=== PATIENT | male | born 1965 | race African-American/Black ===

== ENCOUNTER 2017-01-25 13:13 | Inpatient (IN) | payer OTHER ==
[2017-01-25] VITALS (7 sets, daily range): BP systolic 145–180; BP diastolic 98–114; PULSE 87–115; RESP 16–32; TEMP 97.5–98.2; O2SAT 94–98
[~2017-01-25] VITALS: Ht 165.1 cm; Wt 152.4 kg
[~2017-01-25 13:13] MED LIST: CORE25TA PO; FURO20 PO; LISI-587 PO; SPIR25 PO
[2017-01-25] MEDS ORDERED: potassium (13:57)
[2017-01-25] MEDS ORDERED: FURO40TA PO (13:57)
[2017-01-25] MEDS ORDERED: ASPI81CH37 CHEW (13:57)
[2017-01-25] MEDS ORDERED: LISI20TA3 PO (13:57)
[2017-01-25] MEDS ORDERED: CARV25TA PO (13:57)
[2017-01-25] MEDS ORDERED: FUROSEMIDE 40 MG/4 ML VIAL IV PUSH ONE (14:00)
[2017-01-25] MEDS ORDERED: K-TA10TA PO (14:17)
--- NOTE | 2017-01-25 14:17 | PD ---
HPI Chief Complaint: Respiratory Symptoms Time Seen by Provider: 14:15 Travel History International Travel<30 days: No Contact w/Intl Traveler<30days: No Traveled to known affect area: No History of Present Illness HPI 51-year-old male that presents to the ED for evaluation of shortness of breath with exertion as well as swelling. Patient has a history of CHF. Questionable compliance. Per patient his been on disability but apparently he is Dr. do not believe that he was in disability anymore so he's had insurance issues as well as money issues keeping his prescriptions under control. Per patient his been taking some of his Lasix but occasionally in all the time. He denies any chest pain. Per patient he feels swollen. His legs are swollen. He states that he feels short of breath with exertion but for the past couple of weeks his been getting worse to the point where he is short of breath even with just sitting or lying. He states that he feels more swelling on his abdomen as well. He has not eaten today. He has not seen anybody for this. Denies any recent travel or injury. No history of smoking. History of high blood pressure but no diabetes. History of high cholesterol. States that his pain is 2 out of 10 mainly on the lower legs. He does have some chronic changes in his legs from the swelling. PFSH Past Medical History Hx Anticoagulant Therapy: No Cardiovascular Problems: Yes (CHF, HTN ) High Cholesterol: Yes Congestive Heart Failure: Yes Hypertension: Yes Integumentary: Yes (chronic ulcers to bilateral lower extremities) Influenza Vaccination: No Past Surgical History Abdominal Surgery: Yes (hernia repair) Social History Alcohol Use: No Tobacco Use: No Substance Use: No Allergies-Medications (Allergen,Severity, Reaction): Coded Allergies: Dairy (Verified Allergy, Severe, 01/25/17) Reported Meds & Prescriptions Reported Meds & Active Scripts Active Reported K-Tab (Potassium Chloride) 10 Meq Tab 10 Meq PO DAILY Aspirin Low Dose (Aspirin) 81 Mg Chew 81 Mg CHEW DAILY Lisinopril-Hctz 20-25 Mg Tab 1 Tab PO DAILY Furosemide 40 Mg Tab 40 Mg PO BID Carvedilol 25 Mg Tab 25 Mg PO BID Review of Systems Except as stated in HPI: all other systems reviewed are Neg Physical Exam Narrative GENERAL: SKIN: Warm and dry. HEAD: Atraumatic. Normocephalic. EYES: Pupils equal and round. No scleral icterus. No injection or drainage. ENT: No nasal bleeding or discharge. Mucous membranes pink and moist. Tongue is midline. No uvula deviation. NECK: Trachea midline. No JVD. CARDIOVASCULAR: Tachycardic rate and rhythm. No murmurs, S3, S4. RESPIRATORY: No accessory muscle use. Clear to auscultation. Breath sounds equal bilaterally. GASTROINTESTINAL: Abdomen soft, non-tender, nondistended. Hepatic and splenic margins not palpable. MUSCULOSKELETAL: Extremities without clubbing, cyanosis, or edema. No obvious deformities. Full range of motion of the upper and lower extremities bilaterally. 2+ pulses bilaterally. 2+ pitting edema in the lower extremities with venous changes noted. NEUROLOGICAL: Awake and alert. No obvious cranial nerve deficits. Motor grossly within normal limits. Five out of 5 muscle strength in the arms and legs. Normal speech. PSYCHIATRIC: Appropriate mood and affect; insight and judgment normal. Data Data Last Documented VS Vital Signs Date Time Temp Pulse Resp B/P Pulse Ox O2 Delivery O2 Flow Rate FiO2 01/25/17 14:30 113 32 180/114 94 Nasal Cannula 2 01/25/17 13:15 98.2 Orders Electrocardiogram (01/25/17 13:56) Complete Blood Count With Diff (01/25/17 13:56) Comprehensive Metabolic Panel (01/25/17 13:56) Ckmb (Isoenzyme) Profile (01/25/17 13:56) Troponin I (01/25/17 13:56) B-Type Natriuretic Peptide (01/25/17 13:56) Prothrombin Time / Inr (Pt) (01/25/17 13:56) Act Partial Throm Time (Ptt) (01/25/17 13:56) Urinalysis - C+S If Indicated (01/25/17 13:56) Chest, Single Ap (01/25/17 13:56) Iv Access Insert/Monitor (01/25/17 13:56) Ecg Monitoring (01/25/17 13:56) Oximetry (01/25/17 13:56) Furosemide Inj (Lasix Inj) (01/25/17 14:00) Us Leg Venous Doppler Bilat (01/25/17 ) CKMB (01/25/17 14:00) CKMB% (01/25/17 14:00) Potassium Chloride (Kcl) (01/25/17 15:00) Aspirin (Aspirin) (01/25/17 15:00) Labs Laboratory Tests Test 01/25/17 01/25/17 14:00 14:43 White Blood Count 5.8 TH/MM3 Red Blood Count 5.52 MIL/MM3 Hemoglobin 13.2 GM/DL Hematocrit 41.9 % Mean Corpuscular Volume 76.0 FL Mean Corpuscular Hemoglobin 24.0 PG Mean Corpuscular Hemoglobin 31.5 % Concent Red Cell Distribution Width 19.3 % Platelet Count 277 TH/MM3 Mean Platelet Volume 9.0 FL Neutrophils (%) (Auto) 64.6 % Lymphocytes (%) (Auto) 23.6 % Monocytes (%) (Auto) 9.8 % Eosinophils (%) (Auto) 0.8 % Basophils (%) (Auto) 1.2 % Neutrophils # (Auto) 3.8 TH/MM3 Lymphocytes # (Auto) 1.4 TH/MM3 Monocytes # (Auto) 0.6 TH/MM3 Eosinophils # (Auto) 0.0 TH/MM3 Basophils # (Auto) 0.1 TH/MM3 CBC Comment AUTO DIFF Prothrombin Time 13.8 SEC Prothromb Time International 1.2 RATIO Ratio Activated Partial 27.8 SEC Thromboplast Time Sodium Level 145 MEQ/L Potassium Level 2.9 MEQ/L Chloride Level 105 MEQ/L Carbon Dioxide Level 29.9 MEQ/L Anion Gap 10 MEQ/L Blood Urea Nitrogen 13 MG/DL Creatinine 1.15 MG/DL Estimat Glomerular Filtration 81 ML/MIN Rate Random Glucose 114 MG/DL Calcium Level 9.0 MG/DL Total Bilirubin 1.4 MG/DL Aspartate Amino Transf 31 U/L (AST/SGOT) Alanine Aminotransferase 22 U/L (ALT/SGPT) Alkaline Phosphatase 112 U/L Total Creatine Kinase 251 U/L Creatine Kinase MB 3.6 NG/ML Troponin I 0.06 NG/ML B-Type Natriuretic Peptide 579 PG/ML Total Protein 7.2 GM/DL Albumin 3.0 GM/DL Urine Color YELLOW Urine Turbidity CLEAR Urine pH 7.0 Urine Specific [place] 1.010 Urine Protein 30 mg/dL Urine Glucose (UA) NEG mg/dL Urine Ketones NEG mg/dL Urine Occult Blood NEG Urine Nitrite NEG Urine Bilirubin NEG Urine Urobilinogen 2.0 MG/DL Urine Leukocyte Esterase NEG Urine WBC LESS THAN 1 /hpf Urine Hyaline Casts 5 /lpf Urine Mucus FEW /lpf Microscopic Urinalysis Comment CULT NOT INDICATED MDM Medical Decision Making Medical Screen Exam Complete: Yes Emergency Medical Condition: Yes Medical Record Reviewed: Yes Interpretation(s) CBC & BMP Diagram 01/25/17 14:00 LFTS WNL BNP in the 500s Troponin of 0.06 EKG shows sinus tachycardia but no sign of acute ischemia or arrhythmia but by me and attending. Last Impressions Chest X-Ray 01/25/17 1356 Signed Impressions: Service Date/Time: Wednesday, January 25, 2017 14:05 - CONCLUSION: Enlargement of the cardiac silhouette. No acute pulmonary abnormality is identified. Mane Ramirez MD Differential Diagnosis CHF exacerbation versus CHF versus fluid overload versus chest pain versus a typical chest pain versus pleural effusion Narrative Course 51-year-old male that presents to the ED for evaluation of what appears to be CHF exacerbation. Patient was properly examined and was found to have signs and symptoms consistent with fluid overload secondary to noncompliance with CHF treatment. At this time I recommend labs and imaging. Patient is agreement with this plan. Patient was given IV Lasix here in the ED. Labs and imaging showed elevated troponin as well as BNP. Patient has signs and symptoms very consistent with CHF exacerbation. Patient is noncompliant. Because of this I do recommend admission for CHF exacerbation and workup of the positive troponin. This was discussed with the patient is in agreement with plan. Discussed this with my attending Dr. Looney who agrees to admission. Case discussed with Dr. Tran who agrees to admission. Procedures EKG Prior to Arrival: No Diagnosis Primary Impression: Acute exacerbation of CHF (congestive heart failure) Qualified Code: I50.23 - Acute on chronic systolic congestive heart failure Additional Impression: Elevated troponin Admitting Information Admitting Physician Requests: Observation Piyush Brewer January 25, 2017 14:17
[2017-01-25 14:25] LABS: AUTOMATED NEUTROPHIL # 3.8 TH/MM3 (1.8-7.7); BASOPHIL # 0.1 TH/MM3 (0-0.2); BASOPHIL % 1.2 % (0.0-2.0); EOSINOPHIL % 0.8 % (0.0-4.0); HEMATOCRIT 41.9 % (39.0-51.0); HEMO FLAGS AUTO DIFF; LYMPH % 23.6 % (9.0-44.0); LYMPHOCYTE # 1.4 TH/MM3 (1.0-4.8); MEAN CORPUSCULAR HGB CONC 31.5 % (32.0-36.0); MONO % 9.8 % (0.0-8.0); NEUT % 64.6 % (16.0-70.0); PLATELET COUNT 277 TH/MM3 (150-450); RED BLOOD COUNT 5.52 MIL/MM3 (4.50-5.90); RED CELL DISTRIBUTION WIDTH 19.3 % (11.6-17.2); WHITE BLOOD COUNT 5.8 TH/MM3 (4.0-11.0)
[2017-01-25 14:32] LABS: APTT (PATIENT) 27.8 SEC (24.3-30.1); INTERNATIONAL NORMALIZED RATIO 1.2 RATIO; PROTHROMBIN TIME - PATIENT 13.8 SEC (9.8-11.6)
--- NOTE | 2017-01-25 14:36 | RADRPT ---
EXAM DATE/TIME: 01/25/2017 14:05 [facility] COMPARISON: No previous studies available for comparison. INDICATIONS : Short of breath and abdomen distention. MEDICAL HISTORY : None. SURGICAL HISTORY : None. ENCOUNTER: Initial ACUITY: 4 - 6 days PAIN SCORE: 0/10 LOCATION: Bilateral chest FINDINGS: Portable AP view of the chest demonstrates enlargement of the cardiac silhouette. No pleural effusion , airspace consolidation, or pneumothorax is identified. The bones and soft tissues demonstrate no ac malissa finding. CONCLUSION: Enlargement of the cardiac silhouette. No acute pulmonary abnormality is identified. Mane Ramirez MD on January 25, 2017 at 14:33 Board Certified Radiologist. This report was verified electronically.
[2017-01-25 14:50] LABS: ALKALINE PHOSPHATASE 112 U/L (45-117); ALT (GPT) 22 U/L (12-78); ANION GAP 10 MEQ/L (5-15); AST (GOT) 31 U/L (15-37); BICARBONATE 29.9 MEQ/L (21.0-32.0); BLOOD UREA NITROGEN 13 MG/DL (7-18); CHLORIDE 105 MEQ/L (98-107); CREATINE KINASE 251 U/L (39-308); GLOMERULAR FILTRATION RATE 81 ML/MIN (>89); SODIUM (NA) 145 MEQ/L (136-145); TOTAL BILIRUBIN ADULT 1.4 MG/DL (0.2-1.0)
[2017-01-25 14:53] LABS: POTASSIUM 2.9 MEQ/L (3.5-5.1)
[2017-01-25] MEDS ORDERED: POTASSIUM CHLORIDE 10 MEQ CONTROLLED RELEASE TAB PO ONE ×2 (15:00→19:00)
[2017-01-25] MEDS ORDERED: ASPIRIN 325 MG TAB PO ONE (15:00)
[2017-01-25 15:05] LABS: BLOOD, URINE NEG (NEG); COMMENT (UR) CULT NOT INDICATED; CULTURE IF INDICATED CULT NOT INDICATED; GLUCOSE,URINE NEG (NEG); HYALINE CAST, URINE 5 /lpf (RARE); KETONE, URINE NEG (NEG); MUCUS URINE FEW /lpf (OCC); NITRITE,URINE NEG (NEG); URINE COLOR YELLOW (YELLW/STRAW)
[2017-01-25 15:14] LABS: CKMB 3.6 NG/ML (0.5-3.6)
[2017-01-25] MEDS ORDERED: ENALAPRILAT 1.25 MG/ML VIAL IV PUSH PRN (15:30)
--- NOTE | 2017-01-25 15:51 | HHI.HP ---
[facility] [place] [facility] Primary Care Physician No Primary Care Physician Admission Diagnosis CHF exacerbation, positive troponin Diagnoses: (1) Acute exacerbation of CHF (congestive heart failure) Diagnosis: Principal Chief Complaint: shortness of breath Travel History International Travel<30 Days: No Contact w/Intl Traveler <30 Da: No Traveled to Known Affected Are: No History of Present Illness patient is a 51 y/o male with history of CHF, noncompliant with medical treatment, presented to ER with sob. he says that he was diagnosed with heart failure back in 2008. he says that after he lost his disability he couldn't have a follow-up with his doctor and couldn't get his medications. he says that he's had sob for a while and noticed that his feet legs are swollen and getting worse. he reports orthopnea. he's not sure if he's gained any weights . he denies any chest pain. Review of Systems Respiratory: COMPLAINS OF: Shortness of breath Cardiovascular: COMPLAINS OF: Dyspnea on Exertion, Lower Extremity Edema, Orthopnea Past Family Social History Past Medical History CHF hypertension Past Surgical History none Reported Medications K-Tab (Potassium Chloride) 10 Meq Tab 10 Meq PO DAILY Aspirin Low Dose (Aspirin) 81 Mg Chew 81 Mg CHEW DAILY Lisinopril-Hctz 20-25 Mg Tab 1 Tab PO DAILY Furosemide 40 Mg Tab 40 Mg PO BID Carvedilol 25 Mg Tab 25 Mg PO BID Allergies: Coded Allergies: Dairy (Verified Allergy, Severe, 01/25/17) Active Ordered Medications Current Medications Furosemide (Lasix Inj) 40 mg ONCE ONCE IV PUSH Last administered on 01/25/17 14:06; Start 01/25/17 at 14:00; Stop 01/25/17 at 14:01; Status DC Potassium Chloride (KCl) 30 meq ONCE ONCE PO Last administered on 01/25/17 15: 12; Start 01/25/17 at 15:00; Stop 01/25/17 at 15:01; Status DC Aspirin (Aspirin) 325 mg ONCE ONCE PO Last administered on 01/25/17 15:12; Start 01/25/17 at 15:00; Stop 01/25/17 at 15:01; Status DC Furosemide (Lasix Inj) 40 mg DAILY IV PUSH ; Start 01/26/17 at 09:00 Potassium Chloride (KCl) 40 meq ONCE ONCE PO ; Start 01/25/17 at 19:00; Stop 01/25/17 at 19:01 Potassium Chloride (KCl) 20 meq DAILY PO ; Start 01/26/17 at 09:00 Lisinopril (Prinivil) 20 mg DAILY PO ; Start 01/26/17 at 09:00 Enalaprilat (Vasotec Inj) 1.25 mg Q8H PRN IV PUSH SBP> OR = 180, DBP> OR = 100 ; Start 01/25/17 at 15:30 Aspirin (Aspirin Chew) 81 mg DAILY CHEW ; Start 01/26/17 at 09:00 Carvedilol (Coreg) 25 mg BID PO ; Start 01/25/17 at 21:00 Family History heart disease in mother. Social History no smoking or drinking. Physical Exam Vital Signs Vital Signs Date Time Temp Pulse Resp B/P Pulse Ox O2 Delivery O2 Flow Rate FiO2 01/25/17 14:30 113 32 180/114 94 Nasal Cannula 2 01/25/17 13:58 115 95 Nasal Cannula 2 01/25/17 13:15 98.2 87 16 178/100 95 Physical Exam GENERAL; obese male with some sob but with no acute distress. SKIN: No rashes, ecchymoses or lesions. Cool and dry. HEAD: Atraumatic. Normocephalic. No temporal or scalp tenderness. EYES: Pupils equal round and reactive. Extraocular motions intact. No scleral icterus. No injection or drainage. ENT: Nose without bleeding, purulent drainage or septal hematoma. Throat without erythema, tonsillar hypertrophy or exudate. Uvula midline. Airway patent. NECK: Trachea midline. No JVD or lymphadenopathy. Supple, nontender, no meningeal signs. CARDIOVASCULAR: Regular rate and rhythm without murmurs, gallops, or rubs. RESPIRATORY: Clear to auscultation. Breath sounds equal bilaterally. No wheezes , rales, or rhonchi. GASTROINTESTINAL: Abdomen soft, non-tender, nondistended. No hepato-splenomegaly , or palpable masses. No guarding. MUSCULOSKELETAL: Extremities with bilateral pedal edema. NEUROLOGICAL: Awake and alert. Cranial nerves II through XII intact. Motor and sensory grossly within normal limits. Five out of 5 muscle strength in all muscle groups. Normal speech. Laboratory Laboratory Tests Test 01/25/17 01/25/17 14:00 14:43 White Blood Count 5.8 Red Blood Count 5.52 Hemoglobin 13.2 Hematocrit 41.9 Mean Corpuscular Volume 76.0 Mean Corpuscular Hemoglobin 24.0 Mean Corpuscular Hemoglobin 31.5 Concent Red Cell Distribution Width 19.3 Platelet Count 277 Mean Platelet Volume 9.0 Neutrophils (%) (Auto) 64.6 Lymphocytes (%) (Auto) 23.6 Monocytes (%) (Auto) 9.8 Eosinophils (%) (Auto) 0.8 Basophils (%) (Auto) 1.2 Neutrophils # (Auto) 3.8 Lymphocytes # (Auto) 1.4 Monocytes # (Auto) 0.6 Eosinophils # (Auto) 0.0 Basophils # (Auto) 0.1 CBC Comment AUTO DIFF Prothrombin Time 13.8 Prothromb Time International 1.2 Ratio Activated Partial 27.8 Thromboplast Time Sodium Level 145 Potassium Level 2.9 Chloride Level 105 Carbon Dioxide Level 29.9 Anion Gap 10 Blood Urea Nitrogen 13 Creatinine 1.15 Estimat Glomerular Filtration 81 Rate Random Glucose 114 Calcium Level 9.0 Total Bilirubin 1.4 Aspartate Amino Transf 31 (AST/SGOT) Alanine Aminotransferase 22 (ALT/SGPT) Alkaline Phosphatase 112 Total Creatine Kinase 251 Creatine Kinase MB 3.6 Troponin I 0.06 B-Type Natriuretic Peptide 579 Total Protein 7.2 Albumin 3.0 Urine Color YELLOW Urine Turbidity CLEAR Urine pH 7.0 Urine Specific [place] 1.010 Urine Protein 30 Urine Glucose (UA) NEG Urine Ketones NEG Urine Occult Blood NEG Urine Nitrite NEG Urine Bilirubin NEG Urine Urobilinogen 2.0 Urine Leukocyte Esterase NEG Urine WBC LESS THAN 1 Urine Hyaline Casts 5 Urine Mucus FEW Microscopic Urinalysis Comment CULT NOT INDICATED Result Diagram: 01/25/17 1400 01/25/17 1400 Imaging Last Impressions Chest X-Ray 01/25/17 1356 Signed Impressions: Service Date/Time: Wednesday, January 25, 2017 14:05 - CONCLUSION: Enlargement of the cardiac silhouette. No acute pulmonary abnormality is identified. Mane Ramirez MD EKG; sinus tachycardia Assessment and Plan Assessment and Plan A/P - acute on chronic CHF- type unknown at this time continue with IV lasix- will resume lisinopril and coreg- will monitor the urine output and clinical response will check echo/ venous doppler of both legs pending. -minimal elevation of troponin- likely due to CHF- denies chest pain and no acute EKG changes received aspirin in ER- will monitor the trend -hypertension; resume lisinopril and coreg-vasotec as needed- will monitor and adjust the regimen as needed. -hypokalemia; will replace and monitor -DVT prophylaxis with lovenox Discussed Condition With ER and the patient. Problem Qualifiers (1) Acute exacerbation of CHF (congestive heart failure): Qualified Code: I50.23 - Acute on chronic systolic congestive heart failure Luis Miguel Solorzano MD January 25, 2017 15:51
[2017-01-25 16:17] LABS: PLATELET ESTIMATE SMEAR NORMAL (NORMAL); PLATELET MORPHOLOGY ENLARGED (NORMAL); SCAN/DIFF AUTO DIFF CONFIRMED
[2017-01-25 16:18] LABS: OVALOCYTES 1+ (NORMAL); TARGET CELLS 1+ (NORMAL); TEARDROP RBCS 1+ (NORMAL)
[2017-01-25] MEDS: ENOXAPARIN SODIUM 40 MG/0.4 ML SYRINGE SQ SCH (16:28)
--- NOTE | 2017-01-25 17:27 | RADRPT ---
EXAM DATE/TIME: 01/25/2017 16:17 [facility] COMPARISON: No previous studies available for comparison. INDICATIONS : Bilateral leg swelling. MEDICAL HISTORY : Congestive heart failure. Hypercholesterolemia. Hypertension. Bilateral leg ulcers. SURGICAL HISTORY : Umbilical hernia repair. ENCOUNTER: Initial ACUITY: 1 day PAIN SCORE: 9/10 LOCATION: Bilateral legs. TECHNIQUE: Venous ultrasound of the left and right leg was performed from the inguinal ligament to the proximal calf. Real-time, color Doppler and spectral tracing, compression and augmentation techniques were us ed. FINDINGS: RIGHT LEG: There is normal compressibility of the deep venous system from the inguinal region to the proximal ca lf. No echogenic clot is seen in the lumen of the common femoral, femoral, popliteal, and posterior tibial veins. There is a normal response of the venous system to proximal and distal augmentation an d respiration. There is sporadic thrombus present within the superficial greater saphenous vein. LEFT LEG: There is normal compressibility of the deep venous system from the inguinal region to the proximal ca lf. No echogenic clot is seen in the lumen of the common femoral, femoral, popliteal, and posterior tibial veins. There is a normal response of the venous system to proximal and distal augmentation an d respiration. CONCLUSION: Greater saphenous vein thrombus in the right leg. No evidence of DVT in either leg. Mane Christianson MD on January 25, 2017 at 17:23 Board Certified Radiologist. This report was verified electronically.
[2017-01-25] MEDS: CARVEDILOL 12.5 MG TAB PO SCH (20:49)
[2017-01-26] VITALS (9 sets, daily range): BP systolic 128–149; BP diastolic 73–99; PULSE 87–97; RESP 18–20; TEMP 97.6–98.6; O2SAT 94–97
[2017-01-26 04:01] LABS: BICARBONATE 30.6 MEQ/L (21.0-32.0); POTASSIUM 3.3 MEQ/L (3.5-5.1)
[2017-01-26] MEDS ORDERED: POTASSIUM CHLORIDE 8 MEQ CONTROLLED RELEASE TAB PO ONE (05:15)
[2017-01-26] MEDS: ASPIRIN EC 81 MG TABEC PO SCH (08:12)
[2017-01-26] MEDS: LISINOPRIL 20 MG TAB PO SCH (08:13)
[2017-01-26] MEDS: POTASSIUM CHLORIDE 20 MEQ CONTROLLED RELEASE TAB PO SCH (08:13)
[2017-01-26] MEDS: CARVEDILOL 12.5 MG TAB PO SCH ×2 (08:14→22:50)
[2017-01-26] MEDS: FUROSEMIDE 40 MG/4 ML VIAL IV PUSH SCH (08:15)
[2017-01-26] MEDS ORDERED: ASPIRIN 81 MG CHEW TAB CHEW SCH (09:00)
--- NOTE | 2017-01-26 10:25 | EKG ---
Date Performed: 01/25/2017 Time Performed: 14:04:34 PTAGE: 51 years EKG: SINUS TACHYCARDIA POSSIBLE LEFT ATRIAL ENLARGEMENT MODERATE INTRAVENTRICULAR CONDUCTION DEL AY ST DEVIATION AND MODERATE T-WAVE ABNORMALITY, CONSIDER LATERAL ISCHEMIA ABNORMAL ECG NO PREVIOUS TRACING DOCTOR: Eric Bradley Interpretating Date/Time 01/26/2017 10:24:26
--- NOTE | 2017-01-26 11:53 | HHI.PR ---
Subjective Remarks in no acute distress. no chest pain. says that overall fells fine. Objective Vitals Vital Signs Date Time Temp Pulse Resp B/P Pulse Ox O2 Delivery O2 Flow Rate FiO2 01/26/17 09:00 Nasal Cannula 2.00 01/26/17 08:50 96 Nasal Cannula 2.00 01/26/17 04:38 98.5 97 20 149/99 94 01/26/17 04:00 Nasal Cannula 2.00 01/26/17 00:00 97.6 96 20 129/86 97 01/26/17 00:00 Nasal Cannula 2.00 01/25/17 21:16 113 01/25/17 20:00 97.5 108 20 155/99 98 01/25/17 20:00 Nasal Cannula 2.00 01/25/17 17:30 96 Nasal Cannula 2.00 01/25/17 16:30 102 22 145/98 95 Nasal Cannula 2 01/25/17 14:30 113 32 180/114 94 Nasal Cannula 2 01/25/17 13:58 115 95 Nasal Cannula 2 01/25/17 13:15 98.2 87 16 178/100 95 I/O 01/25/17 01/25/17 01/25/17 01/26/17 01/26/17 01/26/17 07:00 15:00 23:00 07:00 15:00 23:00 Intake Total 480 ml 240 ml Output Total 200 ml 400 ml Balance -200 ml 80 ml 240 ml Intake Oral 480 ml 240 ml Output Urine Total 200 ml 400 ml # Voids 1 3 Result Diagram: 01/25/17 1400 01/26/17 0327 Imaging Last Impressions Chest X-Ray 01/25/17 1356 Signed Impressions: Service Date/Time: Wednesday, January 25, 2017 14:05 - CONCLUSION: Enlargement of the cardiac silhouette. No acute pulmonary abnormality is identified. Mane Ramirez MD Lower Extremity Ultrasound 01/25/17 0000 Signed Impressions: Service Date/Time: Wednesday, January 25, 2017 16:17 - CONCLUSION: Greater saphenous vein thrombus in the right leg. No evidence of DVT in either leg. Mane Christianson MD Objective Remarks GENERAL: This is a well-nourished, well-developed patient, in no apparent distress. CARDIOVASCULAR: Regular rate and regular rhythm without murmurs, gallops, or rubs. RESPIRATORY: Clear to auscultation. Breath sounds equal bilaterally. No wheezes , rales, or rhonchi. GASTROINTESTINAL: Abdomen soft, non-tender, nondistended. Normal, active bowel sounds MUSCULOSKELETAL: Extremities with bilateral pedal edema NEURO: Alert & Oriented x4 to person, place, time, situation. Moves all ext x4 Procedures none Medications and IVs Current Medications Furosemide (Lasix Inj) 40 mg ONCE ONCE IV PUSH Last administered on 01/25/17 14:06; Start 01/25/17 at 14:00; Stop 01/25/17 at 14:01; Status DC Potassium Chloride (KCl) 30 meq ONCE ONCE PO Last administered on 01/25/17 15: 12; Start 01/25/17 at 15:00; Stop 01/25/17 at 15:01; Status DC Aspirin (Aspirin) 325 mg ONCE ONCE PO Last administered on 01/25/17 15:12; Start 01/25/17 at 15:00; Stop 01/25/17 at 15:01; Status DC Furosemide (Lasix Inj) 40 mg DAILY IV PUSH Last administered on 01/26/17 08:15 ; Start 01/26/17 at 09:00 Potassium Chloride (KCl) 40 meq ONCE ONCE PO Last administered on 01/25/17 20: 50; Start 01/25/17 at 19:00; Stop 01/25/17 at 19:01; Status DC Potassium Chloride (KCl) 20 meq DAILY PO Last administered on 01/26/17 08:13; Start 01/26/17 at 09:00 Lisinopril (Prinivil) 20 mg DAILY PO Last administered on 01/26/17 08:13; Start 01/26/17 at 09:00 Enalaprilat (Vasotec Inj) 1.25 mg Q8H PRN IV PUSH SBP> OR = 180, DBP> OR = 100 ; Start 01/25/17 at 15:30 Aspirin (Aspirin Chew) 81 mg DAILY CHEW ; Start 01/26/17 at 09:00; Stop 01/26/17 at 09:00; Status DC Carvedilol (Coreg) 25 mg BID PO Last administered on 01/26/17 08:14; Start 01/25 at 21:00 Aspirin (Ecotrin Ec) 81 mg DAILY PO Last administered on 01/26/17 08:12; Start 01/26/17 at 09:00 Enoxaparin Sodium (Lovenox Inj) 40 mg Q24H SQ Last administered on 01/25/17 16: 28; Start 01/25/17 at 16:00 Potassium Chloride (KCl) 40 meq ONCE ONCE PO Last administered on 01/26/17 06: 39; Start 01/26/17 at 05:15; Stop 01/26/17 at 05:16; Status DC A/P Assessment and Plan A/P - acute on chronic CHF- type unknown at this time continue with IV lasix- continue lisinopril and coreg- will monitor the urine output and clinical response echo pending. venous doppler of the lower extremities negative for DVT. -minimal elevation of troponin- likely due to CHF- denies chest pain and no acute EKG changes received aspirin in ER- -hypertension; resumed lisinopril and coreg-vasotec as needed- will monitor and adjust the regimen as needed. -hypokalemia; will replace and monitor -DVT prophylaxis with lovenox Luis Miguel Solorzano MD January 26, 2017 11:53
[2017-01-26] MEDS ORDERED: POTASSIUM CHLORIDE 10 MEQ CONTROLLED RELEASE TAB PO ONE (12:00)
[2017-01-26] MEDS ORDERED: FUROSEMIDE 20 MG/2 ML VIAL IV PUSH ONE (14:00)
[2017-01-26] MEDS: ENOXAPARIN SODIUM 40 MG/0.4 ML SYRINGE SQ SCH (16:08)
[2017-01-27] VITALS (9 sets, daily range): BP systolic 113–134; BP diastolic 62–88; PULSE 84–94; RESP 20; TEMP 97.2–98.1; O2SAT 93–99
[2017-01-27 08:08] LABS: BICARBONATE 31.1 MEQ/L (21.0-32.0); POTASSIUM 3.5 MEQ/L (3.5-5.1)
[2017-01-27] MEDS: ASPIRIN EC 81 MG TABEC PO SCH (08:57)
[2017-01-27] MEDS: LISINOPRIL 20 MG TAB PO SCH (08:57)
[2017-01-27] MEDS: CARVEDILOL 12.5 MG TAB PO SCH ×2 (08:57→22:20)
[2017-01-27] MEDS: POTASSIUM CHLORIDE 20 MEQ CONTROLLED RELEASE TAB PO SCH (08:57)
[2017-01-27] MEDS: FUROSEMIDE 40 MG/4 ML VIAL IV PUSH SCH (08:58)
--- NOTE | 2017-01-27 09:10 | HHI.PR ---
Subjective Remarks in no acute distress. no sob or chest pain. d/w the RN and no acute issues over night. Objective Vitals Vital Signs Date Time Temp Pulse Resp B/P Pulse Ox O2 Delivery O2 Flow Rate FiO2 01/27/17 04:00 98.0 93 20 113/70 97 01/27/17 00:00 98.1 93 20 126/85 97 01/27/17 00:00 Nasal Cannula 2.00 01/26/17 23:20 Nasal Cannula 2.00 01/26/17 20:06 97 01/26/17 20:00 Nasal Cannula 2.00 01/26/17 20:00 98.4 95 20 128/73 97 01/26/17 16:00 98.6 90 18 135/90 94 01/26/17 12:00 97.9 87 18 141/90 97 I/O 01/26/17 01/26/17 01/26/17 01/27/17 01/27/17 01/27/17 07:00 15:00 23:00 07:00 15:00 23:00 Intake Total 240 ml 480 ml 320 ml 480 ml Balance 240 ml 480 ml 320 ml 480 ml Intake Oral 240 ml 480 ml 320 ml 480 ml # Voids 2 2 2 # Bowel Movements 1 Result Diagram: 01/25/17 1400 01/27/17 0633 Imaging Last Impressions Chest X-Ray 01/25/17 1356 Signed Impressions: Service Date/Time: Wednesday, January 25, 2017 14:05 - CONCLUSION: Enlargement of the cardiac silhouette. No acute pulmonary abnormality is identified. Mane Ramirez MD Lower Extremity Ultrasound 01/25/17 0000 Signed Impressions: Service Date/Time: Wednesday, January 25, 2017 16:17 - CONCLUSION: Greater saphenous vein thrombus in the right leg. No evidence of DVT in either leg. Mane Christianson MD Objective Remarks GENERAL: This is a well-nourished, well-developed patient, in no apparent distress. CARDIOVASCULAR: Regular rate and regular rhythm without murmurs, gallops, or rubs. RESPIRATORY: Clear to auscultation. Breath sounds equal bilaterally. No wheezes , rales, or rhonchi. GASTROINTESTINAL: Abdomen soft, non-tender, nondistended. Normal, active bowel sounds MUSCULOSKELETAL: Extremities with bilateral pedal edema NEURO: Alert & Oriented x4 to person, place, time, situation. Moves all ext x4 Procedures none Medications and IVs Current Medications Furosemide (Lasix Inj) 40 mg ONCE ONCE IV PUSH Last administered on 01/25/17 14:06; Start 01/25/17 at 14:00; Stop 01/25/17 at 14:01; Status DC Potassium Chloride (KCl) 30 meq ONCE ONCE PO Last administered on 01/25/17 15: 12; Start 01/25/17 at 15:00; Stop 01/25/17 at 15:01; Status DC Aspirin (Aspirin) 325 mg ONCE ONCE PO Last administered on 01/25/17 15:12; Start 01/25/17 at 15:00; Stop 01/25/17 at 15:01; Status DC Furosemide (Lasix Inj) 40 mg DAILY IV PUSH Last administered on 01/26/17 08:15 ; Start 01/26/17 at 09:00 Potassium Chloride (KCl) 40 meq ONCE ONCE PO Last administered on 01/25/17 20: 50; Start 01/25/17 at 19:00; Stop 01/25/17 at 19:01; Status DC Potassium Chloride (KCl) 20 meq DAILY PO Last administered on 01/26/17 08:13; Start 01/26/17 at 09:00 Lisinopril (Prinivil) 20 mg DAILY PO Last administered on 01/26/17 08:13; Start 01/26/17 at 09:00 Enalaprilat (Vasotec Inj) 1.25 mg Q8H PRN IV PUSH SBP> OR = 180, DBP> OR = 100 ; Start 01/25/17 at 15:30 Aspirin (Aspirin Chew) 81 mg DAILY CHEW ; Start 01/26/17 at 09:00; Stop 01/26/17 at 09:00; Status DC Carvedilol (Coreg) 25 mg BID PO Last administered on 01/26/17 22:50; Start 01/25 at 21:00 Aspirin (Ecotrin Ec) 81 mg DAILY PO Last administered on 01/26/17 08:12; Start 01/26/17 at 09:00 Enoxaparin Sodium (Lovenox Inj) 40 mg Q24H SQ Last administered on 01/26/17 16: 08; Start 01/25/17 at 16:00 Potassium Chloride (KCl) 40 meq ONCE ONCE PO Last administered on 01/26/17 06: 39; Start 01/26/17 at 05:15; Stop 01/26/17 at 05:16; Status DC Furosemide (Lasix Inj) 20 mg ONCE ONCE IV PUSH Last administered on 01/26/17 13:20; Start 01/26/17 at 14:00; Stop 01/26/17 at 14:01; Status DC Potassium Chloride (KCl) 30 meq ONCE ONCE PO Last administered on 01/26/17 12: 03; Start 01/26/17 at 12:00; Stop 01/26/17 at 12:01; Status DC A/P Assessment and Plan A/P - acute on chronic CHF- type unknown at this time; echo pending. continue with IV lasix- continue lisinopril and coreg- will monitor the urine output and clinical response venous doppler of the lower extremities negative for DVT. -minimal elevation of troponin- likely due to CHF- denies chest pain and no acute EKG changes continue aspirin. -hypertension; resumed lisinopril and coreg-vasotec as needed- will monitor and adjust the regimen as needed. -hypokalemia; replaced. -DVT prophylaxis with lovenox Discharge Planning dc planning within the next one-two days - pending the clinical response and echo. Luis Miguel Solorzano MD January 27, 2017 09:10
[2017-01-27] MEDS ORDERED: POTASSIUM CHLORIDE 10 MEQ CONTROLLED RELEASE TAB PO ONE (10:00)
[2017-01-27] MEDS ORDERED: FUROSEMIDE 20 MG/2 ML VIAL IV PUSH ONE (14:00)
[2017-01-27] MEDS: ENOXAPARIN SODIUM 40 MG/0.4 ML SYRINGE SQ SCH (16:10)
[2017-01-28] VITALS (9 sets, daily range): BP systolic 113–142; BP diastolic 75–82; PULSE 79–89; RESP 18–20; TEMP 97.6–98.1; O2SAT 93–99
[2017-01-28] MEDS: FUROSEMIDE 40 MG/4 ML VIAL IV PUSH SCH (08:50)
[2017-01-28] MEDS: ASPIRIN EC 81 MG TABEC PO SCH (08:51)
[2017-01-28] MEDS: CARVEDILOL 12.5 MG TAB PO SCH ×2 (08:51→22:07)
[2017-01-28] MEDS: POTASSIUM CHLORIDE 20 MEQ CONTROLLED RELEASE TAB PO SCH (08:51)
[2017-01-28] MEDS: LISINOPRIL 20 MG TAB PO SCH (08:51)
--- NOTE | 2017-01-28 11:11 | HHI.PR ---
Subjective Remarks overall doing fine. no chest pain. says that his sob over improved. no new complaints. Objective Vitals Vital Signs Date Time Temp Pulse Resp B/P Pulse Ox O2 Delivery O2 Flow Rate FiO2 01/28/17 10:55 99 Nasal Cannula 2.00 01/28/17 08:30 97.8 83 18 116/75 98 01/28/17 04:00 Nasal Cannula 2.00 01/28/17 04:00 97.9 84 20 113/79 99 01/28/17 00:00 97.6 80 18 113/75 97 01/28/17 00:00 Nasal Cannula 2.00 01/27/17 21:22 98 Nasal Cannula 2.00 01/27/17 20:00 87 01/27/17 20:00 97.9 94 20 134/62 93 01/27/17 20:00 Nasal Cannula 2.00 01/27/17 14:00 98.0 92 20 132/63 95 01/27/17 12:01 98 Nasal Cannula 2.00 01/27/17 12:00 97.8 84 20 127/88 98 I/O 01/27/17 01/27/17 01/27/17 01/28/17 01/28/17 01/28/17 06:59 14:59 22:59 06:59 14:59 22:59 Intake Total 480 ml 840 ml 240 ml Balance 480 ml 840 ml 240 ml Intake Oral 480 ml 840 ml 240 ml # Voids 2 3 2 # Bowel Movements 0 1 Result Diagram: 01/25/17 1400 01/27/17 0633 Imaging Last Impressions Chest X-Ray 01/25/17 1356 Signed Impressions: Service Date/Time: Wednesday, January 25, 2017 14:05 - CONCLUSION: Enlargement of the cardiac silhouette. No acute pulmonary abnormality is identified. Mane Ramirez MD Lower Extremity Ultrasound 01/25/17 0000 Signed Impressions: Service Date/Time: Wednesday, January 25, 2017 16:17 - CONCLUSION: Greater saphenous vein thrombus in the right leg. No evidence of DVT in either leg. Mane Christianson MD Objective Remarks GENERAL: This is a well-nourished, well-developed patient, in no apparent distress. CARDIOVASCULAR: Regular rate and regular rhythm without murmurs, gallops, or rubs. RESPIRATORY: Clear to auscultation. Breath sounds equal bilaterally. No wheezes , rales, or rhonchi. GASTROINTESTINAL: Abdomen soft, non-tender, nondistended. Normal, active bowel sounds MUSCULOSKELETAL: Extremities with bilateral pedal edema NEURO: Alert & Oriented x4 to person, place, time, situation. Moves all ext x4 Procedures none Medications and IVs Current Medications Furosemide (Lasix Inj) 40 mg ONCE ONCE IV PUSH Last administered on 01/25/17 14:06; Start 01/25/17 at 14:00; Stop 01/25/17 at 14:01; Status DC Potassium Chloride (KCl) 30 meq ONCE ONCE PO Last administered on 01/25/17 15: 12; Start 01/25/17 at 15:00; Stop 01/25/17 at 15:01; Status DC Aspirin (Aspirin) 325 mg ONCE ONCE PO Last administered on 01/25/17 15:12; Start 01/25/17 at 15:00; Stop 01/25/17 at 15:01; Status DC Furosemide (Lasix Inj) 40 mg DAILY IV PUSH Last administered on 01/28/17 08:50 ; Start 01/26/17 at 09:00 Potassium Chloride (KCl) 40 meq ONCE ONCE PO Last administered on 01/25/17 20: 50; Start 01/25/17 at 19:00; Stop 01/25/17 at 19:01; Status DC Potassium Chloride (KCl) 20 meq DAILY PO Last administered on 01/28/17 08:51; Start 01/26/17 at 09:00 Lisinopril (Prinivil) 20 mg DAILY PO Last administered on 01/28/17 08:51; Start 01/26/17 at 09:00 Enalaprilat (Vasotec Inj) 1.25 mg Q8H PRN IV PUSH SBP> OR = 180, DBP> OR = 100 ; Start 01/25/17 at 15:30 Aspirin (Aspirin Chew) 81 mg DAILY CHEW ; Start 01/26/17 at 09:00; Stop 01/26/17 at 09:00; Status DC Carvedilol (Coreg) 25 mg BID PO Last administered on 01/28/17 08:51; Start 01/25 at 21:00 Aspirin (Ecotrin Ec) 81 mg DAILY PO Last administered on 01/28/17 08:51; Start 01/26/17 at 09:00 Enoxaparin Sodium (Lovenox Inj) 40 mg Q24H SQ Last administered on 01/27/17 16: 10; Start 01/25/17 at 16:00 Potassium Chloride (KCl) 40 meq ONCE ONCE PO Last administered on 01/26/17 06: 39; Start 01/26/17 at 05:15; Stop 01/26/17 at 05:16; Status DC Furosemide (Lasix Inj) 20 mg ONCE ONCE IV PUSH Last administered on 01/26/17 13:20; Start 01/26/17 at 14:00; Stop 01/26/17 at 14:01; Status DC Potassium Chloride (KCl) 30 meq ONCE ONCE PO Last administered on 01/26/17 12: 03; Start 01/26/17 at 12:00; Stop 01/26/17 at 12:01; Status DC Furosemide (Lasix Inj) 20 mg ONCE ONCE IV PUSH Last administered on 01/27/17 14:52; Start 01/27/17 at 14:00; Stop 01/27/17 at 14:01; Status DC Potassium Chloride (KCl) 30 meq ONCE ONCE PO Last administered on 01/27/17 11: 33; Start 01/27/17 at 10:00; Stop 01/27/17 at 10:01; Status DC A/P Assessment and Plan A/P - acute on chronic CHF- type unknown at this time; echo pending. continue with IV lasix- continue lisinopril and coreg- will monitor the urine output and clinical response venous doppler of the lower extremities negative for DVT. -minimal elevation of troponin- likely due to CHF- denies chest pain and no acute EKG changes continue aspirin. -hypertension; resumed lisinopril and coreg-vasotec as needed- will monitor and adjust the regimen as needed. -hypokalemia; replaced. -DVT prophylaxis with lovenox Discharge Planning dc home soon- pending the result of echo. Luis Miguel Solorzano MD January 28, 2017 11:11
[2017-01-28] MEDS ORDERED: FURO40TA PO (11:12)
[2017-01-28] MEDS ORDERED: K-TA10TA PO (11:12)
[2017-01-28] MEDS ORDERED: CARV25TA PO (11:12)
[2017-01-28] MEDS ORDERED: ASPI81CH37 CHEW (11:12)
[2017-01-28] MEDS ORDERED: LISI20TA3 PO (11:12)
[2017-01-28] MEDS: ENOXAPARIN SODIUM 40 MG/0.4 ML SYRINGE SQ SCH (16:00)
[2017-01-29] VITALS (8 sets, daily range): BP systolic 115–130; BP diastolic 57–92; PULSE 83–90; RESP 18–21; TEMP 97.4–98.4; O2SAT 98–100
[2017-01-29] MEDS: ASPIRIN EC 81 MG TABEC PO SCH (09:42)
[2017-01-29] MEDS: CARVEDILOL 12.5 MG TAB PO SCH ×2 (09:42→20:28)
[2017-01-29] MEDS: LISINOPRIL 20 MG TAB PO SCH (09:42)
[2017-01-29] MEDS: POTASSIUM CHLORIDE 20 MEQ CONTROLLED RELEASE TAB PO SCH (09:43)
[2017-01-29] MEDS: FUROSEMIDE 40 MG/4 ML VIAL IV PUSH SCH (09:43)
--- NOTE | 2017-01-29 11:58 | HHI.PR ---
Subjective Remarks in no acute distress. no chest pain. still with some leg swelling. Objective Vitals Vital Signs Date Time Temp Pulse Resp B/P Pulse Ox O2 Delivery O2 Flow Rate FiO2 01/29/17 08:32 97.4 87 18 122/57 98 01/29/17 04:00 97.9 84 20 115/65 98 01/29/17 00:45 97.5 89 20 125/73 100 01/28/17 20:02 89 01/28/17 20:00 Room Air 01/28/17 20:00 98.1 79 18 142/80 96 01/28/17 16:04 97.7 84 18 134/82 99 01/28/17 12:10 97.8 85 20 128/78 93 I/O 01/28/17 01/28/17 01/28/17 01/29/17 01/29/17 01/29/17 07:00 15:00 23:00 07:00 15:00 23:00 Intake Total 240 ml 600 ml Balance 240 ml 600 ml Intake Oral 240 ml 600 ml # Voids 2 3 2 2 # Bowel Movements 1 0 1 Result Diagram: 01/25/17 1400 01/27/17 0633 Imaging Last Impressions Chest X-Ray 01/25/17 1356 Signed Impressions: Service Date/Time: Wednesday, January 25, 2017 14:05 - CONCLUSION: Enlargement of the cardiac silhouette. No acute pulmonary abnormality is identified. Mane Ramirez MD Lower Extremity Ultrasound 01/25/17 0000 Signed Impressions: Service Date/Time: Wednesday, January 25, 2017 16:17 - CONCLUSION: Greater saphenous vein thrombus in the right leg. No evidence of DVT in either leg. Mane Christianson MD Objective Remarks GENERAL: This is a well-nourished, well-developed patient, in no apparent distress. CARDIOVASCULAR: Regular rate and regular rhythm without murmurs, gallops, or rubs. RESPIRATORY: Clear to auscultation. Breath sounds equal bilaterally. No wheezes , rales, or rhonchi. GASTROINTESTINAL: Abdomen soft, non-tender, nondistended. Normal, active bowel sounds MUSCULOSKELETAL: Extremities with bilateral pedal edema NEURO: Alert & Oriented x4 to person, place, time, situation. Moves all ext x4 Procedures none Medications and IVs Current Medications Furosemide (Lasix Inj) 40 mg ONCE ONCE IV PUSH Last administered on 01/25/17 14:06; Start 01/25/17 at 14:00; Stop 01/25/17 at 14:01; Status DC Potassium Chloride (KCl) 30 meq ONCE ONCE PO Last administered on 01/25/17 15: 12; Start 01/25/17 at 15:00; Stop 01/25/17 at 15:01; Status DC Aspirin (Aspirin) 325 mg ONCE ONCE PO Last administered on 01/25/17 15:12; Start 01/25/17 at 15:00; Stop 01/25/17 at 15:01; Status DC Furosemide (Lasix Inj) 40 mg DAILY IV PUSH Last administered on 01/29/17 09:43 ; Start 01/26/17 at 09:00 Potassium Chloride (KCl) 40 meq ONCE ONCE PO Last administered on 01/25/17 20: 50; Start 01/25/17 at 19:00; Stop 01/25/17 at 19:01; Status DC Potassium Chloride (KCl) 20 meq DAILY PO Last administered on 01/29/17 09:43; Start 01/26/17 at 09:00 Lisinopril (Prinivil) 20 mg DAILY PO Last administered on 01/29/17 09:42; Start 01/26/17 at 09:00 Enalaprilat (Vasotec Inj) 1.25 mg Q8H PRN IV PUSH SBP> OR = 180, DBP> OR = 100 ; Start 01/25/17 at 15:30 Aspirin (Aspirin Chew) 81 mg DAILY CHEW ; Start 01/26/17 at 09:00; Stop 01/26/17 at 09:00; Status DC Carvedilol (Coreg) 25 mg BID PO Last administered on 01/29/17 09:42; Start 01/25 at 21:00 Aspirin (Ecotrin Ec) 81 mg DAILY PO Last administered on 01/29/17 09:42; Start 01/26/17 at 09:00 Enoxaparin Sodium (Lovenox Inj) 40 mg Q24H SQ Last administered on 01/28/17 16: 00; Start 01/25/17 at 16:00 Potassium Chloride (KCl) 40 meq ONCE ONCE PO Last administered on 01/26/17 06: 39; Start 01/26/17 at 05:15; Stop 01/26/17 at 05:16; Status DC Furosemide (Lasix Inj) 20 mg ONCE ONCE IV PUSH Last administered on 01/26/17 13:20; Start 01/26/17 at 14:00; Stop 01/26/17 at 14:01; Status DC Potassium Chloride (KCl) 30 meq ONCE ONCE PO Last administered on 01/26/17 12: 03; Start 01/26/17 at 12:00; Stop 01/26/17 at 12:01; Status DC Furosemide (Lasix Inj) 20 mg ONCE ONCE IV PUSH Last administered on 01/27/17 14:52; Start 01/27/17 at 14:00; Stop 01/27/17 at 14:01; Status DC Potassium Chloride (KCl) 30 meq ONCE ONCE PO Last administered on 01/27/17 11: 33; Start 01/27/17 at 10:00; Stop 01/27/17 at 10:01; Status DC A/P Assessment and Plan A/P - acute on chronic systolic CHF- echo with EF 25%- continue with IV lasix- continue lisinopril and coreg- will monitor the urine output and clinical response consult cardiology. venous doppler of the lower extremities negative for DVT. -minimal elevation of troponin- likely due to CHF- denies chest pain and no acute EKG changes continue aspirin. -hypertension; resumed lisinopril and coreg-vasotec as needed- will monitor and adjust the regimen as needed. -hypokalemia; replaced. -DVT prophylaxis with lovenox Discharge Planning echo with severely reduced systolic function- cardiology consulted. Luis Miguel Solorzano MD January 29, 2017 11:58
--- NOTE | 2017-01-29 14:47 | EC ---
Study Study Date:01/25/2017 STUDY CONCLUSIONS SUMMARY - Left ventricle: The cavity size was moderately dilated. Wall thickness was increased in a pattern of moderate LVH. There was concentric hypertrophy. Systolic function was severely reduced. The estimated ejection fraction was in the range of 25% to 30%. Diffuse hypokinesis. - Right ventricle: The cavity size was mildly dilated. - Pulmonary arteries: PA peak pressure: 63mm Hg (S). If LV function is below 40, please consider prescribing an ACEI or ARB or document rationale for non-use. PROCEDURE DATA STUDY STATUS: Elective. Procedure: Transthoracic echocardiography. Image quality was good. Scanning was performed from the parasternal, apical, and subcostal acoustic windows. Study completion: The patient tolerated the procedure well. Transthoracic echocardiography. M-mode, complete 2D, complete spectral Doppler, and color Doppler. Height: Height: 65in. Weight: Weight: 329.3lb. Body mass index: BMI: 54.9kg/m^2. Body surface area: BSA: 2.45m^2. Patient status: Inpatient. CARDIAC ANATOMY LEFT VENTRICLE: The cavity size was moderately dilated. Wall thickness was increased in a pattern of moderate LVH. There was concentric hypertrophy. Systolic function was severely reduced. The estimated ejection fraction was in the range of 25% to 30%. Diffuse hypokinesis. AORTIC VALVE: The valve appears to be grossly normal. Doppler: There was no stenosis. No significant regurgitation. Valve area: 2.09cm^2 (Vmax). Indexed valve area: 0.85cm^2/m^2 (Vmax). MITRAL VALVE: The valve appears to be grossly normal. Doppler: There was no evidence for stenosis. Trace regurgitation. LEFT ATRIUM: The atrium was mildly dilated. RIGHT VENTRICLE: The cavity size was mildly dilated. PULMONIC VALVE: Not visualized. Doppler: There was no evidence for stenosis. Trace regurgitation. TRICUSPID VALVE: The valve appears to be grossly normal. Doppler: There was no evidence for stenosis. Trace to mild regurgitation. PERICARDIUM: There was no pericardial effusion. Patient weight: 329.3lb _Ejection fraction:_ 65-75% _Fractional shortening:_ 32% up to 5Kg 5-11.5Kg 11.6-22.9Kg 23-45Kg 45-57Kg Aortic Root 7-13 <17 13-22 17-27 17-27 LA diam 6-13 <23 24-38 33-47 37-40 RVID 10-17 7-15 7-15 7-18 8-17 LVIDd 12-22 <32 24-38 33-47 37-40 LVPW 2-4 3-6 5-7 6-8 7-8 IVS 2-4 3-6 5-7 6-8 7-8 BASIC MEASUREMENTS ADULT NORMAL Left ventricle LV internal dimension, ED, chordal *70.6 mm 43-52 level, PLAX LV internal dimension, ES, chordal *62.6 mm 23-38 level, PLAX Fractional shortening, chordal level, *11 % >29 PLAX LV posterior wall thickness, ED 13.1 mm IVS/LVPW ratio, ED 1.02 <1.3 Ventricular septum Septal thickness, ED 13.3 mm Aortic valve Leaflet separation 20 mm 15-26 Right ventricle RV internal dimension, ED, PLAX 32.5 mm 19-38 BASIC MEASUREMENTS ADULT NORMAL Aortic valve Leaflet separation 20 mm 15-26 Aorta Root diameter, ED 30 mm 20-37 Left atrium Anterior-posterior dimension, ES *50 mm 19-40 Anterior-posterior dimension index, ES 2.04 cm/m^2 <2.2 LA/aortic root ratio 1.67 DOPPLER MEASUREMENTS ADULT NORMAL Main pulmonary artery Pressure, S *63 mm Hg =30 Pressure, ED 33 mm Hg Aortic valve Peak velocity, S 98.9 cm/s Valve area, Vmax 2.09 cm^2 Valve area index, Vmax 0.85 cm^2/m^2 Mitral valve Maximal regurgitant velocity 409 cm/s Tricuspid valve Regurgitant peak velocity 377 cm/s Peak RV-RA gradient, S 57 mm Hg Maximal regurgitant velocity 377 cm/s Systemic veins Estimated CVP 10 mm Hg Right ventricle RV pressure, S *67 mm Hg <30 Pulmonic valve Peak velocity, S 97.7 cm/s Regurgitant velocity, ED 238 cm/s LEGEND: Mean values are shown as u=mean value. Asterisk (*) de oliveira values outside specified normal range. Prepared and signed by Beau Medel [id number]
[2017-01-29] MEDS: ENOXAPARIN SODIUM 40 MG/0.4 ML SYRINGE SQ SCH (17:54)
[2017-01-30] VITALS (10 sets, daily range): BP systolic 107–140; BP diastolic 65–88; PULSE 77–96; RESP 16–18; TEMP 97.2–98.9; O2SAT 91–100
--- NOTE | 2017-01-30 07:29 | PD.CARD.PN ---
Subjective Subjective Remarks Pt without complaints. He reports he is not drinking, but is eating ice Objective Medications Current Medications Medications (Trade) Dose Ordered Sig/Michel Route Start Time Stop Time Status Last Admin (Lasix Inj) 40 mg DAILY IV PUSH 01/26/17 09:00 01/29/17 09:43 (KCl) 20 meq DAILY PO 01/26/17 09:00 01/29/17 09:43 (Prinivil) 20 mg DAILY PO 01/26/17 09:00 01/29/17 09:42 (Vasotec Inj) 1.25 mg Q8H PRN IV PUSH 01/25/17 15:30 (Coreg) 25 mg BID PO 01/25/17 21:00 01/29/17 20:28 (Ecotrin Ec) 81 mg DAILY PO 01/26/17 09:00 01/29/17 09:42 (Lovenox Inj) 40 mg Q24H SQ 01/25/17 16:00 01/29/17 17:54 Vital Signs / I&O Vital Signs Date Time Temp Pulse Resp B/P Pulse Ox O2 Delivery O2 Flow Rate FiO2 01/30/17 04:00 98.4 88 18 125/80 95 01/30/17 00:00 98.9 80 18 121/65 94 01/29/17 20:58 Nasal Cannula 2.00 01/29/17 20:00 98.4 90 18 130/92 100 01/29/17 19:35 88 01/29/17 16:02 97.6 83 21 120/76 98 01/29/17 12:09 98.0 85 21 120/76 98 01/29/17 08:32 97.4 87 18 122/57 98 01/29/17 08:00 85 01/29/17 08:00 96 Room Air I/O 01/29/17 01/29/17 01/29/17 01/30/17 01/30/17 01/30/17 07:00 15:00 23:00 07:00 15:00 23:00 Intake Total 720 ml 480 ml 480 ml Output Total 1200 ml 200 ml Balance -480 ml 280 ml 480 ml Intake Oral 720 ml 480 ml 480 ml Output Urine Total 1200 ml 200 ml # Voids 2 2 # Bowel Movements 0 0 1 Physical Exam GENERAL: Well developed, well nourished. No acute distress. HEENT: Jugular venous pressure is normal. CHEST: Lungs clear to auscultation bilaterally. Unlabored respiratory effort. CARDIAC: Regular rate and rhythm without S3, S4, or murmur. ABDOMEN: Soft, nontender, no hepatosplenomegaly. Bowel sounds present. EXTREMITIES: No clubbing, cyanosis, 1-2+ edema. Assessment and Plan Assessment and Plan Systolic CHF- EF 25%; pt not compliant and gaining weight - fluid and sodium cap - increase lasix -add aldactone HTN- controlled Estefania Castaneda MD January 30, 2017 07:29
--- NOTE | 2017-01-30 07:56 | MB ---
cc: TAHIR CASILLAS MD DATE OF CONSULTATION 01/29/2017 REASON FOR CONSULTATION CHF. HISTORY OF PRESENT ILLNESS Mr. Mchugh is a 51-year-old man who does have a longstanding history of a nonischemic cardiomyopathy dating back to 2008. He reports he had an ischemia workup at that time. He has since followed with several different cardiologists. After losing his disability insurance he was not able to follow up and has not been on medications. The patient does report progressive shortness of breath and edema. PAST MEDICAL HISTORY Significant for - Hypertension. CHF. OUTPATIENT MEDICATIONS 1. Aspirin. 2. Lisinopril. 3. Hydrochlorothiazide. 4. Lasix. 5. Carvedilol. ALLERGIES No known drug allergies. REVIEW OF SYSTEMS The patient does complain of leg wounds. Other than this and what is some mentioned in the HPI, all 12 systems are negative. FAMILY HISTORY Noncontributory. PHYSICAL EXAMINATION Vital Signs: 97.6, 83, 21, 120/76. IN GENERAL: He is a morbidly obese man who is in no apparent distress. NECK: Free from JVD. LUNGS: Decreased at the bases. CARDIOVASCULAR EXAMINATION: He has a normal S1 and S2. I do not appreciate any murmurs, rubs or gallops. ABDOMEN: Soft. EXTREMITIES: Mild edema. ECHOCARDIOGRAM EF of 25-30%. There is concentric LVH and moderate LV dilation. LAB VALUES Significant for initial potassium of 2.9. He has serial troponins of 0.06, plus 0.09, plus 0.07 with a BNP of 579. IMPRESSIONS Acute on chronic systolic failure - the patient does have a history of noncompliance and has not been able to get medication. I do agree with starting him back on Lasix, beta sara and CLOVIS inhibitor. Fluid and sodium restrictions were discussed. HTN- Noncompliance Tahir Casillas M.D. LEYLA/ALIA /7:27 AM /7:39 AM MAURISIO
[2017-01-30] MEDS: ASPIRIN EC 81 MG TABEC PO SCH (09:00)
[2017-01-30] MEDS: POTASSIUM CHLORIDE 20 MEQ CONTROLLED RELEASE TAB PO SCH ×2 (09:00→21:00)
[2017-01-30] MEDS ORDERED: SPIRONOLACTONE 25 MG TAB PO SCH (09:00)
[2017-01-30] MEDS: LISINOPRIL 20 MG TAB PO SCH (09:00)
[2017-01-30] MEDS: CARVEDILOL 12.5 MG TAB PO SCH ×2 (09:00→21:18)
[2017-01-30] MEDS: FUROSEMIDE 40 MG/4 ML VIAL IV PUSH SCH ×2 (09:00→21:16)
--- NOTE | 2017-01-30 10:24 | HHI.PR ---
Subjective Remarks in no acute distress. leg edema improved lightly. no sob. no new complaints. Objective Vitals Vital Signs Date Time Temp Pulse Resp B/P Pulse Ox O2 Delivery O2 Flow Rate FiO2 01/30/17 08:00 97.2 91 16 140/88 100 01/30/17 04:00 98.4 88 18 125/80 95 01/30/17 00:00 98.9 80 18 121/65 94 01/29/17 20:58 Nasal Cannula 2.00 01/29/17 20:00 98.4 90 18 130/92 100 01/29/17 19:35 88 01/29/17 16:02 97.6 83 21 120/76 98 01/29/17 12:09 98.0 85 21 120/76 98 I/O 01/29/17 01/29/17 01/29/17 01/30/17 01/30/17 01/30/17 07:00 15:00 23:00 07:00 15:00 23:00 Intake Total 720 ml 480 ml 480 ml Output Total 1200 ml 200 ml Balance -480 ml 280 ml 480 ml Intake Oral 720 ml 480 ml 480 ml Output Urine Total 1200 ml 200 ml # Voids 2 2 # Bowel Movements 0 0 1 Result Diagram: 01/27/17 0633 Imaging Last Impressions Chest X-Ray 01/25/17 1356 Signed Impressions: Service Date/Time: Wednesday, January 25, 2017 14:05 - CONCLUSION: Enlargement of the cardiac silhouette. No acute pulmonary abnormality is identified. Mane Ramirez MD Lower Extremity Ultrasound 01/25/17 0000 Signed Impressions: Service Date/Time: Wednesday, January 25, 2017 16:17 - CONCLUSION: Greater saphenous vein thrombus in the right leg. No evidence of DVT in either leg. Mane Christianson MD Objective Remarks GENERAL: This is a well-nourished, well-developed patient, in no apparent distress. CARDIOVASCULAR: Regular rate and regular rhythm without murmurs, gallops, or rubs. RESPIRATORY: Clear to auscultation. Breath sounds equal bilaterally. No wheezes , rales, or rhonchi. GASTROINTESTINAL: Abdomen soft, non-tender, nondistended. Normal, active bowel sounds MUSCULOSKELETAL: Extremities with bilateral pedal edema NEURO: Alert & Oriented x4 to person, place, time, situation. Moves all ext x4 Procedures none Medications and IVs Current Medications Furosemide (Lasix Inj) 40 mg ONCE ONCE IV PUSH Last administered on 01/25/17 14:06; Start 01/25/17 at 14:00; Stop 01/25/17 at 14:01; Status DC Potassium Chloride (KCl) 30 meq ONCE ONCE PO Last administered on 01/25/17 15: 12; Start 01/25/17 at 15:00; Stop 01/25/17 at 15:01; Status DC Aspirin (Aspirin) 325 mg ONCE ONCE PO Last administered on 01/25/17 15:12; Start 01/25/17 at 15:00; Stop 01/25/17 at 15:01; Status DC Furosemide (Lasix Inj) 40 mg DAILY IV PUSH Last administered on 01/29/17 09:43 ; Start 01/26/17 at 09:00; Stop 01/30/17 at 07:32; Status DC Potassium Chloride (KCl) 40 meq ONCE ONCE PO Last administered on 01/25/17 20: 50; Start 01/25/17 at 19:00; Stop 01/25/17 at 19:01; Status DC Potassium Chloride (KCl) 20 meq DAILY PO Last administered on 01/29/17 09:43; Start 01/26/17 at 09:00; Stop 01/30/17 at 07:32; Status DC Lisinopril (Prinivil) 20 mg DAILY PO Last administered on 01/30/17 09:00; Start 01/26/17 at 09:00 Enalaprilat (Vasotec Inj) 1.25 mg Q8H PRN IV PUSH SBP> OR = 180, DBP> OR = 100 ; Start 01/25/17 at 15:30 Aspirin (Aspirin Chew) 81 mg DAILY CHEW ; Start 01/26/17 at 09:00; Stop 01/26/17 at 09:00; Status DC Carvedilol (Coreg) 25 mg BID PO Last administered on 01/30/17 09:00; Start 01/25/17 at 21:00 Aspirin (Ecotrin Ec) 81 mg DAILY PO Last administered on 01/30/17 09:00; Start 01/26/17 at 09:00 Enoxaparin Sodium (Lovenox Inj) 40 mg Q24H SQ Last administered on 01/29/17 17: 54; Start 01/25/17 at 16:00 Potassium Chloride (KCl) 40 meq ONCE ONCE PO Last administered on 01/26/17 06: 39; Start 01/26/17 at 05:15; Stop 01/26/17 at 05:16; Status DC Furosemide (Lasix Inj) 20 mg ONCE ONCE IV PUSH Last administered on 01/26/17 13:20; Start 01/26/17 at 14:00; Stop 01/26/17 at 14:01; Status DC Potassium Chloride (KCl) 30 meq ONCE ONCE PO Last administered on 01/26/17 12: 03; Start 01/26/17 at 12:00; Stop 01/26/17 at 12:01; Status DC Furosemide (Lasix Inj) 20 mg ONCE ONCE IV PUSH Last administered on 01/27/17 14:52; Start 01/27/17 at 14:00; Stop 01/27/17 at 14:01; Status DC Potassium Chloride (KCl) 30 meq ONCE ONCE PO Last administered on 01/27/17 11: 33; Start 01/27/17 at 10:00; Stop 01/27/17 at 10:01; Status DC Furosemide (Lasix Inj) 40 mg BID IV PUSH Last administered on 01/30/17 09:00; Start 01/30/17 at 09:00 Potassium Chloride (KCl) 20 meq BID PO Last administered on 01/30/17 09:00; Start 01/30/17 at 09:00 Spironolactone (Aldactone) 25 mg DAILY PO Last administered on 01/30/17 09:00 ; Start 01/30/17 at 09:00 A/P Assessment and Plan A/P - acute on chronic systolic CHF- echo with EF 25%- continue with IV lasix- aldactone was added- continue lisinopril and coreg- will monitor the urine output and clinical response cardiology evaluation appreciated. venous doppler of the lower extremities negative for DVT. -minimal elevation of troponin- likely due to CHF- denies chest pain and no acute EKG changes continue aspirin. -hypertension; resumed lisinopril and coreg-vasotec as needed- will monitor and adjust the regimen as needed. -hypokalemia; replaced. -DVT prophylaxis with loveLuis Miguel Warner MD January 30, 2017 10:24
[2017-01-30 15:09] LABS: POTASSIUM 5.6 MEQ/L (3.5-5.1)
[2017-01-30] MEDS: ENOXAPARIN SODIUM 40 MG/0.4 ML SYRINGE SQ SCH (17:06)
[2017-01-31] VITALS (9 sets, daily range): BP systolic 114–137; BP diastolic 69–88; PULSE 80–90; RESP 17–24; TEMP 97.4–98.9; O2SAT 93–100
--- NOTE | 2017-01-31 07:27 | PD.CARD.PN ---
Subjective Subjective Remarks Pt reports breathing a little better Objective Medications Current Medications Medications (Trade) Dose Ordered Sig/Michel Route Start Time Stop Time Status Last Admin (Prinivil) 20 mg DAILY PO 01/26/17 09:00 01/30/17 09:00 (Vasotec Inj) 1.25 mg Q8H PRN IV PUSH 01/25/17 15:30 (Coreg) 25 mg BID PO 01/25/17 21:00 01/30/17 21:18 (Ecotrin Ec) 81 mg DAILY PO 01/26/17 09:00 01/30/17 09:00 (Lovenox Inj) 40 mg Q24H SQ 01/25/17 16:00 01/30/17 17:06 (Lasix Inj) 40 mg BID IV PUSH 01/30/17 09:00 01/30/17 21:16 (KCl) 20 meq BID PO 01/30/17 09:00 01/30/17 09:00 (Aldactone) 25 mg DAILY PO 01/30/17 09:00 01/30/17 09:00 Vital Signs / I&O Vital Signs Date Time Temp Pulse Resp B/P Pulse Ox O2 Delivery O2 Flow Rate FiO2 01/31/17 04:47 97.4 83 24 137/88 93 01/31/17 04:00 Nasal Cannula 2.00 01/31/17 00:00 Nasal Cannula 2.00 01/30/17 23:30 97.4 88 18 124/81 91 01/30/17 21:08 97.8 82 18 107/68 98 01/30/17 20:00 Room Air 01/30/17 20:00 96 01/30/17 17:21 100 Nasal Cannula 2.00 01/30/17 16:00 97.5 86 17 118/78 100 01/30/17 12:00 98.4 77 16 108/75 97 01/30/17 11:33 98 Nasal Cannula 2.00 01/30/17 08:00 90 01/30/17 08:00 97.2 91 16 140/88 100 01/30/17 08:00 96 Nasal Cannula 2.00 I/O 01/30/17 01/30/17 01/30/17 01/31/17 01/31/17 01/31/17 07:00 15:00 23:00 07:00 15:00 23:00 Intake Total 480 ml 240 ml 440 ml 200 ml Output Total 1300 ml 250 ml 1000 ml Balance 480 ml -1060 ml 190 ml -800 ml Intake Oral 480 ml 240 ml 440 ml 200 ml Output Urine Total 1300 ml 250 ml 1000 ml # Voids 2 # Bowel Movements 1 1 1 0 Physical Exam GENERAL: Well developed, well nourished. No acute distress. HEENT: Jugular venous pressure is normal. CHEST: Lungs clear to auscultation bilaterally. Unlabored respiratory effort. CARDIAC: Regular rate and rhythm without S3, S4, or murmur. ABDOMEN: Soft, nontender, no hepatosplenomegaly. Bowel sounds present. EXTREMITIES: No clubbing, cyanosis, 1-2+ edema. Laboratory Laboratory Tests Test 01/30/17 13:59 Sodium Level 139 MEQ/L Potassium Level 5.6 MEQ/L Chloride Level 101 MEQ/L Carbon Dioxide Level 31.0 MEQ/L Anion Gap 7 MEQ/L Blood Urea Nitrogen 18 MG/DL Creatinine 1.04 MG/DL Estimat Glomerular Filtration 91 ML/MIN Rate Random Glucose 110 MG/DL Calcium Level 9.1 MG/DL Assessment and Plan Assessment and Plan Systolic CHF- EF 25%; pt not compliant and gaining weight - continue fluid and sodium cap, I/O now favorable yesterday - change lasix to PO after am dose, add metolazone (for a few days) -stop aldactone (hold potassium)-secondary to hyperkalemia Hyperkalemia- recheck today HTN- controlled Estefania Castaneda MD January 31, 2017 07:27
[2017-01-31] MEDS: LISINOPRIL 20 MG TAB PO SCH (08:33)
[2017-01-31] MEDS: ASPIRIN EC 81 MG TABEC PO SCH (08:33)
[2017-01-31] MEDS: CARVEDILOL 12.5 MG TAB PO SCH ×2 (08:33→21:36)
[2017-01-31] MEDS: FUROSEMIDE 40 MG/4 ML VIAL IV PUSH SCH (08:33)
[2017-01-31] MEDS: METOLAZONE 5 MG TAB PO SCH (08:33)
--- NOTE | 2017-01-31 09:10 | HHI.PR ---
Subjective Remarks resting comfortably with no distress. no sob or chest pain. no new complaints. Objective Vitals Vital Signs Date Time Temp Pulse Resp B/P Pulse Ox O2 Delivery O2 Flow Rate FiO2 01/31/17 04:47 97.4 83 24 137/88 93 01/31/17 04:00 Nasal Cannula 2.00 01/31/17 00:00 Nasal Cannula 2.00 01/30/17 23:30 97.4 88 18 124/81 91 01/30/17 21:08 97.8 82 18 107/68 98 01/30/17 20:00 Room Air 01/30/17 20:00 96 01/30/17 17:21 100 Nasal Cannula 2.00 01/30/17 16:00 97.5 86 17 118/78 100 01/30/17 12:00 98.4 77 16 108/75 97 01/30/17 11:33 98 Nasal Cannula 2.00 I/O 01/30/17 01/30/17 01/30/17 01/31/17 01/31/17 01/31/17 07:00 15:00 23:00 07:00 15:00 23:00 Intake Total 480 ml 240 ml 440 ml 200 ml Output Total 1300 ml 250 ml 1000 ml Balance 480 ml -1060 ml 190 ml -800 ml Intake Oral 480 ml 240 ml 440 ml 200 ml Output Urine Total 1300 ml 250 ml 1000 ml # Voids 2 # Bowel Movements 1 1 1 0 Result Diagram: 01/30/17 1359 Imaging Last Impressions Chest X-Ray 01/25/17 1356 Signed Impressions: Service Date/Time: Wednesday, January 25, 2017 14:05 - CONCLUSION: Enlargement of the cardiac silhouette. No acute pulmonary abnormality is identified. Mane Ramirez MD Lower Extremity Ultrasound 01/25/17 0000 Signed Impressions: Service Date/Time: Wednesday, January 25, 2017 16:17 - CONCLUSION: Greater saphenous vein thrombus in the right leg. No evidence of DVT in either leg. Mane Christianson MD Objective Remarks GENERAL: This is a well-nourished, well-developed patient, in no apparent distress. CARDIOVASCULAR: Regular rate and regular rhythm without murmurs, gallops, or rubs. RESPIRATORY: Clear to auscultation. Breath sounds equal bilaterally. No wheezes , rales, or rhonchi. GASTROINTESTINAL: Abdomen soft, non-tender, nondistended. Normal, active bowel sounds MUSCULOSKELETAL: Extremities with bilateral pedal edema NEURO: Alert & Oriented x4 to person, place, time, situation. Moves all ext x4 Procedures none Medications and IVs Current Medications Furosemide (Lasix Inj) 40 mg ONCE ONCE IV PUSH Last administered on 01/25/17 14:06; Start 01/25/17 at 14:00; Stop 01/25/17 at 14:01; Status DC Potassium Chloride (KCl) 30 meq ONCE ONCE PO Last administered on 01/25/17 15: 12; Start 01/25/17 at 15:00; Stop 01/25/17 at 15:01; Status DC Aspirin (Aspirin) 325 mg ONCE ONCE PO Last administered on 01/25/17 15:12; Start 01/25/17 at 15:00; Stop 01/25/17 at 15:01; Status DC Furosemide (Lasix Inj) 40 mg DAILY IV PUSH Last administered on 01/29/17 09:43 ; Start 01/26/17 at 09:00; Stop 01/30/17 at 07:32; Status DC Potassium Chloride (KCl) 40 meq ONCE ONCE PO Last administered on 01/25/17 20: 50; Start 01/25/17 at 19:00; Stop 01/25/17 at 19:01; Status DC Potassium Chloride (KCl) 20 meq DAILY PO Last administered on 01/29/17 09:43; Start 01/26/17 at 09:00; Stop 01/30/17 at 07:32; Status DC Lisinopril (Prinivil) 20 mg DAILY PO Last administered on 01/31/17 08:33; Start 01/26/17 at 09:00 Enalaprilat (Vasotec Inj) 1.25 mg Q8H PRN IV PUSH SBP> OR = 180, DBP> OR = 100 ; Start 01/25/17 at 15:30 Aspirin (Aspirin Chew) 81 mg DAILY CHEW ; Start 01/26/17 at 09:00; Stop 01/26/17 at 09:00; Status DC Carvedilol (Coreg) 25 mg BID PO Last administered on 01/31/17 08:33; Start 01/25/17 at 21:00 Aspirin (Ecotrin Ec) 81 mg DAILY PO Last administered on 01/31/17 08:33; Start 01/26/17 at 09:00 Enoxaparin Sodium (Lovenox Inj) 40 mg Q24H SQ Last administered on 01/30/17 17 :06; Start 01/25/17 at 16:00 Potassium Chloride (KCl) 40 meq ONCE ONCE PO Last administered on 01/26/17 06: 39; Start 01/26/17 at 05:15; Stop 01/26/17 at 05:16; Status DC Furosemide (Lasix Inj) 20 mg ONCE ONCE IV PUSH Last administered on 01/26/17 13:20; Start 01/26/17 at 14:00; Stop 01/26/17 at 14:01; Status DC Potassium Chloride (KCl) 30 meq ONCE ONCE PO Last administered on 01/26/17 12: 03; Start 01/26/17 at 12:00; Stop 01/26/17 at 12:01; Status DC Furosemide (Lasix Inj) 20 mg ONCE ONCE IV PUSH Last administered on 01/27/17 14:52; Start 01/27/17 at 14:00; Stop 01/27/17 at 14:01; Status DC Potassium Chloride (KCl) 30 meq ONCE ONCE PO Last administered on 01/27/17 11: 33; Start 01/27/17 at 10:00; Stop 01/27/17 at 10:01; Status DC Furosemide (Lasix Inj) 40 mg BID IV PUSH Last administered on 01/31/17 08:33; Start 01/30/17 at 09:00; Stop 01/31/17 at 12:00 Potassium Chloride (KCl) 20 meq BID PO Last administered on 01/30/17 09:00; Start 01/30/17 at 09:00; Status Hold Spironolactone (Aldactone) 25 mg DAILY PO Last administered on 01/30/17 09:00 ; Start 01/30/17 at 09:00; Stop 01/31/17 at 07:31; Status DC Metolazone (Zaroxolyn) 5 mg DAILY PO Last administered on 01/31/17 08:33; Start 01/31/17 at 09:00 Furosemide (Lasix) 40 mg BID@09,18 PO ; Start 01/31/17 at 18:00 A/P Assessment and Plan A/P - acute on chronic systolic CHF- echo with EF 25%- continue with diuretics; will lasix will be switched to po and metolazone was added- aldactone was dc'ed due to hyperkalemia- continue lisinopril and coreg- will monitor the urine output and clinical response cardiology evaluation appreciated. venous doppler of the lower extremities negative for DVT. -minimal elevation of troponin- likely due to CHF- denies chest pain and no acute EKG changes continue aspirin. -hypertension; resumed lisinopril and coreg-vasotec as needed- will monitor and adjust the regimen as needed. -hyperkalemia- repeat the level today- aldactone was dc'ed as noted above. -DVT prophylaxis with lovenox Discharge Planning possible dc home tomorrow if stable. d/w . Luis Miguel Solorzano MD January 31, 2017 09:10
[2017-01-31] MEDS ORDERED: METO5TAB3 PO (09:13)
[2017-01-31] MEDS ORDERED: LISI-515 PO (09:13)
--- NOTE | 2017-01-31 09:13 | HHI.DCPOC ---
Discharge Care Plan Diagnosis: (1) Acute exacerbation of CHF (congestive heart failure) Your Health Problems Are: Leg Swelling Fluid/Lung Overload Shortness of Breath Goals to Promote Your Health * To prevent worsening of your condition and complications * To maintain your health at the optimal level Directions to Meet Your Goals Take your medications as prescribed Follow your dietary instruction Follow activity as directed Keep your appointments as scheduled Take your immunizations and boosters as scheduled If your symptoms worsen call your PCP, if no PCP go to Urgent Care Center or Emergency Room Smoking is Dangerous to Your Health. Avoid second hand smoke Call the 24-hour hour crisis hotline for domestic abuse at Luis Miguel Solorzano MD January 31, 2017 09:13
[2017-01-31 10:25] LABS: BICARBONATE 30.7 MEQ/L (21.0-32.0); POTASSIUM 3.8 MEQ/L (3.5-5.1)
[2017-01-31] MEDS: ENOXAPARIN SODIUM 40 MG/0.4 ML SYRINGE SQ SCH (16:20)
[2017-01-31] MEDS: FUROSEMIDE 40 MG TAB PO SCH (16:20)
[2017-02-01 05:03] VITALS: BP 134/76; PULSE 96; RESP 18; TEMP 97.8; O2SAT 94
[2017-02-01 08:00] VITALS: BP 127/72; PULSE 76; PULSE 88; RESP 18; TEMP 97.8; O2SAT 91
[2017-02-01 08:37] VITALS: O2SAT 98
--- NOTE | 2017-02-01 08:44 | PD.CARD.PN ---
Subjective Subjective Remarks Pt without complaints Objective Medications Current Medications Medications (Trade) Dose Ordered Sig/Michel Route Start Time Stop Time Status Last Admin (Prinivil) 20 mg DAILY PO 01/26/17 09:00 01/31/17 08:33 (Vasotec Inj) 1.25 mg Q8H PRN IV PUSH 01/25/17 15:30 (Coreg) 25 mg BID PO 01/25/17 21:00 01/31/17 21:36 (Ecotrin Ec) 81 mg DAILY PO 01/26/17 09:00 01/31/17 08:33 (Lovenox Inj) 40 mg Q24H SQ 01/25/17 16:00 01/31/17 16:20 (KCl) 20 meq BID PO 01/30/17 09:00 Hold 01/30/17 09:00 (Zaroxolyn) 5 mg DAILY PO 01/31/17 09:00 01/31/17 08:33 (Lasix) 40 mg BID@09,18 PO 01/31/17 18:00 01/31/17 16:20 Vital Signs / I&O Vital Signs Date Time Temp Pulse Resp B/P Pulse Ox O2 Delivery O2 Flow Rate FiO2 02/01/17 08:00 97.8 88 18 127/72 91 02/01/17 05:03 97.8 96 18 134/76 94 02/01/17 04:00 Nasal Cannula 2.00 02/01/17 00:00 Nasal Cannula 2.00 01/31/17 23:25 98.1 90 18 120/70 94 01/31/17 20:00 88 01/31/17 20:00 Room Air 01/31/17 19:32 98.9 87 18 132/84 96 01/31/17 16:00 97.9 80 18 114/71 98 01/31/17 12:00 98.1 80 18 121/69 97 01/31/17 08:43 Nasal Cannula 2.00 01/31/17 08:43 83 I/O 01/31/17 01/31/17 01/31/17 02/01/17 02/01/17 02/01/17 07:00 15:00 23:00 07:00 15:00 23:00 Intake Total 200 ml 440 ml 100 ml Output Total 1000 ml 2400 ml 400 ml 800 ml Balance -800 ml -2400 ml 40 ml -700 ml Intake Oral 200 ml 440 ml 100 ml Output Urine Total 1000 ml 2400 ml 400 ml 800 ml # Bowel Movements 0 0 0 Physical Exam GENERAL: Well developed, well nourished. No acute distress. HEENT: Jugular venous pressure is normal. CHEST: Lungs clear to auscultation bilaterally. Unlabored respiratory effort. CARDIAC: Regular rate and rhythm without S3, S4, or murmur. ABDOMEN: Soft, nontender, no hepatosplenomegaly. Bowel sounds present. EXTREMITIES: No clubbing, cyanosis Laboratory Laboratory Tests Test 01/31/17 08:51 Sodium Level 141 MEQ/L Potassium Level 3.8 MEQ/L Chloride Level 103 MEQ/L Carbon Dioxide Level 30.7 MEQ/L Anion Gap 7 MEQ/L Blood Urea Nitrogen 18 MG/DL Creatinine 1.03 MG/DL Estimat Glomerular Filtration 92 ML/MIN Rate Random Glucose 79 MG/DL Calcium Level 9.3 MG/DL Assessment and Plan Assessment and Plan Systolic CHF- EF 25%; improved - continue fluid and sodium cap, I/O remains favorable - good on lasix PO; metolazone x3 more days - pt does understand he is at high risk for sudden with the low EF he is not a candidate for ICD at this time secondary to noncompliance and needs at least 3 months on optimal meds Hyperkalemia- normal yesterday, today pending -restart potassium HTN- controlled Dispo- reasonable for d/c pending labs Estefania Castaneda MD February 01, 2017 8:44 am
[2017-02-01] MEDS ORDERED: POTASSIUM CHLORIDE 20 MEQ CONTROLLED RELEASE TAB PO SCH (09:00)
[2017-02-01] MEDS: CARVEDILOL 12.5 MG TAB PO SCH (09:24)
[2017-02-01] MEDS: FUROSEMIDE 40 MG TAB PO SCH (09:25)
[2017-02-01] MEDS: METOLAZONE 5 MG TAB PO SCH (09:25)
[2017-02-01] MEDS: ASPIRIN EC 81 MG TABEC PO SCH (09:25)
[2017-02-01] MEDS: LISINOPRIL 20 MG TAB PO SCH (09:25)
[2017-02-01 10:39] LABS: BICARBONATE 36.6 MEQ/L (21.0-32.0); POTASSIUM 3.7 MEQ/L (3.5-5.1)
--- NOTE | 2017-02-01 11:54 | HHI.PR ---
Subjective Remarks resting comfortably with no distress. no sob or chest pain. no new complaints. Objective Vitals Vital Signs Date Time Temp Pulse Resp B/P Pulse Ox O2 Delivery O2 Flow Rate FiO2 02/01/17 08:37 98 Nasal Cannula 2.00 02/01/17 08:00 Nasal Cannula 2.00 02/01/17 08:00 76 02/01/17 08:00 97.8 88 18 127/72 91 02/01/17 05:03 97.8 96 18 134/76 94 02/01/17 04:00 Nasal Cannula 2.00 02/01/17 00:00 Nasal Cannula 2.00 01/31/17 23:25 98.1 90 18 120/70 94 01/31/17 20:00 88 01/31/17 20:00 Room Air 01/31/17 19:32 98.9 87 18 132/84 96 01/31/17 16:00 97.9 80 18 114/71 98 01/31/17 12:00 98.1 80 18 121/69 97 I/O 01/31/17 01/31/17 01/31/17 02/01/17 02/01/17 02/01/17 07:00 15:00 23:00 07:00 15:00 23:00 Intake Total 200 ml 440 ml 100 ml Output Total 1000 ml 2400 ml 400 ml 800 ml Balance -800 ml -2400 ml 40 ml -700 ml Intake Oral 200 ml 440 ml 100 ml Output Urine Total 1000 ml 2400 ml 400 ml 800 ml # Bowel Movements 0 0 0 Result Diagram: 02/01/17 0836 Imaging Last Impressions Chest X-Ray 01/25/17 1356 Signed Impressions: Service Date/Time: Wednesday, January 25, 2017 14:05 - CONCLUSION: Enlargement of the cardiac silhouette. No acute pulmonary abnormality is identified. Mane Ramirez MD Lower Extremity Ultrasound 01/25/17 0000 Signed Impressions: Service Date/Time: Wednesday, January 25, 2017 16:17 - CONCLUSION: Greater saphenous vein thrombus in the right leg. No evidence of DVT in either leg. Mane Christianson MD Objective Remarks GENERAL: This is a well-nourished, well-developed patient, in no apparent distress. CARDIOVASCULAR: Regular rate and regular rhythm without murmurs, gallops, or rubs. RESPIRATORY: Clear to auscultation. Breath sounds equal bilaterally. No wheezes , rales, or rhonchi. GASTROINTESTINAL: Abdomen soft, non-tender, nondistended. Normal, active bowel sounds MUSCULOSKELETAL: Extremities with bilateral pedal edema NEURO: Alert & Oriented x4 to person, place, time, situation. Moves all ext x4 Procedures none Medications and IVs Current Medications Furosemide (Lasix Inj) 40 mg ONCE ONCE IV PUSH Last administered on 01/25/17 14:06; Start 01/25/17 at 14:00; Stop 01/25/17 at 14:01; Status DC Potassium Chloride (KCl) 30 meq ONCE ONCE PO Last administered on 01/25/17 15: 12; Start 01/25/17 at 15:00; Stop 01/25/17 at 15:01; Status DC Aspirin (Aspirin) 325 mg ONCE ONCE PO Last administered on 01/25/17 15:12; Start 01/25/17 at 15:00; Stop 01/25/17 at 15:01; Status DC Furosemide (Lasix Inj) 40 mg DAILY IV PUSH Last administered on 01/29/17 09:43 ; Start 01/26/17 at 09:00; Stop 01/30/17 at 07:32; Status DC Potassium Chloride (KCl) 40 meq ONCE ONCE PO Last administered on 01/25/17 20: 50; Start 01/25/17 at 19:00; Stop 01/25/17 at 19:01; Status DC Potassium Chloride (KCl) 20 meq DAILY PO Last administered on 01/29/17 09:43; Start 01/26/17 at 09:00; Stop 01/30/17 at 07:32; Status DC Lisinopril (Prinivil) 20 mg DAILY PO Last administered on 02/01/17 09:25; Start 01/26/17 at 09:00 Enalaprilat (Vasotec Inj) 1.25 mg Q8H PRN IV PUSH SBP> OR = 180, DBP> OR = 100 ; Start 01/25/17 at 15:30 Aspirin (Aspirin Chew) 81 mg DAILY CHEW ; Start 01/26/17 at 09:00; Stop 01/26/17 at 09:00; Status DC Carvedilol (Coreg) 25 mg BID PO Last administered on 02/01/17 09:24; Start 01/25/17 at 21:00 Aspirin (Ecotrin Ec) 81 mg DAILY PO Last administered on 02/01/17 09:25; Start 01/26/17 at 09:00 Enoxaparin Sodium (Lovenox Inj) 40 mg Q24H SQ Last administered on 01/31/17 16 :20; Start 01/25/17 at 16:00 Potassium Chloride (KCl) 40 meq ONCE ONCE PO Last administered on 01/26/17 06: 39; Start 01/26/17 at 05:15; Stop 01/26/17 at 05:16; Status DC Furosemide (Lasix Inj) 20 mg ONCE ONCE IV PUSH Last administered on 01/26/17 13:20; Start 01/26/17 at 14:00; Stop 01/26/17 at 14:01; Status DC Potassium Chloride (KCl) 30 meq ONCE ONCE PO Last administered on 01/26/17 12: 03; Start 01/26/17 at 12:00; Stop 01/26/17 at 12:01; Status DC Furosemide (Lasix Inj) 20 mg ONCE ONCE IV PUSH Last administered on 01/27/17 14:52; Start 01/27/17 at 14:00; Stop 01/27/17 at 14:01; Status DC Potassium Chloride (KCl) 30 meq ONCE ONCE PO Last administered on 01/27/17 11: 33; Start 01/27/17 at 10:00; Stop 01/27/17 at 10:01; Status DC Furosemide (Lasix Inj) 40 mg BID IV PUSH Last administered on 01/31/17 08:33; Start 01/30/17 at 09:00; Stop 01/31/17 at 12:00; Status DC Potassium Chloride (KCl) 20 meq BID PO Last administered on 01/30/17 09:00; Start 01/30/17 at 09:00; Stop 02/01/17 at 08:47; Status DC Spironolactone (Aldactone) 25 mg DAILY PO Last administered on 01/30/17 09:00 ; Start 01/30/17 at 09:00; Stop 01/31/17 at 07:31; Status DC Metolazone (Zaroxolyn) 5 mg DAILY PO Last administered on 02/01/17 09:25; Start 01/31/17 at 09:00; Stop 02/03/17 at 10:00 Furosemide (Lasix) 40 mg BID@,18 PO Last administered on 02/01/17t 09:25; Start 01/31/17 at 18:00 Potassium Chloride (KCl) 20 meq BID PO ; Start 02/01/17 at 09:00 A/P Assessment and Plan A/P - acute on chronic systolic CHF- echo with EF 25%- continue with diuretics; lasix will be switched to po and metolazone was added - aldactone was dc'ed due to hyperkalemia- continue lisinopril and coreg- cardiology follow-up appreciated and cleared for discharge. not a candidate for AICD placement due to noncompliance with the medical treatment; needs to be on optimal medical regimen for three months. venous doppler of the lower extremities negative for DVT. -minimal elevation of troponin- likely due to CHF- denies chest pain and no acute EKG changes continue aspirin. -hypertension; resumed lisinopril and coreg-vasotec as needed- will monitor and adjust the regimen as needed. -hyperkalemia- resolved. -DVT prophylaxis with lovenox Discharge Planning dc home today with f/u by pcp and cardiology. see med list. d/w the patient. previously d/w . advised the patient again on compliance with the diet and medical treatment and follow-ups. time spent 35 min. Luis Miguel Solorzano MD February 01, 2017 11:54
[2017-02-01] MEDS ORDERED: POTA20TA5 PO (11:55)
[2017-02-01] MEDS ORDERED: METO5TAB3 PO (11:55)
--- NOTE | 2017-02-01 11:56 | HHI.DS ---
Discharge Summary Admission Date January 25, 2017 at 16:58 Discharge Date: February 01, 2017 Admitting Diagnosis CHF exacerbation, positive troponin (1) Acute exacerbation of CHF (congestive heart failure) ICD Code: I50.9 Diagnosis: Principal Procedures none Brief History - From Admission patient is a 51 y/o male with history of CHF, noncompliant with medical treatment, presented to ER with sob. he says that he was diagnosed with heart failure back in 2008. he says that after he lost his disability he couldn't have a follow-up with his doctor and couldn't get his medications. he says that he's had sob for a while and noticed that his feet legs are swollen and getting worse. he reports orthopnea. he's not sure if he's gained any weights . he denies any chest pain. CBC/BMP: 02/01/17 0836 Significant Findings Laboratory Tests Test 01/30/17 02/01/17 13:59 08:36 Potassium Level 5.6 MEQ/L (3.5-5.1) Random Glucose 110 MG/DL (74-106) Carbon Dioxide Level 36.6 MEQ/L (21.0-32.0) Imaging Last Impressions Chest X-Ray 01/25/17 1356 Signed Impressions: Service Date/Time: Wednesday, January 25, 2017 14:05 - CONCLUSION: Enlargement of the cardiac silhouette. No acute pulmonary abnormality is identified. Mane Ramirez MD Lower Extremity Ultrasound 01/25/17 0000 Signed Impressions: Service Date/Time: Wednesday, January 25, 2017 16:17 - CONCLUSION: Greater saphenous vein thrombus in the right leg. No evidence of DVT in either leg. Mane Christianson MD PE at Discharge GENERAL: This is a well-nourished, well-developed patient, in no apparent distress. CARDIOVASCULAR: Regular rate and regular rhythm without murmurs, gallops, or rubs. RESPIRATORY: Clear to auscultation. Breath sounds equal bilaterally. No wheezes , rales, or rhonchi. GASTROINTESTINAL: Abdomen soft, non-tender, nondistended. Normal, active bowel sounds MUSCULOSKELETAL: Extremities with bilateral pedal edema NEURO: Alert & Oriented x4 to person, place, time, situation. Moves all ext x4 Hospital Course - acute on chronic systolic CHF- echo with EF 25%- continue with diuretics; lasix will be switched to po and metolazone was added - aldactone was dc'ed due to hyperkalemia- continue lisinopril and coreg- cardiology follow-up appreciated and cleared for discharge. not a candidate for AICD placement due to noncompliance with the medical treatment; needs to be on optimal medical regimen for three months. venous doppler of the lower extremities negative for DVT. -minimal elevation of troponin- likely due to CHF- denies chest pain and no acute EKG changes continue aspirin. -hypertension; resumed lisinopril and coreg-vasotec as needed- will monitor and adjust the regimen as needed. -hyperkalemia- resolved. -DVT prophylaxis with lovenox Pt Condition on Discharge: Fair Discharge Disposition: Discharge Home Discharge Time: > 30 minutes Discharge Instructions DIET: Follow Instructions for: Heart Healthy Diet, Low Sodium Diet Activities you can perform: Regular-No Restrictions Follow up Referrals: Cardiology PCP Follow-up New Medications: Lisinopril (Lisinopril) 20 Mg Tab 20 MG PO DAILY hypertension Days 30 Ref 0 TAB Metolazone (Metolazone) 5 Mg Tab 5 MG PO DAILY diuretic Days 3 Ref 0 TAB Potassium Chloride Microencaps (Potassium Chloride Microencaps) 20 Meq Tab 20 MEQ PO BID electrolyte supplement. Days 30 Ref 0 TAB Continued Medications: Aspirin (Aspirin Low Dose) 81 Mg Chew 81 MG CHEW DAILY antiplatelet #30 Ref 0 TAB (This prescription has been renewed) Carvedilol (Carvedilol) 25 Mg Tab 25 MG PO BID #60 Ref 0 TAB (This prescription has been renewed) Furosemide (Furosemide) 40 Mg Tab 40 MG PO BID diuetic #60 Ref 0 TAB (This prescription has been renewed) Luis Miguel Solorzano MD February 01, 2017 11:56 Luis Miguel Solorzano MD February 01, 2017 11:56
[2017-02-01 12:00] VITALS: BP 104/65; PULSE 80; RESP 18; TEMP 98.6; O2SAT 98
[2017-02-01] MEDS: ENOXAPARIN SODIUM 40 MG/0.4 ML SYRINGE SQ SCH (14:12)
[2017-02-01 16:00] VITALS: BP 136/75; PULSE 92; RESP 19; TEMP 98.3; O2SAT 99
== END 2017-02-01 18:40 | disposition home health service (06) | DRG 292 ==
LOC: NEPE 13:13 → NEDH 15:31 → OBSVTOIN 16:58 → N04B 18:08
PROVIDERS: ADMIT Internal Medicine; ATTEND Internal Medicine
DX: I50.23 Acute on chronic systolic (congestive) heart failure (principal); I42.9 Cardiomyopathy, unspecified; E87.5 Hyperkalemia; E78.00 Pure hypercholesterolemia, unspecified; E87.6 Hypokalemia; I11.0 Hypertensive heart disease with heart failure; Z91.19 Patient's noncompliance with other medical treatment and regimen
CPT/HCPCS: 71010; 80048; 80053; 81001; 82550; 82552; 83880; 84484; 85025; 85610; 85730; 93005; 93306; 93970; 96374; J1650; J1940

== ENCOUNTER 2017-03-28 08:18 | Observation (INO) | payer OTHER ==
[~2017-03-28] VITALS: Ht 165.1 cm; Wt 142.7 kg
[~2017-03-28 08:18] MED LIST changes: +ASPI81CH37 CHEW; +CARV25TA PO; -CORE25TA PO; -FURO20 PO; +FURO40TA PO; +LISI-515 PO; -LISI-587 PO; +METO5TAB3 PO; +POTA20TA5 PO; -SPIR25 PO
[2017-03-28] MEDS ORDERED: SODIUM CHLORIDE 0.9% FLUSH 10 ML FLUSH IVF PRN (08:45)
[2017-03-28 08:51] VITALS: O2SAT 97
[2017-03-28 09:00] LABS: BASOPHIL # 0.1 TH/MM3 (0-0.2); BASOPHIL % 1.4 % (0.0-2.0); EOSINOPHIL # 0.1 TH/MM3 (0-0.4); EOSINOPHIL % 1.3 % (0.0-4.0); HEMO FLAGS DIFF FINAL; LYMPH % 20.7 % (9.0-44.0); LYMPHOCYTE # 1.3 TH/MM3 (1.0-4.8); MEAN CELL VOLUME 77.6 FL (80.0-100.0); MEAN CORPUSCULAR HGB CONC 30.9 % (32.0-36.0); MONO % 9.7 % (0.0-8.0); NEUT % 66.9 % (16.0-70.0); PLATELET COUNT 240 TH/MM3 (150-450); RED CELL DISTRIBUTION WIDTH 21.6 % (11.6-17.2); WHITE BLOOD COUNT 6.1 TH/MM3 (4.0-11.0)
[2017-03-28 09:16] LABS: ALKALINE PHOSPHATASE 124 U/L (45-117); TOTAL BILIRUBIN ADULT 1.3 MG/DL (0.2-1.0)
[2017-03-28 09:18] LABS: ALT (GPT) 24 U/L (12-78); ANION GAP 7 MEQ/L (5-15); AST (GOT) 37 U/L (15-37); BICARBONATE 30.9 MEQ/L (21.0-32.0); BLOOD UREA NITROGEN 17 MG/DL (7-18); CHLORIDE 103 MEQ/L (98-107); GLOMERULAR FILTRATION RATE 69 ML/MIN (>89); MAGNESIUM 1.5 MG/DL (1.5-2.5); POTASSIUM 3.7 MEQ/L (3.5-5.1); SODIUM (NA) 141 MEQ/L (136-145)
--- NOTE | 2017-03-28 09:54 | PD ---
HPI Chief Complaint: Complaint Time Seen by Provider: 08:32 Travel History International Travel<30 days: No Contact w/Intl Traveler<30days: No Traveled to known affect area: No History of Present Illness HPI The patient's 52 years old. He arrives to the ER complaining of "I need medications and I need refills." He ran out of his medications for CHF and hypertension a few days prior and has been tapering them. He reports increased painless scrotal swelling for 2 days now prompting his ER evaluation. Has bowel bladder habits have been normal. Appetite has been normal. No urinary complaint. PFSH Past Medical History Hx Anticoagulant Therapy: Yes (asa 81) Asthma: No Cancer: No Cardiovascular Problems: Yes (htn, chf) High Cholesterol: Yes Chemotherapy: No Congestive Heart Failure: Yes COPD: No Endocrine: No Genitourinary: No Hypertension: Yes Immune Disorder: No Musculoskeletal: No Neurologic: No Psychiatric: No Reproductive: No Respiratory: Yes Integumentary: Yes (chronic ulcers to bilateral lower extremities) Immunizations Current: Yes Radiation Therapy: No Sleep Apnea: No Past Surgical History Abdominal Surgery: Yes (hernia repair) AICD: No Arteriovenous Shunt: No Insulin Pump: No Joint Replacement: No Pacemaker: No Social History Alcohol Use: No Tobacco Use: No Substance Use: No Allergies-Medications (Allergen,Severity, Reaction): Coded Allergies: Dairy (Verified Allergy, Severe, 03/28/17) Milk (Verified Adverse Reaction, Severe, 03/28/17) GI UPSET Reported Meds & Prescriptions Reported Meds & Active Scripts Active Potassium Chloride Microencaps 20 Meq Tab 20 Meq PO BID 30 Days Lisinopril 20 Mg Tab 20 Mg PO DAILY 30 Days Aspirin Low Dose (Aspirin) 81 Mg Chew 81 Mg CHEW DAILY Furosemide 40 Mg Tab 40 Mg PO BID Carvedilol 25 Mg Tab 25 Mg PO BID Review of Systems Except as stated in HPI: all other systems reviewed are Neg Physical Exam Narrative GENERAL: 52 yo M, WNWD, NAD SKIN: Warm and dry. HEAD: Atraumatic. Normocephalic. : The scrotum is enlarged approximately 10 cm in greatest diameter. There is no tenderness with a scrotal exam warmth crepitus or sign of infection otherwise. EYES: Pupils equal and round. No scleral icterus. No injection or drainage. ENT: No nasal bleeding or discharge. Mucous membranes pink and moist. NECK: Trachea midline. No JVD. CARDIOVASCULAR: Regular rate and rhythm. RESPIRATORY: No accessory muscle use. Clear to auscultation. Breath sounds equal bilaterally. GASTROINTESTINAL: Abdomen soft, non-tender, nondistended. Hepatic and splenic margins not palpable. MUSCULOSKELETAL: Extremities without clubbing, cyanosis, or edema. No obvious deformities. NEUROLOGICAL: Awake and alert. No obvious cranial nerve deficits. Motor grossly within normal limits. Five out of 5 muscle strength in the arms and legs. Normal speech. PSYCHIATRIC: Appropriate mood and affect; insight and judgment normal. Data Data Last Documented VS Vital Signs Date Time Temp Pulse Resp B/P Pulse Ox O2 Delivery O2 Flow Rate FiO2 03/28/17 08:51 97 Temp 98.8 Orders Complete Blood Count With Diff (03/28/17 08:40) Comprehensive Metabolic Panel (03/28/17 08:40) Magnesium (Mg) (03/28/17 08:40) Ecg Monitoring (03/28/17 08:40) Iv Access Insert/Monitor (03/28/17 08:40) Oximetry (03/28/17 08:40) Sodium Chloride 0.9% Flush (Ns Flush) (03/28/17 08:45) B-Type Natriuretic Peptide (03/28/17 08:40) Us Testicles W Doppler (03/28/17 ) Chest, Single Ap (03/28/17 ) Furosemide Inj (Lasix Inj) (03/28/17 10:45) Admit Order (Ed Use Only) (03/28/17 11:05) Labs Laboratory Tests Test 03/28/17 08:40 White Blood Count 6.1 TH/MM3 Red Blood Count 5.80 MIL/MM3 Hemoglobin 13.9 GM/DL Hematocrit 45.0 % Mean Corpuscular Volume 77.6 FL Mean Corpuscular Hemoglobin 24.0 PG Mean Corpuscular Hemoglobin 30.9 % Concent Red Cell Distribution Width 21.6 % Platelet Count 240 TH/MM3 Mean Platelet Volume 9.2 FL Neutrophils (%) (Auto) 66.9 % Lymphocytes (%) (Auto) 20.7 % Monocytes (%) (Auto) 9.7 % Eosinophils (%) (Auto) 1.3 % Basophils (%) (Auto) 1.4 % Neutrophils # (Auto) 4.0 TH/MM3 Lymphocytes # (Auto) 1.3 TH/MM3 Monocytes # (Auto) 0.6 TH/MM3 Eosinophils # (Auto) 0.1 TH/MM3 Basophils # (Auto) 0.1 TH/MM3 CBC Comment DIFF FINAL Differential Comment Sodium Level 141 MEQ/L Potassium Level 3.7 MEQ/L Chloride Level 103 MEQ/L Carbon Dioxide Level 30.9 MEQ/L Anion Gap 7 MEQ/L Blood Urea Nitrogen 17 MG/DL Creatinine 1.32 MG/DL Estimat Glomerular Filtration 69 ML/MIN Rate Random Glucose 99 MG/DL Calcium Level 8.7 MG/DL Magnesium Level 1.5 MG/DL Total Bilirubin 1.3 MG/DL Aspartate Amino Transf 37 U/L (AST/SGOT) Alanine Aminotransferase 24 U/L (ALT/SGPT) Alkaline Phosphatase 124 U/L B-Type Natriuretic Peptide 604 PG/ML Total Protein 7.1 GM/DL Albumin 3.0 GM/DL MDM Medical Decision Making Medical Screen Exam Complete: Yes Emergency Medical Condition: Yes Medical Record Reviewed: Yes Differential Diagnosis Medication compliance, CHF exacerbation, anemia, renal failure, Barbi's disease, torsed testicle Narrative Course CBC & BMP Diagram 03/28/17 08:40 BNP 604 LFTs normal Last 24 hours Impressions Scrotum Ultrasound 03/28/17 0000 Signed Impressions: Service Date/Time: March 09:07 - CONCLUSION: 1. Severe subcutaneous edema and scrotal soft tissue swelling. 2. Testicles demonstrate no abnormality. Mane Ramirez MD Chest X-Ray 03/28/17 0000 Signed Impressions: Service Date/Time: March 10:42 - CONCLUSION: 1. Very mild platelike atelectasis left upper lung. 2. Otherwise, no new or acute pulmonary infiltrates. 3. Stable prominent cardiomegaly. Tr Troy MD The patient has no outside follow-up. He is mildly dyspneic sitting on the edge of the bed. With a BNP of 604 we will admit the patient for CHF exacerbation. Discussed with Dr. Contreras for [facility]. 40mg IV Lasix given in ER. No CP, fever or cough such that today's presentation is considered most likely 2 /2 medication non-compliance 2/2 no insurance and reliable outpatient follow up. Diagnosis Primary Impression: Acute exacerbation of CHF (congestive heart failure) Qualified Code: I50.9 - Acute on chronic congestive heart failure, unspecified congestive heart failure type Additional Impression: Scrotum swelling Admitting Information Admitting Physician Requests: Observation Simon Medel MD Mar 28, 2017 09:54
--- NOTE | 2017-03-28 10:12 | RADRPT ---
EXAM DATE/TIME: 03/28/2017 09:07 [facility] COMPARISON: No previous studies available for comparison. INDICATIONS : Testicular swelling. MEDICAL HISTORY : Hypercholesterolemia. Congestive heart failure. Dyspnea. HTN. Chronic ulcers. Anticoagulant therapy, Aspirin 81mg. SURGICAL HISTORY : Umbilical hernia repair. ENCOUNTER: Initial ACUITY: 1 week PAIN SCORE: 0/10 LOCATION: Bilateral scrotum. MEASUREMENTS: RIGHT TESTICLE: 3.2 x 2.3 x 2.9cm LEFT TESTICLE: 3.5 x 2.5 x 2.7cm FINDINGS: RIGHT TESTICLE: Homogeneous echotexture without intra or extratesticular mass. Blood flow is symmetric and within no rmal limits. No significant hydrocele or varicocele. Epididymis is within normal limits. LEFT TESTICLE: Homogeneous echotexture without intra or extratesticular mass. Blood flow is symmetric and within no rmal limits. No significant hydrocele or varicocele. Epididymis is within normal limits. SCROTUM: There is severe swelling and subcutaneous edema of the scrotum. CONCLUSION: 1. Severe subcutaneous edema and scrotal soft tissue swelling. 2. Testicles demonstrate no abnormality. Mane Ramirez MD on March 28, 2017 at 10:03 Board Certified Radiologist. This report was verified electronically.
[2017-03-28] MEDS ORDERED: FUROSEMIDE 40 MG/4 ML VIAL IV PUSH ONE (10:45)
[2017-03-28] MEDS ORDERED: SODIUM CHLORIDE 0.9% FLUSH 10 ML FLUSH IV FLUSH PRN (11:30)
[2017-03-28] MEDS: HEPARIN SODIUM - SQ 10,000 UNITS/ML VIAL SQ SCH ×2 (11:33→23:40)
--- NOTE | 2017-03-28 11:45 | RADRPT ---
EXAM DATE/TIME: 03/28/2017 10:42 [facility] COMPARISON: CHEST SINGLE AP, January 25, 2017, 14:05. INDICATIONS : Enlarged scrotum, short of breath. MEDICAL HISTORY : Congestive heart failure. SURGICAL HISTORY : None. ENCOUNTER: Initial ACUITY: 1 day PAIN SCORE: 0/10 LOCATION: Bilateral chest FINDINGS: A single view of the chest demonstrates the lungs to be symmetrically aerated without evidence of mas s, infiltrate or effusion. Mild platelike atelectasis in the left upper lung. The heart size remaine d diffusely enlarged but stable compared to the prior exam.. Osseous structures are intact and stabl e. CONCLUSION: 1. Very mild platelike atelectasis left upper lung. 2. Otherwise, no new or acute pulmonary infiltrates. 3. Stable prominent cardiomegaly. Tr Troy MD on March 28, 2017 at 11:42 Board Certified Radiologist. This report was verified electronically.
[2017-03-28] MEDS: METOLAZONE 2.5 MG TAB PO SCH (11:54)
[2017-03-28 12:24] VITALS: BP 144/87; PULSE 78; RESP 20; TEMP 98.8; O2SAT 96
--- NOTE | 2017-03-28 14:57 | HHI.HP ---
HPI Service [facility] Primary Care Physician No Primary Care Physician Admission Diagnosis CHF Exacerbation, Scrotal Edema Diagnoses: Chief Complaint: Generalized edema, anasarca, scrotal edema Travel History International Travel<30 Days: No Contact w/Intl Traveler <30 Da: No Traveled to Known Affected Are: No History of Present Illness Written by Florentino Davey, acting as scribe for Dr. Contreras on 03/28/17 at 14:29. Patient is a 52-year-old male with primary medical history of digestive heart failure EF 25-30%, hypertension, noncompliant with medications who came in to the ED for medication refill. Patient states she has increasing painless scrotal edema, abdominal edema, but bilateral lower extremities are the same. States that he was given medication prescription when he was discharge in January, he is trying to stretch it out until he gets his disability back as he was applying for patient assistance. States that he got approved for Medicaid [place] care and will have coverage soon. Denies pain and discomfort. Denies SOB/ dyspnea. Denies chest pain, palpitations, headaches, dizziness. Denies fevers, chills, n/v/d. Denies dysuria. Review of Systems Except as stated in HPI: all other systems reviewed are Neg Past Family Social History Past Medical History CHF diagnosed in 2008 HTN Past Surgical History Hernia repair Reported Medications Reported Meds & Active Scripts Active Potassium Chloride Microencaps 20 Meq Tab 20 Meq PO BID 30 Days Lisinopril 20 Mg Tab 20 Mg PO DAILY 30 Days Aspirin Low Dose (Aspirin) 81 Mg Chew 81 Mg CHEW DAILY Furosemide 40 Mg Tab 40 Mg PO BID Carvedilol 25 Mg Tab 25 Mg PO BID Allergies: Coded Allergies: Dairy (Verified Allergy, Severe, 03/28/17) Milk (Verified Adverse Reaction, Severe, 03/28/17) GI UPSET Active Ordered Medications Current Medications Medications (Trade) Dose Ordered Sig/Michel Route Start Time Stop Time Status Last Admin (Aspirin Chew) 81 mg DAILY CHEW 03/29/17 09:00 (Prinivil) 20 mg DAILY PO 03/29/17 09:00 (KCl) 20 meq BID PO 03/28/17 21:00 (NS Flush) 2 ml BID IV FLUSH 03/28/17 21:00 (NS Flush) 2 ml UNSCH PRN IV FLUSH 03/28/17 11:30 (Lasix Inj) 40 mg BID@09,18 IVP 03/28/17 18:00 (Zaroxolyn) 2.5 mg DAILY PO 03/28/17 11:30 03/28/17 11:54 (Heparin Inj) 5,000 units Q12H SQ 03/28/17 12:00 03/28/17 11:33 Family History Mother had heart problems, multiple heart attacks Social History Denies recent alcohol use, used to drink a while back occasionally Former smoker, a pack per week 20 years quit in 2004 Denies illicit drug use Physical Exam Vital Signs Vital Signs Date Time Temp Pulse Resp B/P Pulse Ox O2 Delivery O2 Flow Rate FiO2 03/28/17 12:24 98.8 78 20 144/87 96 03/28/17 08:51 97 Physical Exam GENERAL: This is an obese, well-developed patient, in no apparent distress. SKIN: Warm and dry. HEAD: Atraumatic. Normocephalic. No temporal or scalp tenderness. EYES: Pupils equal round and reactive. Extraocular motions intact. No scleral icterus. No injection or drainage. ENT: Nose without bleeding. Throat without erythema. Uvula midline. Airway patent. NECK: Trachea midline. CARDIOVASCULAR: Regular rate and rhythm without murmurs, gallops, or rubs. RESPIRATORY: Clear to auscultation. Breath sounds equal bilaterally. No wheezes , rales, or rhonchi. GASTROINTESTINAL: Abdomen obese, non-tender, protuberant. Anasarca noted. : Scrotal edema +4 MUSCULOSKELETAL: Extremities without clubbing, cyanosis, bilateral lower extremity +2 - +3 edema. NEUROLOGICAL: Awake and alert. Oriented to person, place, time. Motor and sensory grossly within normal limits. Normal speech. Laboratory Laboratory Tests Test 03/28/17 08:40 White Blood Count 6.1 Red Blood Count 5.80 Hemoglobin 13.9 Hematocrit 45.0 Mean Corpuscular Volume 77.6 Mean Corpuscular Hemoglobin 24.0 Mean Corpuscular Hemoglobin 30.9 Concent Red Cell Distribution Width 21.6 Platelet Count 240 Mean Platelet Volume 9.2 Neutrophils (%) (Auto) 66.9 Lymphocytes (%) (Auto) 20.7 Monocytes (%) (Auto) 9.7 Eosinophils (%) (Auto) 1.3 Basophils (%) (Auto) 1.4 Neutrophils # (Auto) 4.0 Lymphocytes # (Auto) 1.3 Monocytes # (Auto) 0.6 Eosinophils # (Auto) 0.1 Basophils # (Auto) 0.1 CBC Comment DIFF FINAL Differential Comment Sodium Level 141 Potassium Level 3.7 Chloride Level 103 Carbon Dioxide Level 30.9 Anion Gap 7 Blood Urea Nitrogen 17 Creatinine 1.32 Estimat Glomerular Filtration 69 Rate Random Glucose 99 Calcium Level 8.7 Magnesium Level 1.5 Total Bilirubin 1.3 Aspartate Amino Transf 37 (AST/SGOT) Alanine Aminotransferase 24 (ALT/SGPT) Alkaline Phosphatase 124 B-Type Natriuretic Peptide 604 Total Protein 7.1 Albumin 3.0 Result Diagram: 03/28/17 0840 03/28/17 0840 Imaging Last Impressions Scrotum Ultrasound 03/28/17 0000 Signed Impressions: Service Date/Time: March 09:07 - CONCLUSION: 1. Severe subcutaneous edema and scrotal soft tissue swelling. 2. Testicles demonstrate no abnormality. Mane Ramirez MD Chest X-Ray 03/28/17 0000 Signed Impressions: Service Date/Time: March 10:42 - CONCLUSION: 1. Very mild platelike atelectasis left upper lung. 2. Otherwise, no new or acute pulmonary infiltrates. 3. Stable prominent cardiomegaly. Tr Troy MD Assessment and Plan Problem List: (1) Acute exacerbation of CHF (congestive heart failure) ICD Code: I50.9 Status: Acute (2) Scrotum swelling ICD Code: N50.89 Status: Acute (3) Elevated troponin ICD Code: R74.8 Status: Acute Assessment and Plan Patient is a 52-year-old male with primary medical history of digestive heart failure EF 25-30%, hypertension who came in to the ED for medication refill, increasing painless scrotal edema. Systolic congestive heart failure, acute on chronic exacerbation - Patient is noncompliant to taking the medications. States stretching out meds and not able to refill it while he was applying for patient assistance. States he is now been to get coverage for medicated [facility]. Needs assistance with PCP arrangements for follow-up. - He was seen previously in January was not a candidate for ICD secondary to noncompliance with medication in 3 months for optimal medications. - BNP 604 - Lasix 40 mg twice a day IV, potassium 20 twice a day, metolazone 2.5 mg daily - Fluid restriction 1500ml - Recheck BMP - Patient counseled as to compliance of medication and importance of following up with her PCP. Discussed risks including but not limited to sudden . Verbalized understanding. States to be compliant but due to circumstances he was unable to. We'll provide patient's enough medication refills until his follow-up appointment to a new PCP. HTN - Continue lisinopril 20 mg daily, ASA 81 mg - Will restart Coreg 25 mg twice a day tomorrow, with BP parameters - Monitor BP trend ZHANNA - Trend BMP Case management - Consult for assistance in placing patient on the PCP. States he will be with [employer] [facility]. DVT prop heparin This note was transcribed by oneyda [Florentino Dvaey]. I, Dr. Carlitos Contreras personally performed the history, physical exam, and medical decision making; and confirmed the accuracy of the information in the transcribed note. Authenticated by Dr. Carlitos Contreras on 03/28/17 at 1435 Code Status Full Code Discussed Condition With Patient, nursing Problem Qualifiers (1) Acute exacerbation of CHF (congestive heart failure): Qualified Code: I50.9 - Acute on chronic congestive heart failure, unspecified congestive heart failure type Florentino Paulino Mar 28, 2017 14:57 Carlitos Contreras MD Mar 28, 2017 16:00
[2017-03-28] MEDS: FUROSEMIDE 40 MG/4 ML VIAL IVP SCH (18:40)
[2017-03-28 20:07] VITALS: PULSE 90
[2017-03-28 20:08] VITALS: BP 148/93; PULSE 89; RESP 20; TEMP 98.6; O2SAT 94
[2017-03-28] MEDS: SODIUM CHLORIDE 0.9% FLUSH 10 ML FLUSH IV FLUSH SCH (21:08)
[2017-03-28] MEDS: POTASSIUM CHLORIDE 20 MEQ CONTROLLED RELEASE TAB PO SCH (21:08)
[2017-03-29] VITALS: BP 162/103; PULSE 91; RESP 20; TEMP 98.1; O2SAT 92
[2017-03-29 04:00] VITALS: BP 163/93; PULSE 89; RESP 20; TEMP 98.1; O2SAT 92
[2017-03-29 08:00] VITALS: BP_SYST 121; BP_SYST 158; BP_DIAS 76; BP_DIAS 98; PULSE 76; PULSE 91; RESP 20; TEMP 98.5; TEMP 98.7; O2SAT 92; O2SAT 98
[2017-03-29] MEDS: ASPIRIN 81 MG CHEW TAB CHEW SCH (09:22)
[2017-03-29] MEDS: LISINOPRIL 20 MG TAB PO SCH (09:22)
[2017-03-29] MEDS: METOLAZONE 2.5 MG TAB PO SCH (09:22)
[2017-03-29] MEDS: FUROSEMIDE 40 MG/4 ML VIAL IVP SCH ×2 (09:23→17:19)
[2017-03-29] MEDS: POTASSIUM CHLORIDE 20 MEQ CONTROLLED RELEASE TAB PO SCH ×2 (09:23→21:20)
[2017-03-29] MEDS: SODIUM CHLORIDE 0.9% FLUSH 10 ML FLUSH IV FLUSH SCH ×2 (09:23→21:21)
[2017-03-29] MEDS: CARVEDILOL 12.5 MG TAB PO SCH ×2 (09:31→21:20)
[2017-03-29 09:38] LABS: BICARBONATE 35.8 MEQ/L (21.0-32.0)
[2017-03-29 09:58] LABS: POTASSIUM 2.9 MEQ/L (3.5-5.1)
--- NOTE | 2017-03-29 10:02 | HHI.PR ---
Subjective Remarks Patient reports is feeling okay. Diuresing well. Mild improvement in scrotal edema. No chest pain. Objective Vitals Vital Signs Date Time Temp Pulse Resp B/P Pulse Ox O2 Delivery O2 Flow Rate FiO2 03/29/17 08:00 98.7 91 20 158/98 98 03/29/17 04:00 98.1 89 20 163/93 92 03/29/17 00:00 98.1 91 20 162/103 92 03/28/17 20:08 98.6 89 20 148/93 94 03/28/17 20:07 90 03/28/17 20:00 Room Air 03/28/17 12:24 98.8 78 20 144/87 96 I/O 03/28/17 03/28/17 03/28/17 03/29/17 03/29/17 03/29/17 07:00 15:00 23:00 07:00 15:00 23:00 Intake Total 2 ml 380 ml 60 ml Output Total 2400 ml 350 ml Balance 2 ml -2020 ml -290 ml Intake Oral 380 ml 60 ml IV Total 2 ml Output Urine Total 2400 ml 350 ml # Bowel Movements 1 0 Result Diagram: 03/28/17 0840 03/29/17 0819 Imaging Last Impressions Scrotum Ultrasound 03/28/17 0000 Signed Impressions: Service Date/Time: March 09:07 - CONCLUSION: 1. Severe subcutaneous edema and scrotal soft tissue swelling. 2. Testicles demonstrate no abnormality. Mane Ramirez MD Chest X-Ray 03/28/17 0000 Signed Impressions: Service Date/Time: March 10:42 - CONCLUSION: 1. Very mild platelike atelectasis left upper lung. 2. Otherwise, no new or acute pulmonary infiltrates. 3. Stable prominent cardiomegaly. Tr Troy MD Objective Remarks GENERAL: Morbidly obese male in no acute distress. CARDIOVASCULAR: Normal rate and regular rhythm without murmurs, gallops, or rubs. RESPIRATORY: Good respiratory efforts. Breath sounds equal and clear to auscultation bilaterally. GASTROINTESTINAL: Abdomen obese, anasarca noted. Normal and active bowel sounds. MUSCULOSKELETAL: Bilateral lower extremity with thick venous stasis changes and edema 3+. NEURO: Alert & Oriented x4 to person, place, time, situation. Moves all ext x4 PSYCH: Appropriate mood and affect. A/P Problem List: (1) Acute exacerbation of CHF (congestive heart failure) ICD Code: I50.9 Status: Acute (2) Scrotum swelling ICD Code: N50.89 Status: Acute (3) Elevated troponin ICD Code: R74.8 Status: Acute (4) Hypokalemia ICD Code: E87.6 Status: Acute Assessment and Plan 52-year-old male with primary medical history of digestive heart failure EF 25- 30%, admitted for acute on chronic systolic CHF, worsening scrotal edema. Systolic congestive heart failure, acute on chronic exacerbation -Noncompliance due to lack of insurance and PCP per the patient. He has been stretching out his medications. States he recently got Medicaid. - He was seen previously in January was not a candidate for ICD secondary to noncompliance with medication in 3 months for optimal medications. - BNP 604 on admission - Continue Lasix 40 mg twice a day IV, potassium 20 twice a day, metolazone 2.5 mg daily - Fluid restriction 1500ml -Replete potassium. - Patient counseled as to compliance of medication and importance of following up with her PCP. Discussed risks including but not limited to sudden . Verbalized understanding. States to be compliant but due to circumstances he was unable to. We'll provide patient's enough medication refills until his follow-up appointment to a new PCP. Hypokalemia: Replace and monitor. HTN - Continue lisinopril 20 mg daily, ASA 81 mg -Restart Coreg 25 mg twice a day, with BP parameters - Monitor BP trend ZHANNA - Trend BMP Case management - Consult for assistance in placing patient on the PCP. States he will be with [facility]. DVT prop heparin Discharge Planning Possible discharge tomorrow if continues to improve. Problem Qualifiers (1) Acute exacerbation of CHF (congestive heart failure): Qualified Code: I50.9 - Acute on chronic congestive heart failure, unspecified congestive heart failure type Carlitos Contreras MD Mar 29, 2017 10:02
[2017-03-29] MEDS ORDERED: POTASSIUM CHLORIDE 10 MEQ CONTROLLED RELEASE TAB PO ONE (10:15)
[2017-03-29] MEDS ORDERED: MAGNESIUM SULFATE 1 GM PREMIX 100 ML IV ONE (10:15)
[2017-03-29] MEDS: HEPARIN SODIUM - SQ 10,000 UNITS/ML VIAL SQ SCH ×2 (12:58→23:31)
[2017-03-29 16:00] VITALS: BP 116/70; PULSE 83; RESP 20; TEMP 97.7; O2SAT 98
[2017-03-29 20:11] VITALS: PULSE 88
[2017-03-29 20:40] VITALS: BP 134/81; PULSE 81; RESP 22; TEMP 99; O2SAT 96
[2017-03-30] VITALS: BP 107/64; PULSE 80; RESP 23; TEMP 98.4; O2SAT 94
[2017-03-30 05:18] VITALS: BP 132/87; PULSE 77; RESP 20; TEMP 97.6; O2SAT 97
[2017-03-30 07:57] LABS: BICARBONATE 40.7 MEQ/L (21.0-32.0); POTASSIUM 3.4 MEQ/L (3.5-5.1)
[2017-03-30 08:00] VITALS: BP 150/87; PULSE 84; RESP 20; TEMP 97.9; O2SAT 95
[2017-03-30 08:05] VITALS: PULSE 82
[2017-03-30] MEDS: SODIUM CHLORIDE 0.9% FLUSH 10 ML FLUSH IV FLUSH SCH (08:22)
[2017-03-30] MEDS: METOLAZONE 2.5 MG TAB PO SCH (08:23)
[2017-03-30] MEDS: POTASSIUM CHLORIDE 20 MEQ CONTROLLED RELEASE TAB PO SCH (08:23)
[2017-03-30] MEDS: LISINOPRIL 20 MG TAB PO SCH (08:25)
[2017-03-30] MEDS: FUROSEMIDE 40 MG/4 ML VIAL IVP SCH (08:25)
[2017-03-30] MEDS: CARVEDILOL 12.5 MG TAB PO SCH (08:25)
[2017-03-30] MEDS: ASPIRIN 81 MG CHEW TAB CHEW SCH (08:26)
[2017-03-30 12:00] VITALS: BP 112/62; PULSE 80; RESP 20; TEMP 98.2; O2SAT 95
[2017-03-30] MEDS: HEPARIN SODIUM - SQ 10,000 UNITS/ML VIAL SQ SCH (12:24)
[2017-03-30] MEDS ORDERED: POTA20TA5 PO (12:33)
[2017-03-30] MEDS ORDERED: METO2.5T PO (12:33)
[2017-03-30] MEDS ORDERED: LISI-515 PO (12:33)
[2017-03-30] MEDS ORDERED: FURO40TA PO (12:33)
[2017-03-30] MEDS ORDERED: CARV25TA PO (12:33)
[2017-03-30] MEDS ORDERED: ASPI81CH37 CHEW (12:33)
--- NOTE | 2017-03-30 12:35 | HHI.DS ---
Discharge Summary Admission Date Mar 28, 2017 at 11:06 Discharge Date: Mar 30, 2017 Admitting Diagnosis CHF Exacerbation, Scrotal Edema (1) Acute exacerbation of CHF (congestive heart failure) ICD Code: I50.9 (2) Scrotum swelling ICD Code: N50.89 (3) Elevated troponin ICD Code: R74.8 (4) Hypokalemia ICD Code: E87.6 Procedures None Brief History - From Admission Patient is a 52-year-old male with primary medical history of digestive heart failure EF 25-30%, hypertension, noncompliant with medications who came in to the ED for medication refill. Patient states she has increasing painless scrotal edema, abdominal edema, but bilateral lower extremities are the same. States that he was given medication prescription when he was discharge in January, he is trying to stretch it out until he gets his disability back as he was applying for patient assistance. States that he got approved for Medicaid [facility] and will have coverage soon. Denies pain and discomfort. Denies SOB/ dyspnea. Denies chest pain, palpitations, headaches, dizziness. Denies fevers, chills, n/v/d. Denies dysuria. CBC/BMP: 03/28/17 0840 03/30/17 0617 Significant Findings Laboratory Tests Test 03/28/17 03/29/17 03/30/17 08:40 08:19 06:17 Mean Corpuscular Volume 77.6 FL (80.0-100.0) Mean Corpuscular Hemoglobin 24.0 PG (27.0-34.0) Mean Corpuscular Hemoglobin 30.9 % Concent (32.0-36.0) Red Cell Distribution Width 21.6 % (11.6-17.2) Monocytes (%) (Auto) 9.7 % (0.0-8.0) Creatinine 1.32 MG/DL (0.60-1.30) Estimat Glomerular Filtration 69 ML/MIN (>89) Rate Total Bilirubin 1.3 MG/DL (0.2-1.0) Alkaline Phosphatase 124 U/L (45-117) B-Type Natriuretic Peptide 604 PG/ML (0-100) Albumin 3.0 GM/DL (3.4-5.0) Potassium Level 2.9 MEQ/L 3.4 MEQ/L (3.5-5.1) (3.5-5.1) Chloride Level 96 MEQ/L 93 MEQ/L (98-107) (98-107) Carbon Dioxide Level 35.8 MEQ/L 40.7 MEQ/L (21.0-32.0) (21.0-32.0) Imaging Last Impressions Scrotum Ultrasound 03/28/17 0000 Signed Impressions: Service Date/Time: , March 28, 2017 09:07 - CONCLUSION: 1. Severe subcutaneous edema and scrotal soft tissue swelling. 2. Testicles demonstrate no abnormality. Mane Ramirez MD Chest X-Ray 03/28/17 0000 Signed Impressions: Service Date/Time: , March 28, 2017 10:42 - CONCLUSION: 1. Very mild platelike atelectasis left upper lung. 2. Otherwise, no new or acute pulmonary infiltrates. 3. Stable prominent cardiomegaly. Tr Troy MD PE at Discharge GENERAL: Morbidly obese male in no acute distress. CARDIOVASCULAR: Normal rate and regular rhythm without murmurs, gallops, or rubs. RESPIRATORY: Good respiratory efforts. Breath sounds equal and clear to auscultation bilaterally. GASTROINTESTINAL: Abdomen obese, anasarca noted. Normal and active bowel sounds. MUSCULOSKELETAL: Bilateral lower extremity with thick venous stasis changes and edema 3+. NEURO: Alert & Oriented x4 to person, place, time, situation. Moves all ext x4 PSYCH: Appropriate mood and affect. Pt update on day of discharge Patient reports is feeling better. Feels less bloated. No shortness of breath or chest pain. Feels edema is much improved. Hospital Course 52-year-old male with primary medical history of digestive heart failure EF 25- 30%, admitted for acute on chronic systolic CHF, worsening scrotal edema. Evaluation and treatment course detailed below: Systolic congestive heart failure, acute on chronic exacerbation -Noncompliance due to lack of insurance and PCP per the patient. He has been stretching out his medications. States he recently got Medicaid. - He was seen previously in January was not a candidate for ICD secondary to noncompliance with medication in 3 months for optimal medications. - BNP 604 on admission -Patient treated with Lasix 40 mg twice a day IV, potassium 20 twice a day, metolazone 2.5 mg daily - Fluid restriction 1500ml. - Patient responded very well to diuresis with improvement of his symptoms. He is discharged home on the same medications oral to continue diuretics - Patient counseled as to compliance of medication and importance of following up with her PCP. Discussed risks including but not limited to sudden . Verbalized understanding. States to be compliant but due to circumstances he was unable to. We'll provide patient's enough medication refills until his follow-up appointment to a new PCP. Hypokalemia: Replaced. HTN - Continue lisinopril 20 mg daily, ASA 81 mg -Continue Coreg 25 mg twice a day, with BP parameters - Monitor BP trend ZHANNA: Secondary to heart failure exacerbation. Resolved with treatment. Pt Condition on Discharge: Good Discharge Disposition: Discharge Home Discharge Time: <= 30 minutes Discharge Instructions DIET: Follow Instructions for: Diabetic Diet Additional Diet Instructions: Limit fluid intake to less than 1500 ml per day. Activities you can perform: Regular-No Restrictions Follow up Referrals: PCP Follow-up - 2 Weeks New Medications: Metolazone (Metolazone) 2.5 Mg Tab 2.5 MG PO DAILY #30 Ref 1 TAB Continued Medications: Aspirin (Aspirin Low Dose) 81 Mg Chew 81 MG CHEW DAILY antiplatelet #30 Ref 1 TAB (This prescription has been renewed) Carvedilol (Carvedilol) 25 Mg Tab 25 MG PO BID #60 Ref 1 TAB (This prescription has been renewed) Furosemide (Furosemide) 40 Mg Tab 40 MG PO BID diuretic #60 Ref 1 TAB (This prescription has been renewed) Lisinopril (Lisinopril) 20 Mg Tab 20 MG PO DAILY hypertension #30 Ref 1 TAB (This prescription has been renewed) Potassium Chloride Microencaps (Potassium Chloride Microencaps) 20 Meq Tab 20 MEQ PO BID electrolyte supplement. #60 Ref 1 TAB (This prescription has been renewed) Carlitos Contreras MD Mar 30, 2017 12:35
== END 2017-03-30 15:26 | disposition home or self-care (01) ==
LOC: NEPE 08:18 → INTOOBSV 11:06 → NEDA 11:06 → N04B 14:50
PROVIDERS: ADMIT Family Medicine; ATTEND Family Medicine
DX: I11.0 Hypertensive heart disease with heart failure (principal); I50.23 Acute on chronic systolic (congestive) heart failure; N50.89 Other specified disorders of the male genital organs; R74.8 Abnormal levels of other serum enzymes; E87.6 Hypokalemia; R06.02 Shortness of breath; N17.9 Acute kidney failure, unspecified; E78.00 Pure hypercholesterolemia, unspecified; E66.01 Morbid (severe) obesity due to excess calories; Z91.14 Patient's other noncompliance with medication regimen; Z79.899 Other long term (current) drug therapy; Z79.82 Long term (current) use of aspirin
CPT/HCPCS: 71010; 76870; 80048; 80053; 83735; 83880; 85025; 93975; 96374; 99285; G0378; J1644; J1940; J3475

== ENCOUNTER 2017-04-16 13:05 | Observation (INO) | payer OTHER ==
[~2017-04-16] VITALS: Ht 165.1 cm; Wt 117.0 kg
[~2017-04-16 13:05] MED LIST changes: +METO2.5T PO; -METO5TAB3 PO
[2017-04-16 13:09] VITALS: BP 137/89; PULSE 89; RESP 15; TEMP 98.2; O2SAT 98
[2017-04-16] MEDS ORDERED: PIPERACIL-TAZO 4.5 GM PREMIX 100 ML IV ONE (17:30)
[2017-04-16] MEDS ORDERED: VANCOMYCIN INJ 1,000 MG in SODIUM CHLOR 0.9% 250 ML INJ 250 ML IV ONE (17:30)
[2017-04-16 18:34] VITALS: BP 123/69; PULSE 93; RESP 21; O2SAT 92
[2017-04-16 18:38] LABS: AUTOMATED NEUTROPHIL # 4.7 TH/MM3 (1.8-7.7); BASOPHIL # 0.1 TH/MM3 (0-0.2); BASOPHIL % 0.8 % (0.0-2.0); EOSINOPHIL # 0.1 TH/MM3 (0-0.4); EOSINOPHIL % 1.7 % (0.0-4.0); HEMATOCRIT 43.6 % (39.0-51.0); HEMO FLAGS DIFF FINAL; LYMPHOCYTE # 2.4 TH/MM3 (1.0-4.8); MEAN CELL VOLUME 76.2 FL (80.0-100.0); MEAN CORPUSCULAR HEMOGLOBIN 24.8 PG (27.0-34.0); MEAN CORPUSCULAR HGB CONC 32.5 % (32.0-36.0); MONO % 11.2 % (0.0-8.0); NEUT % 57.3 % (16.0-70.0); PLATELET COUNT 451 TH/MM3 (150-450); RED BLOOD COUNT 5.72 MIL/MM3 (4.50-5.90); RED CELL DISTRIBUTION WIDTH 20.7 % (11.6-17.2); WHITE BLOOD COUNT 8.1 TH/MM3 (4.0-11.0)
[2017-04-16 19:03] LABS: ALT (GPT) 28 U/L (12-78)
[2017-04-16 19:06] LABS: ALKALINE PHOSPHATASE 207 U/L (45-117); ANION GAP 5 MEQ/L (5-15); AST (GOT) 44 U/L (15-37); BICARBONATE 35.7 MEQ/L (21.0-32.0); BLOOD UREA NITROGEN 19 MG/DL (7-18); CHLORIDE 93 MEQ/L (98-107); GLOMERULAR FILTRATION RATE 101 ML/MIN (>89); POTASSIUM 3.3 MEQ/L (3.5-5.1); SODIUM (NA) 134 MEQ/L (136-145); TOTAL BILIRUBIN ADULT 0.6 MG/DL (0.2-1.0)
--- NOTE | 2017-04-16 19:23 | PD ---
HPI Chief Complaint: Wound/Suture/Staple Re-Check Time Seen by Provider: 17:19 Travel History International Travel<30 days: No Contact w/Intl Traveler<30days: No Traveled to known affect area: No History of Present Illness HPI 52-year-old male came to the emergency room sent by his primary care for left leg infection. Patient says that this has been going on for a few weeks now. It has started to become very oozy and dripping fluid. He has been feeling more and more fatigued. He went to see his primary care for the first time today who asked him to come to the emergency room to be checked out. Patient does not have diabetes. No history of fever or chills. Vital signs were relatively stable. [facility] Past Medical History Narrative Medical List of his past medical, surgical, social and family history reviewed from the nursing note. 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 Reported Meds & Prescriptions Reported Meds & Active Scripts Active Metolazone 2.5 Mg Tab 2.5 Mg PO DAILY Potassium Chloride Microencaps 20 Meq Tab 20 Meq PO BID Lisinopril 20 Mg Tab 20 Mg PO DAILY Aspirin Low Dose (Aspirin) 81 Mg Chew 81 Mg CHEW DAILY Furosemide 40 Mg Tab 40 Mg PO BID Carvedilol 25 Mg Tab 25 Mg PO BID Narrative Medication List of his home medications reviewed from the nursing note. Review of Systems Except as stated in HPI: all other systems reviewed are Neg Physical Exam Narrative GENERAL: Awake, alert, obese, moderate distress SKIN: Focused skin assessment warm/dry. Extremely foul-smelling with dressing on the left lower extremity. This has significant superficial ulcer after the bandage was taken out. HEAD: Atraumatic. Normocephalic. EYES: Pupils equal and round. No scleral icterus. No injection or drainage. Pale ENT: No nasal bleeding or discharge. Mucous membranes pink and moist. NECK: Trachea midline. No JVD. CARDIOVASCULAR: Regular rate and rhythm. No murmur appreciated. RESPIRATORY: No accessory muscle use. Clear to auscultation. Breath sounds equal bilaterally. GASTROINTESTINAL: Abdomen soft, non-tender, nondistended. Hepatic and splenic margins not palpable. MUSCULOSKELETAL: No obvious deformities. No clubbing. No cyanosis. No edema. NEUROLOGICAL: Awake and alert. No obvious cranial nerve deficits. Motor grossly within normal limits. Normal speech. PSYCHIATRIC: Appropriate mood and affect; insight and judgment normal. Data Data Last Documented VS Vital Signs Date Time Temp Pulse Resp B/P Pulse Ox O2 Delivery O2 Flow Rate FiO2 04/16/17 19:24 97.8 94 16 126/66 100 Room Air Orders Complete Blood Count With Diff (04/16/17 17:19) Wound Culture And Gram Stain (04/16/17 17:19) Blood Culture (04/16/17 17:19) Lactic Acid (04/16/17 17:19) Comprehensive Metabolic Panel (04/16/17 17:19) Cta Runoff W Iv Contrast W 3d (04/16/17 ) Piperacil-Tazo 4.5 Gm Premix (Zosyn 4.5 (04/16/17 17:30) Vancomycin Inj (Vancomycin Inj) (04/16/17 17:30) Iohexol 350 Inj (Omnipaque 350 Inj) (04/16/17 20:24) Morphine Inj (Morphine Inj) (04/16/17 22:00) Ondansetron Inj (Zofran Inj) (04/16/17 22:00) Admit Order (Ed Use Only) (04/16/17 22:05) Labs Laboratory Tests Test 04/16/17 17:45 White Blood Count 8.1 TH/MM3 Red Blood Count 5.72 MIL/MM3 Hemoglobin 14.2 GM/DL Hematocrit 43.6 % Mean Corpuscular Volume 76.2 FL Mean Corpuscular Hemoglobin 24.8 PG Mean Corpuscular Hemoglobin 32.5 % Concent Red Cell Distribution Width 20.7 % Platelet Count 451 TH/MM3 Mean Platelet Volume 9.0 FL Neutrophils (%) (Auto) 57.3 % Lymphocytes (%) (Auto) 29.0 % Monocytes (%) (Auto) 11.2 % Eosinophils (%) (Auto) 1.7 % Basophils (%) (Auto) 0.8 % Neutrophils # (Auto) 4.7 TH/MM3 Lymphocytes # (Auto) 2.4 TH/MM3 Monocytes # (Auto) 0.9 TH/MM3 Eosinophils # (Auto) 0.1 TH/MM3 Basophils # (Auto) 0.1 TH/MM3 CBC Comment DIFF FINAL Differential Comment Sodium Level 134 MEQ/L Potassium Level 3.3 MEQ/L Chloride Level 93 MEQ/L Carbon Dioxide Level 35.7 MEQ/L Anion Gap 5 MEQ/L Blood Urea Nitrogen 19 MG/DL Creatinine 0.95 MG/DL Estimat Glomerular Filtration 101 ML/MIN Rate Random Glucose 83 MG/DL Lactic Acid Level 0.9 mmol/L Calcium Level 9.8 MG/DL Total Bilirubin 0.6 MG/DL Aspartate Amino Transf 44 U/L (AST/SGOT) Alanine Aminotransferase 28 U/L (ALT/SGPT) Alkaline Phosphatase 207 U/L Total Protein 9.6 GM/DL Albumin 2.8 GM/DL MDM Medical Decision Making Medical Screen Exam Complete: Yes Emergency Medical Condition: Yes Medical Record Reviewed: Yes Differential Diagnosis Peripheral vascular disease, nonhealing ulcer, cellulitis Narrative Course 7:22 PM awaiting for the CT scan to look at his circulation. Case was signed out to the oncoming ER physician. In my opinion this patient should be admitted for wound care and treatment of infection. Procedures EKG Prior to Arrival: Lexi Martin MD Apr 16, 2017 19:23
[2017-04-16 19:24] VITALS: BP 126/66; PULSE 94; RESP 16; TEMP 97.8; O2SAT 100
--- NOTE | 2017-04-16 19:30 | PD ---
Physical Exam Date Seen by Provider: Apr 16, 2017 Time Seen by Provider: 19:28 Narrative The patient is a 52-year-old male who was initially evaluated by the previous physician, Dr. Arora. Please refer to the initial history, physical, diagnostic evaluation, and treatment modality plan. The patient was signed out at 7 PM laboratory evaluation and CTA pending. Data Data Last Documented VS Vital Signs Date Time Temp Pulse Resp B/P Pulse Ox O2 Delivery O2 Flow Rate FiO2 04/16/17 19:24 97.8 94 16 126/66 100 Room Air Orders Complete Blood Count With Diff (04/16/17 17:19) Wound Culture And Gram Stain (04/16/17 17:19) Blood Culture (04/16/17 17:19) Lactic Acid (04/16/17 17:19) Comprehensive Metabolic Panel (04/16/17 17:19) Cta Runoff W Iv Contrast W 3d (04/16/17 ) Piperacil-Tazo 4.5 Gm Premix (Zosyn 4.5 (04/16/17 17:30) Vancomycin Inj (Vancomycin Inj) (04/16/17 17:30) Iohexol 350 Inj (Omnipaque 350 Inj) (04/16/17 20:24) Morphine Inj (Morphine Inj) (04/16/17 22:00) Ondansetron Inj (Zofran Inj) (04/16/17 22:00) Admit Order (Ed Use Only) (04/16/17 22:05) Labs Laboratory Tests Test 04/16/17 17:45 White Blood Count 8.1 TH/MM3 Red Blood Count 5.72 MIL/MM3 Hemoglobin 14.2 GM/DL Hematocrit 43.6 % Mean Corpuscular Volume 76.2 FL Mean Corpuscular Hemoglobin 24.8 PG Mean Corpuscular Hemoglobin 32.5 % Concent Red Cell Distribution Width 20.7 % Platelet Count 451 TH/MM3 Mean Platelet Volume 9.0 FL Neutrophils (%) (Auto) 57.3 % Lymphocytes (%) (Auto) 29.0 % Monocytes (%) (Auto) 11.2 % Eosinophils (%) (Auto) 1.7 % Basophils (%) (Auto) 0.8 % Neutrophils # (Auto) 4.7 TH/MM3 Lymphocytes # (Auto) 2.4 TH/MM3 Monocytes # (Auto) 0.9 TH/MM3 Eosinophils # (Auto) 0.1 TH/MM3 Basophils # (Auto) 0.1 TH/MM3 CBC Comment DIFF FINAL Differential Comment Sodium Level 134 MEQ/L Potassium Level 3.3 MEQ/L Chloride Level 93 MEQ/L Carbon Dioxide Level 35.7 MEQ/L Anion Gap 5 MEQ/L Blood Urea Nitrogen 19 MG/DL Creatinine 0.95 MG/DL Estimat Glomerular Filtration 101 ML/MIN Rate Random Glucose 83 MG/DL Lactic Acid Level 0.9 mmol/L Calcium Level 9.8 MG/DL Total Bilirubin 0.6 MG/DL Aspartate Amino Transf 44 U/L (AST/SGOT) Alanine Aminotransferase 28 U/L (ALT/SGPT) Alkaline Phosphatase 207 U/L Total Protein 9.6 GM/DL Albumin 2.8 GM/DL [facility] Medical Record Reviewed: Yes Supervised Visit with HERVE: No Interpretation(s) CTA reveals atherosclerotic changes but no significant narrowing or occlusion. Cholelithiasis. Diverticulosis but no diverticulitis. Laboratory Tests Test 04/16/17 17:45 White Blood Count 8.1 TH/MM3 Red Blood Count 5.72 MIL/MM3 Hemoglobin 14.2 GM/DL Hematocrit 43.6 % Mean Corpuscular Volume 76.2 FL Mean Corpuscular Hemoglobin 24.8 PG Mean Corpuscular Hemoglobin 32.5 % Concent Red Cell Distribution Width 20.7 % Platelet Count 451 TH/MM3 Mean Platelet Volume 9.0 FL Neutrophils (%) (Auto) 57.3 % Lymphocytes (%) (Auto) 29.0 % Monocytes (%) (Auto) 11.2 % Eosinophils (%) (Auto) 1.7 % Basophils (%) (Auto) 0.8 % Neutrophils # (Auto) 4.7 TH/MM3 Lymphocytes # (Auto) 2.4 TH/MM3 Monocytes # (Auto) 0.9 TH/MM3 Eosinophils # (Auto) 0.1 TH/MM3 Basophils # (Auto) 0.1 TH/MM3 CBC Comment DIFF FINAL Differential Comment Sodium Level 134 MEQ/L Potassium Level 3.3 MEQ/L Chloride Level 93 MEQ/L Carbon Dioxide Level 35.7 MEQ/L Anion Gap 5 MEQ/L Blood Urea Nitrogen 19 MG/DL Creatinine 0.95 MG/DL Estimat Glomerular Filtration 101 ML/MIN Rate Random Glucose 83 MG/DL Lactic Acid Level 0.9 mmol/L Calcium Level 9.8 MG/DL Total Bilirubin 0.6 MG/DL Aspartate Amino Transf 44 U/L (AST/SGOT) Alanine Aminotransferase 28 U/L (ALT/SGPT) Alkaline Phosphatase 207 U/L Total Protein 9.6 GM/DL Albumin 2.8 GM/DL Differential Diagnosis Differential diagnosis includes cellulitis, gangrene, PVD, PAD, osteomyelitis, abscess, infected wound. Narrative Course The patient was initially evaluated by the previous physician, Dr. Arora. Please refer to the initial history, physical, diagnostic evaluation, treatment modality plan. The patient was signed out at 7 PM with laboratory evaluation and CT pending. The patient's labs are unremarkable, CTA reveals atherosclerotic changes but no significant stenosis. Evaluation of the left lower extremity does reveal circumferential open wound with a foul odor and some weeping from the wound. The patient will benefit from evaluation by accounting software specialist for dressings and possible antibiotics to cover for pseudomonas. He denies any history of diabetes, however, the wound does have a foul smell. The patient was covered with Zosyn and vancomycin by the previous physician, Dr. Arora. The patient is currently followed at this area clinic, therefore, the on-call medical service was paged for 23 hour observation. Physician Communication Physician Communication The on-call medical service was paged for 23 hour observation. I discussed the patient Dr. Allen who agrees with 23 hour observation. Diagnosis Primary Impression: Cellulitis of left lower extremity Admitting Information Admitting Physician Requests: Observation Condition: Stable Dave Looney MD Apr 16, 2017 19:30
[2017-04-16] MEDS ORDERED: IOHEXOL 350 MG/ML 10 ML VIAL (for RAD DIAG) IV ONE (20:24)
--- NOTE | 2017-04-16 21:53 | RADRPT ---
EXAM DATE/TIME: 04/16/2017 20:15 [place] COMPARISON: No previous studies available for comparison. INDICATIONS : Occlusion pain right leg. IV CONTRAST: 94 cc Omnipaque 350 (iohexol) IV RADIATION DOSE: 10.57 CTDIvol (mGy) MEDICAL HISTORY : Cardiovascular disease. Hypertension. Hernia, umbilical.CHF SURGICAL HISTORY : Hernia ENCOUNTER: Initial ACUITY: 1 day PAIN SCALE: 10/10 LOCATION: Right Runoff TECHNIQUE: Volumetric scanning was performed using a multi-row detector CT scanner. The data was post processed with a variety of visualization algorithms including full volume maximum intensity projection, multi -planar sliding thin slab reformation, curved planar reformation, and surface rendering techniques. Using automated exposure control and adjustment of the mA and/or kV according to patient size, radiat ion dose was kept as low as reasonably achievable to obtain optimal diagnostic quality images. DICO M format image data is available electronically for review and comparison. FINDINGS: ABDOMINAL AORTA: Atherosclerotic changes without aneurysmal dilation. The proximal celiac and superior mesenteric art eries are patent and normal in diameter. There are solitary renal arteries bilaterally without gross abnormality. BIFURCATION: Normal. RIGHT PELVIS: The right common iliac, internal iliac, and external iliac vessels are patent without luminal irregul arity. LEFT PELVIS: The left common iliac, internal iliac, and external iliac vessels are patent and without luminal irre gularity. RIGHT THIGH: The superficial femoral and profunda vessels are patent without luminal irregularity. LEFT THIGH: The superficial femoral and profunda vessels are patent without luminal irregularity. RIGHT KNEE: The distal femoral and popliteal arteries are patent without luminal irregularity. LEFT KNEE: The distal femoral and popliteal arteries are patent without luminal irregularity. RIGHT LEG: The trifurcation demonstrates some atherosclerotic changes with multifocal areas of mild narrowing. LEFT LEG: The trifurcation demonstrates atherosclerotic changes with multifocal areas of mild narrowing. CONCLUSION: 1. Atherosclerotic changes with areas of mild narrowing at the trifurcation of the distal legs but no significant stenosis or occlusion. 2. Cholelithiasis. 3. Diverticulosis without diverticulitis. Clyde Russell MD on April 16, 2017 at 21:46 Board Certified Radiologist. This report was verified electronically.
[2017-04-16] MEDS ORDERED: MORPHINE SULFATE 4 MG/ML INJ IV PUSH ONE (22:00)
[2017-04-16] MEDS ORDERED: ONDANSETRON HCL 4 MG/2 ML VIAL IV PUSH ONE (22:00)
[2017-04-16] MEDS ORDERED: Vancomycin Consult Pharmacy 1 EA OTHER SCH (22:30)
[2017-04-16] MEDS ORDERED: NALOXONE HCL 0.4 MG/ML AMP IV PRN (22:30)
[2017-04-16] MEDS ORDERED: SODIUM CHLORIDE 0.9% FLUSH 10 ML FLUSH IV FLUSH PRN (22:30)
[2017-04-16 23:37] VITALS: BP 122/73; PULSE 102; RESP 20; O2SAT 97
[2017-04-17] VITALS (10 sets, daily range): BP systolic 127–144; BP diastolic 66–87; PULSE 85–103; RESP 18–20; TEMP 96.1–98.9; O2SAT 92–95
[2017-04-17] MEDS: PIPERACIL-TAZO 4.5 GM PREMIX 100 ML IV SCH ×4 (02:17→20:20)
[2017-04-17] MEDS ORDERED: ACETAMINOPHEN/HYDROcodone 325 MG/5 MG TAB PO ONE (03:15)
[2017-04-17] MEDS ORDERED: VANCOMYCIN INJ 1,700 MG in SODIUM CHLORID 0.9% 500 ML INJ 500 ML IV SCH (04:00)
--- NOTE | 2017-04-17 06:44 | HHI.HP ---
HPI Service [facility] Primary Care Physician Unknown Admission Diagnosis left lower extremity cellulitis, infected wound Diagnoses: Travel History International Travel<30 Days: No Contact w/Intl Traveler <30 Da: No Traveled to Known Affected Are: No History of Present Illness History from patient, ER physician to medication, and review of medical records. Patient reported that he came to the hospital because his left lower extremity ulcers have been getting worse and worse. He reports that this has been going on for the past 1 month. He denies being on antibiotics. He reports he was receiving wound care services up until about 2 years ago. After this, due to his insurance changes, he was lost to follow-up with the wound care service. He denies any fever. Denies any history of diabetes. But reports of history of CHF for which he was getting lower extremity swellings. Denies history of PAD. He reports he used to smoke for about 15 years, a pack a week, and quit about 10 years ago. Apart from the above, patient denies any recent fever/nausea/vomiting/diarrhea/ urinary burning or pain on urination. Denies any hematemesis/hematochezia/melena/hematuria. Review of Systems Except as stated in HPI: all other systems reviewed are Neg Past Family Social History Past Medical History htn chf sinus problems Past Surgical History hernia sx as a kid Allergies: Coded Allergies: Dairy (Verified Allergy, Severe, 03/28/17) Milk (Verified Adverse Reaction, Severe, 03/28/17) GI UPSET Family History mother- heart problems Social History no drinking etoh smokes but quit 10yrs ago Physical Exam Vital Signs Vital Signs Date Time Temp Pulse Resp B/P Pulse Ox O2 Delivery O2 Flow Rate FiO2 04/17/17 05:59 100 04/17/17 04:26 98.0 101 18 134/71 92 04/17/17 00:27 98.9 102 18 142/82 95 04/16/17 23:37 102 20 122/73 97 Room Air 04/16/17 19:24 97.8 94 16 126/66 100 Room Air 04/16/17 18:34 93 21 123/69 92 Room Air 04/16/17 13:09 98.2 89 15 137/89 98 Physical Exam GENERAL: This is a well-nourished, well-developed patient, in no apparent distress. HEAD: Atraumatic. Normocephalic. No temporal or scalp tenderness. EYES: No scleral icterus. No injection or drainage. ENT: Nose without bleeding, purulent drainage or septal hematoma.. Airway patent. NECK: Trachea midline. No JVD CARDIOVASCULAR: Regular rate and rhythm without murmurs, gallops, or rubs. RESPIRATORY: Clear to auscultation. Breath sounds equal bilaterally. No wheezes , rales, or rhonchi. GASTROINTESTINAL: Abdomen soft, non-tender, nondistended. . No guarding. MUSCULOSKELETAL: Extremities without clubbing, cyanosis. Bilateral lower extremity pitting edema 3+ left worse than the right. Left lower extremity with chronic weeping edema and discharge. NEUROLOGICAL: Awake and alert. Motor and sensory grossly within normal limits. Normal speech. Laboratory Laboratory Tests Test 04/16/17 17:45 White Blood Count 8.1 Red Blood Count 5.72 Hemoglobin 14.2 Hematocrit 43.6 Mean Corpuscular Volume 76.2 Mean Corpuscular Hemoglobin 24.8 Mean Corpuscular Hemoglobin 32.5 Concent Red Cell Distribution Width 20.7 Platelet Count 451 Mean Platelet Volume 9.0 Neutrophils (%) (Auto) 57.3 Lymphocytes (%) (Auto) 29.0 Monocytes (%) (Auto) 11.2 Eosinophils (%) (Auto) 1.7 Basophils (%) (Auto) 0.8 Neutrophils # (Auto) 4.7 Lymphocytes # (Auto) 2.4 Monocytes # (Auto) 0.9 Eosinophils # (Auto) 0.1 Basophils # (Auto) 0.1 CBC Comment DIFF FINAL Differential Comment Sodium Level 134 Potassium Level 3.3 Chloride Level 93 Carbon Dioxide Level 35.7 Anion Gap 5 Blood Urea Nitrogen 19 Creatinine 0.95 Estimat Glomerular Filtration 101 Rate Random Glucose 83 Lactic Acid Level 0.9 Calcium Level 9.8 Total Bilirubin 0.6 Aspartate Amino Transf 44 (AST/SGOT) Alanine Aminotransferase 28 (ALT/SGPT) Alkaline Phosphatase 207 Total Protein 9.6 Albumin 2.8 Date/Time Procedure Status Source Growth 04/16/17 17:45 Gram Stain Received Wound Leg Pending 04/16/17 17:45 Wound Culture Received Wound Leg Pending 04/16/17 17:45 Aerobic Blood Culture Received Blood Peripheral Pending 04/16/17 17:45 Anaerobic Blood Culture Received Blood Peripheral Pending Result Diagram: 04/16/17 1745 04/16/17 1745 Imaging Last 48 hours Impressions Aorta w/Runoff CTA 04/16/17 0000 Signed Impressions: Service Date/Time: Sunday, April 16, 2017 20:15 - CONCLUSION: 1. Atherosclerotic changes with areas of mild narrowing at the trifurcation of the distal legs but no significant stenosis or occlusion. 2. Cholelithiasis. 3. Diverticulosis without diverticulitis. Clyde Russell MD Assessment and Plan Assessment and Plan Impression: Left lower extremity nonhealing chronic venous stasis woundsexacerbated by edema from CHF Hypokalemiadue to diuretic use Metabolic alkalosisfrom diuretic use. htn chf sinus problems Plan: Really, in this patient, he needs outpatient set up with PCP and wound care service. Have therefore consulted wound care physician and case management for arrangement of this. Patient received vancomycin, and Zosyn in ER. At present I would continue the above antibiotics and follow for clinical response. Resume home meds. DVT prophylaxison Daniel Stephenson MD Apr 17, 2017 06:44
[2017-04-17] MEDS ORDERED: FUROSEMIDE 40 MG TAB PO SCH (09:00)
[2017-04-17] MEDS ORDERED: POTASSIUM CHLORIDE 20 MEQ CONTROLLED RELEASE TAB PO SCH (09:00)
[2017-04-17] MEDS: SODIUM CHLORIDE 0.9% FLUSH 10 ML FLUSH IV FLUSH SCH ×2 (09:00→20:20)
[2017-04-17] MEDS: LISINOPRIL 20 MG TAB PO SCH (09:30)
[2017-04-17] MEDS: ASPIRIN 81 MG CHEW TAB CHEW SCH (09:30)
[2017-04-17] MEDS: CARVEDILOL 12.5 MG TAB PO SCH ×2 (09:30→20:20)
[2017-04-17] MEDS: ENOXAPARIN SODIUM 40 MG/0.4 ML SYRINGE SQ SCH (09:31)
[2017-04-17 10:14] LABS: AUTOMATED NEUTROPHIL # 5.9 TH/MM3 (1.8-7.7); BASOPHIL % 0.5 % (0.0-2.0); EOSINOPHIL # 0.1 TH/MM3 (0-0.4); EOSINOPHIL % 1.3 % (0.0-4.0); HEMATOCRIT 44.3 % (39.0-51.0); HEMO FLAGS DIFF FINAL; LYMPH % 23.9 % (9.0-44.0); LYMPHOCYTE # 2.2 TH/MM3 (1.0-4.8); MEAN CELL VOLUME 76.1 FL (80.0-100.0); MEAN CORPUSCULAR HEMOGLOBIN 25.2 PG (27.0-34.0); MEAN CORPUSCULAR HGB CONC 33.1 % (32.0-36.0); MONO % 10.6 % (0.0-8.0); NEUT % 63.7 % (16.0-70.0); PLATELET COUNT 407 TH/MM3 (150-450); RED BLOOD COUNT 5.82 MIL/MM3 (4.50-5.90); RED CELL DISTRIBUTION WIDTH 20.2 % (11.6-17.2); WHITE BLOOD COUNT 9.2 TH/MM3 (4.0-11.0)
[2017-04-17] MEDS: METOLAZONE 2.5 MG TAB PO SCH (10:25)
[2017-04-17 11:08] LABS: BICARBONATE 32.5 MEQ/L (21.0-32.0); POTASSIUM 3.2 MEQ/L (3.5-5.1)
--- NOTE | 2017-04-17 11:36 | PD.POD.CON ---
Patient Intake Chief Complaint Venous stasis wounds left leg Consult Requested by Dr. Allen Reason for Consult Evaluation and treatment of wounds left leg Primary Care Physician Unknown History of Present Illness Patient is a 52-year-old male with venous insufficiency and CHF who has had chronic reoccurring wounds of the left lower extremity. The follow with Dr. Del Rio at the [facility] but has not been seen for a few years because of lack of insurance. He presented to for admission because the wounds are getting worse with odor and drainage. Coded Allergies: Dairy (Verified Allergy, Severe, 03/28/17) Milk (Verified Adverse Reaction, Severe, 03/28/17) GI UPSET Preferred Language to Discuss: Wolof Barriers to Learning: None Teaching Method: Discussion Vital Signs Date Time Temp Pulse Resp B/P Pulse Ox O2 Delivery O2 Flow Rate FiO2 04/17/17 08:00 96.1 103 18 128/87 92 04/17/17 05:59 100 04/17/17 04:26 98.0 101 18 134/71 92 04/17/17 00:27 98.9 102 18 142/82 95 04/16/17 23:37 102 20 122/73 97 Room Air 04/16/17 19:24 97.8 94 16 126/66 100 Room Air 04/16/17 18:34 93 21 123/69 92 Room Air 04/16/17 13:09 98.2 89 15 137/89 98 Pain scale used: 0-10 numeric scale Pain score: 3 Medications Current Medications Piperacillin Sod/ Tazobactam Sod 100 ml @ 200 mls/hr ONCE ONCE IV Last administered on 04/16/17 19:45; Start 04/16/17 at 17:30; Stop 04/16/17 at 17:59 ; Status DC Vancomycin HCl/ Sodium Chloride (Vancomycin Inj/ NS 250 ml Inj) 250 ml @ 250 mls/hr ONCE ONCE IV Last administered on 04/16/17 18:33; Start 04/16/17 at 17 :30; Stop 04/16/17 at 18:29; Status DC Iohexol (Omnipaque 350 Inj) 94 ml STK-MED ONCE IV Last administered on 20:24; Start 04/16/17 at 20:24; Stop 04/16/17 at 20:25; Status DC Morphine Sulfate (Morphine Inj) 4 mg ONCE ONCE IV PUSH Last administered on 22:08; Start 04/16/17 at 22:00; Stop 04/16/17 at 22:01; Status DC Ondansetron HCl (Zofran Inj) 4 mg ONCE ONCE IV PUSH Last administered on 22:30; Start 04/16/17 at 22:00; Stop 04/16/17 at 22:01; Status DC Sodium Chloride (NS Flush) 2 ml UNSCH PRN IV FLUSH FLUSH AFTER USING IV ACCESS ; Start 04/16/17 at 22:30 Sodium Chloride (NS Flush) 2 ml BID IV FLUSH Last administered on 04/17/17 09: 00; Start 04/17/17 at 09:00 Naloxone HCl 0.4 mg 0.4 mg UNSCH PRN IV SEE LABEL COMMENTS; Start 04/16/17 at 22:30 Pharmacy Profile Note 0 ml @ 0 mls/hr UNSCH OTHER ; Start 04/16/17 at 22:30 Piperacillin Sod/ Tazobactam Sod 100 ml @ 200 mls/hr Q6H IV Last administered on 04/17/17 09:30; Start 04/17/17 at 02:00 Vancomycin HCl/ Sodium Chloride (Vancomycin Inj/ NS 500 ml Inj) 517 ml @ 250 mls/hr DAILY@04 IV Last administered on 04/17/17 03:56; Start 04/17/17 at 04: 00; Stop 04/17/17 at 07:00; Status DC Acetaminophen/ Hydrocodone Bitart ([place] 5-325 Mg) 1 tab ONCE ONCE PO Last administered on 04/17/17 03:56; Start 04/17/17 at 03:15; Stop 04/17/17 at 03:16 ; Status DC Enoxaparin Sodium (Lovenox Inj) 40 mg Q24H SQ Last administered on 04/17/17 09 :31; Start 04/17/17 at 09:00 Aspirin (Aspirin Chew) 81 mg DAILY CHEW Last administered on 04/17/17 09:30; Start 04/17/17 at 09:00 Carvedilol (Coreg) 25 mg BID PO Last administered on 04/17/17 09:30; Start at 09:00 Furosemide (Lasix) 40 mg BIDPC PO Last administered on 04/17/17 09:30; Start 04/17/17 at 09:00 Lisinopril (Prinivil) 20 mg DAILY PO Last administered on 04/17/17 09:30; Start 04/17/17 at 09:00 Metolazone (Zaroxolyn) 2.5 mg DAILY PO Last administered on 04/17/17 10:25; Start 04/17/17 at 09:00 Potassium Chloride (KCl) 20 meq BID PO Last administered on 04/17/17 09:32; Start 04/17/17 at 09:00 Past, Family & Social History Past Medical History HEENT: DENIES HX OF: Cataracts, Glaucoma, Recurrent ear infections, Recurrent sinusitis, Other HEENT history Endocrine: DENIES HX OF: Diabetes mellitus, Graves disease, Hyperthyroidism, Hypothyroidism, Other endocrine history Respiratory: DENIES HX OF: Allergies/hay fever, Asthma, COPD, CPAP use, Sleep apnea, Other respiratory history Cardiovascular: REPORTS HX OF: Heart failure, Hypertension, DENIES HX OF: Abdominal aortic aneurysm, Angina, Atrial fibrillation, Cardiac arrhythmias, Coronary artery disease, Deep venous thrombosis, Heart valve disease, Hyperlipidemia, Myocardial infarction, Peripheral vascular dz, Other CV history Gastrointestinal: DENIES HX OF: Colitis, GERD, Irritable bowel syndrome, Liver disease, Pancreatitis, Peptic ulcer disease, Other GI history Genitourinary: DENIES HX OF: Chlamydia, Gonorrhea, Hemodialysis, Herpes genitalis, Human papillomavirus, Kidney disease, Kidney failure, Kidney stones, Past UTI, Peritoneal dialysis, Urinary incontinence, Other history Genitourinary - Male: DENIES HX OF: Benign prost. hyperplasia, Erectile dysfunction, Prostatitis, Testicular problems, Undescended testicle Musculoskeletal: DENIES HX OF: Fibromyalgia, Fractures, Gout, Osteoarthritis, Osteoporosis, Rheumatoid arthritis, Other musculoskeletal hx Cancer/Hematology: DENIES HX OF: Anemia, Bladder Cancer, Blood cancer, Brain cancer, Breast cancer, Colorectal cancer, Endocrine cancer, Eye cancer, GI cancer, cancer, Kidney cancer, Leukemia, Liver cancer, Lung cancer, Lymphoma , Musculoskeletal cancer, Neurologic cancer, Oral cancer, Skin cancer, Stomach cancer, Thyroid cancer, Other cancer/hematology Infectious Disease: DENIES HX OF: AIDS, Chickenpox, Hepatitis, HIV, Measles, MRSA, Mumps, Polio, Positive PPD, Rheumatic fever, Rubella, Syphilis, Tuberculosis, Vanc-resistant enterococc, Other inf disease history Past Surgical History HEENT: DENIES HX OF: Cataract extraction, Dental surgery, Laryngectomy, Tonsillectomy, Other head surgery, Other eye surgery, Other ear surgery, Other nasal surgery, Other throat surgery Endocrine: DENIES HX OF: Parathyroidectomy, Thyroid surgery, Other endocrine surgery Respiratory: DENIES HX OF: Bronchoscopy, Lobectomy, Other chest surgery Cardiovascular: DENIES HX OF: Angiogram, Angioplasty, CABG surgery, Carotid endarterectomy, Coronary stent, Heart transplant, Pacemaker, Valve replacement, Other cardiac surgery Gastrointestinal: REPORTS HX OF: Hernia repair (umbilical) Family Medical History Hypertension Social History Social History: Adopted: No Substance Use Substance Use: Denies use Any/Confucianism Any Tradition/Confucianism: Mu-Ism Review of Systems Constitutional: DENIES: Good general health Eyes: DENIES: Blurred/Double vision, Hx eye disease Ears/Nose/Mouth/Throat: DENIES: Ringing in ears, Change in hearing, Deafness/ hearing aid, Sore throat, Trouble swallowing Cardiovascular: COMPLAINS OF: Swelling legs / ankles Respiratory: DENIES: Frequent colds, Difficulty breathing, Cough (productive?) , Asthma / hay fever, Emphysema, TB Gastrointestinal: DENIES: Heartburn, Vomiting, Constipation, Diarrhea, Black Stools, Blood in stools, Peptic ulcer, Abdominal pain Genitourinary: DENIES: Renal disease, Dialysis, Freq or burning urination, Blood in urine, Difficulty in urination, Incontinence Musculoskeletal: DENIES: Leg pain (rest or walk), Back pain, Joint pain/swell/ dysarthr, Deformaties Integumentary: DENIES: Rash, Hx masses/lumps, Birthmrk/wart/lump/nodule, Slow to heal after cuts, Bleeding/bruising tendncy Neurological: DENIES: CVA/Stroke, Spinal Cord Injury, Seizures, Tremors, Numbness/tingling, Changes in sensation, Difficulty with balance Psychiatric: DENIES: Depression/anxiety, Change in memory, Insomnia Endocrine: DENIES: Thyroid disease, Heat/cold intolerance, Excessive thirst Hematologic/Lymphatic: DENIES: Blood borne disease, Anemia, Blood abnormalities Allergic/Immunologic: DENIES: Rheumatoid Arthritis, Skin/Food/Drug reaction, Lupus, Sickle Cell disease, Scleroderma, Vasculitis Exam-Podiatry Constitutional General appearance: comfortable Orientation: alert and oriented x3 Dermatological Exam Skin Temp - Right: Within Normal Limits Skin Texture - Right: Within Normal Limits Skin Elasticity - Right: Within Normal Limits Skin Tugor - Right: Within Normal Limits Hair Growth - Right: Within Normal Limits Pigmentation - Right: Within Normal Limits Skin Temp - Left: Within Normal Limits Skin Texture - Left: Within Normal Limits Skin Elasticity - Left: Within Normal Limits Skin Tugor - Left: Within Normal Limits Hair Growth - Left: Within Normal Limits Pigmentation - Left: Within Normal Limits Ulcers: Location/Measurements Multiple large ulcerations of the left leg with necrotic tissue and purulent drainage. Wounds do not go deep to muscle or bone. They have moderate fibrin formation. Vascular/Lymphatic Exam R Dorsails Pedis: Palpable L Dorsails Pedis: Palpable R Posterior Tibial: Palpable L Posterior Tibial: Palpable Neurologic Exam Details No neurological deficits seen Muscle Strength Dorsiflexion (Right): Normal Plantarflexion (Right): Normal Inversion (Right): Normal Eversion (Right): Normal Digital (Right): Normal Dorsiflexion (Left): Normal Plantarflexion (Left): Normal Inversion (Left): Normal Eversion (Left): Normal Digital (Left): Normal Foot Range of Motion Dorsiflexion (Right): Normal Plantarflexion (Right): Normal Inversion (Right): Normal Eversion (Right): Normal Digital (Right): Normal Dorsiflexion (Left): Normal Plantarflexion (Left): Normal Inversion (Left): Normal Eversion (Left): Normal Digital (Left): Normal Extremities Edema: Left lower extremity: 3+, pitting, foot, ankle, leg Right lower extremity: pitting, foot, ankle, leg Wound Assessment Wound Information - Wound One Wound Location: left medial leg Wound Two Wound Location: Left anterior leg Wound Three Wound Location: Left anterior lateral leg Lab and Radiology Results Laboratory Laboratory Tests Test 04/16/17 04/17/17 17:45 09:52 White Blood Count 8.1 TH/MM3 9.2 TH/MM3 Red Blood Count 5.72 MIL/MM3 5.82 MIL/MM3 Hemoglobin 14.2 GM/DL 14.7 GM/DL Hematocrit 43.6 % 44.3 % Mean Corpuscular Volume 76.2 FL 76.1 FL Mean Corpuscular Hemoglobin 24.8 PG 25.2 PG Mean Corpuscular Hemoglobin 32.5 % 33.1 % Concent Red Cell Distribution Width 20.7 % 20.2 % Platelet Count 451 TH/MM3 407 TH/MM3 Mean Platelet Volume 9.0 FL 8.7 FL Neutrophils (%) (Auto) 57.3 % 63.7 % Lymphocytes (%) (Auto) 29.0 % 23.9 % Monocytes (%) (Auto) 11.2 % 10.6 % Eosinophils (%) (Auto) 1.7 % 1.3 % Basophils (%) (Auto) 0.8 % 0.5 % Neutrophils # (Auto) 4.7 TH/MM3 5.9 TH/MM3 Lymphocytes # (Auto) 2.4 TH/MM3 2.2 TH/MM3 Monocytes # (Auto) 0.9 TH/MM3 1.0 TH/MM3 Eosinophils # (Auto) 0.1 TH/MM3 0.1 TH/MM3 Basophils # (Auto) 0.1 TH/MM3 0.0 TH/MM3 CBC Comment DIFF FINAL DIFF FINAL Differential Comment Laboratory Tests Test 04/16/17 7 17:45 09:52 Sodium Level 134 MEQ/L 139 MEQ/L Potassium Level 3.3 MEQ/L 3.2 MEQ/L Chloride Level 93 MEQ/L 96 MEQ/L Carbon Dioxide Level 35.7 MEQ/L 32.5 MEQ/L Anion Gap 5 MEQ/L 11 MEQ/L Blood Urea Nitrogen 19 MG/DL 15 MG/DL Creatinine 0.95 MG/DL 0.90 MG/DL Estimat Glomerular Filtration 101 ML/MIN 107 ML/MIN Rate Random Glucose 83 MG/DL 95 MG/DL Lactic Acid Level 0.9 mmol/L Calcium Level 9.8 MG/DL 9.7 MG/DL Total Bilirubin 0.6 MG/DL Aspartate Amino Transf 44 U/L (AST/SGOT) Alanine Aminotransferase 28 U/L (ALT/SGPT) Alkaline Phosphatase 207 U/L Total Protein 9.6 GM/DL Albumin 2.8 GM/DL Microbiology Date/Time Procedure Status Source Growth 04/16/17 17:45 Aerobic Blood Culture - Preliminary Resulted Blood Peripheral NO GROWTH IN 1 DAY 04/16/17 17:45 Anaerobic Blood Culture - Preliminary Resulted Blood Peripheral NO GROWTH IN 1 DAY 04/16/17 17:45 Aerobic Blood Culture - Preliminary Resulted Blood Peripheral NO GROWTH IN 1 DAY 04/16/17 17:45 Anaerobic Blood Culture - Preliminary Resulted Blood Peripheral NO GROWTH IN 1 DAY 04/16/17 17:45 Gram Stain - Final Resulted Wound Leg 04/16/17 17:45 Wound Culture Resulted Wound Leg Pending Radiology Last Impressions Aorta w/Runoff CTA 04/16/17 0000 Signed Impressions: Service Date/Time: Sunday, April 16, 2017 20:15 - CONCLUSION: 1. Atherosclerotic changes with areas of mild narrowing at the trifurcation of the distal legs but no significant stenosis or occlusion. 2. Cholelithiasis. 3. Diverticulosis without diverticulitis. Clyde Russell MD Assessment/Plan Problem List: (1) Cellulitis of left lower extremity Status: Acute (2) Acute exacerbation of CHF (congestive heart failure) Status: Acute (3) Venous hypertension, chronic, with ulcer and inflammation Status: Chronic Additional Plans & Procedures PLAN: Ordered Optifoam gentle AG dressings. Instructed patient to decrease his fluid intake. Asked case management to schedule patient for follow-up with me in the wound center after discharge. Will follow Problem Qualifiers (1) Acute exacerbation of CHF (congestive heart failure): Qualified Code: I50.9 - Acute on chronic congestive heart failure, unspecified congestive heart failure type (2) Venous hypertension, chronic, with ulcer and inflammation: Qualified Code: I87.332 - Venous hypertension, chronic, with ulcer and inflammation, left Clyde Ramirez DPM Apr 17, 2017 11:36
[2017-04-17] MEDS ORDERED: ACETAMINOPHEN/HYDROcodone 325 MG/5 MG TAB PO PRN (14:15)
[2017-04-17] MEDS ORDERED: ACETAMINOPHEN 325 MG TAB PO PRN (14:15)
--- NOTE | 2017-04-17 14:56 | HHI.PR ---
Subjective Remarks Follow up for LLE cellulitis/wounds. The patient reports continued LLE pain, edema, drainage. He does believe it is slightly better compared to yesterday. Denies fevers/chills. Objective Vitals Vital Signs Date Time Temp Pulse Resp B/P Pulse Ox O2 Delivery O2 Flow Rate FiO2 04/17/17 12:00 96.1 86 18 144/66 92 04/17/17 09:00 94 04/17/17 08:00 96.1 103 18 128/87 92 04/17/17 05:59 100 04/17/17 04:26 98.0 101 18 134/71 92 04/17/17 00:27 98.9 102 18 142/82 95 04/16/17 23:37 102 20 122/73 97 Room Air 04/16/17 19:24 97.8 94 16 126/66 100 Room Air 04/16/17 18:34 93 21 123/69 92 Room Air Result Diagram: 04/17/17 0952 04/17/17 0952 Imaging Last Impressions Aorta w/Runoff CTA 04/16/17 0000 Signed Impressions: Service Date/Time: Sunday, April 16, 2017 20:15 - CONCLUSION: 1. Atherosclerotic changes with areas of mild narrowing at the trifurcation of the distal legs but no significant stenosis or occlusion. 2. Cholelithiasis. 3. Diverticulosis without diverticulitis. Clyde Russell MD Objective Remarks GENERAL: Well-nourished, well-developed pleasant obese middle aged AA male patient in [facility]. SKIN: Warm and dry. No rash. HEAD: Normocephalic. Atraumatic. EYES: Pupils equal and round. No scleral icterus. No injection or drainage. ENT: No nasal bleeding or discharge. Mucous membranes pink and moist. NECK: Supple. Trachea midline. CARDIOVASCULAR: Regular rate and rhythm. S1, S2 noted. No murmur appreciated. RESPIRATORY: No accessory muscle use. Clear to auscultation. Breath sounds equal bilaterally. GASTROINTESTINAL: Abdomen soft, non-tender, nondistended. Normoactive bowel sounds x4. MUSCULOSKELETAL: No obvious deformities. LLE with 2+ edema, NEUROLOGICAL: Awake and alert. No obvious cranial nerve deficits. Motor grossly within normal limits. 5/5 muscle strength in bilateral upper and lower extremities. Normal speech. PSYCHIATRIC: Appropriate mood and affect; insight and judgment normal. A/P Problem List: (1) Cellulitis of left lower extremity ICD Code: L03.116 Status: Acute (2) Hypokalemia ICD Code: E87.6 Status: Acute Assessment and Plan 52-year-old male with history of CHF EF 25-30%, HTN, and chronic lower extremity edema/wounds, presents with worsening LLE wounds/edema, concern for infection. LLE Cellulitis with Non-healing Wounds: seen by PCP at [facility] in office yesterday, sent to ER for evaluation/treatment of cellulitis. Appears acute cellulitis on chronic wounds. Afebrile, no leukocytosis, lactic acid 0.9. -CTA Aorta w/Runoff shows atherosclerotic changes but no significant stenosis /occlusion -Continue antibiotics with IV Zosyn and IV Vanco with pharmacy consult -Elevate the leg -Wound cultures collected, pending -Blood cultures with NGTD -Pain control with Tylenol and [place] prn -Consult wound care physician Dr. Ramirez, appreciate recommendations -Case management to arrange f/up with Dr. Ramirez in wound center after discharge Chronic Systolic CHF: Echo 01/25/17 with moderate LVH; severely reduced systolic function EF 25-30%. Patient evaluated by cardiology Dr. Castaneda on previous admission January 2017, not a candidate for AICD at that time secondary to noncompliance and needs at least 3months on optimal meds (initiated on that admission). -Continue home meds including aspirin, ACEi, BB, lasix, metolazone -monitor on telemetry Hypertension: chronic, BP fairly well controlled -continue lisinopril and coreg -monitor BP, adjust antihypertensives as needed Hypokalemia: acute, K 3.2, suspect secondary to diuresis -continue po KCl replacement bid -Mag wnl -monitor BMP and replace electrolytes as needed DVT Prophylaxis: Maite Farrar PA-C Apr 17, 2017 2:56 pm
[2017-04-17] MEDS: ACETAMINOPHEN/HYDROcodone 325 MG/7.5 MG TAB PO PRN ×2 (15:39→20:21)
[2017-04-17] MEDS: VANCOMYCIN INJ 1,750 MG in SODIUM CHLORID 0.9% 500 ML INJ 500 ML IV SCH (17:27)
[2017-04-17] MEDS: FUROSEMIDE 40 MG TAB PO SCH (18:32)
[2017-04-17] MEDS: POTASSIUM CHLORIDE 20 MEQ CONTROLLED RELEASE TAB PO SCH (18:33)
[2017-04-18] VITALS (8 sets, daily range): BP systolic 117–153; BP diastolic 72–97; PULSE 83–99; RESP 16–18; TEMP 97.8–99.4; O2SAT 94–97
[2017-04-18] MEDS: VANCOMYCIN INJ 1,750 MG in SODIUM CHLORID 0.9% 500 ML INJ 500 ML IV SCH ×2 (05:12→16:16)
[2017-04-18] MEDS: PIPERACIL-TAZO 4.5 GM PREMIX 100 ML IV SCH ×4 (05:12→20:59)
[2017-04-18] MEDS: FUROSEMIDE 40 MG TAB PO SCH ×2 (09:06→17:31)
[2017-04-18] MEDS: LISINOPRIL 20 MG TAB PO SCH (09:06)
[2017-04-18] MEDS: METOLAZONE 2.5 MG TAB PO SCH (09:06)
[2017-04-18] MEDS: ASPIRIN 81 MG CHEW TAB CHEW SCH (09:06)
[2017-04-18] MEDS: CARVEDILOL 12.5 MG TAB PO SCH ×2 (09:06→20:59)
[2017-04-18] MEDS: POTASSIUM CHLORIDE 20 MEQ CONTROLLED RELEASE TAB PO SCH ×2 (09:06→17:31)
[2017-04-18] MEDS: ENOXAPARIN SODIUM 40 MG/0.4 ML SYRINGE SQ SCH (09:07)
[2017-04-18] MEDS: SODIUM CHLORIDE 0.9% FLUSH 10 ML FLUSH IV FLUSH SCH ×2 (09:07→20:57)
[2017-04-18 09:19] LABS: BICARBONATE 29.7 MEQ/L (21.0-32.0); POTASSIUM 3.1 MEQ/L (3.5-5.1)
[2017-04-18] MEDS ORDERED: POTASSIUM CHLORIDE 20 MEQ CONTROLLED RELEASE TAB PO ONE (11:30)
--- NOTE | 2017-04-18 11:51 | HHI.PR ---
Subjective Remarks Follow up for LLE cellulitis/wounds. The patient reports continued LLE pain however improved compared to yesterday. Wounds currently wrapped in dressings. He does believe the swelling has improved. Denies any fevers/chills. Denies any chest pain or shortness of breath. Discussed transition to po antibiotics and possible discharge today or tomorrow when cleared by podiatry, patient agrees. Instructed he will need to f/up at wound care clinic. Objective Vitals Vital Signs Date Time Temp Pulse Resp B/P Pulse Ox O2 Delivery O2 Flow Rate FiO2 04/18/17 09:58 97.9 85 18 117/72 94 04/18/17 09:05 85 04/18/17 04:06 97.8 92 18 132/75 96 04/17/17 23:49 85 04/17/17 23:10 96.5 86 20 130/77 94 04/17/17 19:56 96.5 88 20 127/72 93 04/17/17 15:14 96.4 92 18 131/76 94 04/17/17 12:00 96.1 86 18 144/66 92 Result Diagram: 04/17/17 0952 04/18/17 0809 Imaging Last Impressions Aorta w/Runoff CTA 04/16/17 0000 Signed Impressions: Service Date/Time: Sunday, April 16, 2017 20:15 - CONCLUSION: 1. Atherosclerotic changes with areas of mild narrowing at the trifurcation of the distal legs but no significant stenosis or occlusion. 2. Cholelithiasis. 3. Diverticulosis without diverticulitis. Clyde Russell MD Objective Remarks GENERAL: Well-nourished, well-developed pleasant obese middle aged AA male patient in [place]. SKIN: Warm and dry. No rash. HEENT: Normocephalic. Atraumatic.Pupils equal and round. Mucous membranes pink and moist. NECK: Supple. Trachea midline. CARDIOVASCULAR: Regular rate and rhythm. S1, S2 noted. No murmur appreciated. RESPIRATORY: No accessory muscle use. Clear to auscultation. Breath sounds equal bilaterally. GASTROINTESTINAL: Abdomen soft, non-tender, nondistended. Normoactive bowel sounds x4. MUSCULOSKELETAL: No obvious deformities. LLE with 2+ edema, left distal tibia region with chronic seeping wound, diffuse edema, mild surrounding erythema, currently covered in dressing, CDI. NEUROLOGICAL: Awake and alert. No obvious cranial nerve deficits. Motor grossly within normal limits. Normal speech. Medications and IVs Current Medications Medications (Trade) Dose Ordered Sig/Michel Route Start Time Stop Time Status Last Admin (NS Flush) 2 ml UNSCH PRN IV FLUSH 04/16/17 22:30 (NS Flush) 2 ml BID IV FLUSH 04/17/17 09:00 04/18/17 09:07 Naloxone HCl 0.4 mg 0.4 mg UNSCH PRN IV 04/16/17 22:30 Pharmacy Profile Note 0 ml @ 0 mls/hr UNSCH OTHER 04/16/17 22:30 (Zosyn 4.5 Gm Premix) 100 ml @ 200 mls/hr Q6H IV 04/17/17 02:00 04/18/17 09:05 (Lovenox Inj) 40 mg Q24H SQ 04/17/17 09:00 04/18/17 09:07 (Aspirin Chew) 81 mg DAILY CHEW 04/17/17 09:00 04/18/17 09:06 (Coreg) 25 mg BID PO 04/17/17 09:00 04/18/17 09:06 (Prinivil) 20 mg DAILY PO 04/17/17 09:00 04/18/17 09:06 Metolazone 2.5 mg 2.5 mg DAILY PO 04/17/17 09:00 04/18/17 09:06 (Vancomycin Inj/ NS 500 ml Inj) 517.5 ml @ 250 mls/hr Q12H IV 04/17/17 16:00 04/18/17 05:12 Miscellaneous Information SPECIFIC LAB TO BE DRAWN:VANCOMYCIN TROUGH DATE TO... ONCE ONCE .XX 04/18/17 15:45 04/18/17 15:46 (Tylenol) 650 mg Q6H PRN PO 04/17/17 14:15 ([place] 5-325 Mg) 1 tab Q4H PRN PO 04/17/17 14:15 ([place] 7.5-325 Mg) 1 tab Q4H PRN PO 04/17/17 14:15 04/17/17 20:21 (Lasix) 40 mg BID@,18 PO 04/17/17 18:00 04/18/17 09:06 (KCl) 20 meq BID@,18 PO 04/17/17 18:00 04/18/17 09:06 A/P Problem List: (1) Cellulitis of left lower extremity ICD Code: L03.116 Status: Acute (2) Hypokalemia ICD Code: E87.6 Status: Acute Assessment and Plan 52-year-old male with history of CHF EF 25-30%, HTN, and chronic lower extremity edema/wounds, presents with worsening LLE wounds/edema, concern for infection. LLE Cellulitis with Non-healing Wounds: seen by PCP at [facility] in office, sent to ER for evaluation/treatment of cellulitis. Appears acute cellulitis on chronic wounds. Afebrile, no leukocytosis, lactic acid 0.9. -CTA Aorta w/Runoff shows atherosclerotic changes but no significant stenosis /occlusion -Continue antibiotics with IV Zosyn and IV Vanco with pharmacy consult -Elevate the leg -Wound cultures with group A strep and staphylococcus species -Blood cultures with NGTD -Pain control with Tylenol and [place] prn -Consult wound care physician Dr. Ramirez, appreciate recommendations -Case management to arrange f/up with Dr. Ramirez in wound center after discharge -Will plan to transition to po Keflex/Bactrim at discharge. Chronic Systolic CHF: Echo 01/25/17 with moderate LVH; severely reduced systolic function EF 25-30%. Patient evaluated by cardiology Dr. Castaneda on previous admission January 2017, not a candidate for AICD at that time secondary to noncompliance and needs at least 3months on optimal meds (initiated on that admission). -Continue home meds including aspirin, ACEi, BB, lasix, metolazone -monitor on telemetry Hypertension: chronic, BP fairly well controlled -continue lisinopril and coreg -monitor BP, adjust antihypertensives as needed Hypokalemia: acute, K 3.2, suspect secondary to diuresis -continue po KCl replacement bid -Mag wnl -monitor BMP and replace electrolytes as needed DVT Prophylaxis: Lovenox Discharge Planning Possible discharge today or tomorrow if cleared by podiatry. Plan to d/c on Keflex/Bactrim. Outpatient follow up with [facility] to be arranged by case management. 1400hrs: Patient cleared by podiatry for discharge. Will discharge home after arrangements made by case management for wound care f/up. 1555hrs: Per case management, outpatient wound care cannot start until SaturdayApr 23. manager decision support discussed with Dr. Ramirez who recommended keeping in hospital until tomorrow, discharge after dressing changes completed. Discussed with Dr. Ramirez, agrees with antibiotics, ok to discharge tomorrow. Maite Hung PA-C Apr 18, 2017 11:51 am
[2017-04-18] MEDS ORDERED: SULF1TAB23 PO (13:42)
[2017-04-18] MEDS ORDERED: CEPH500C PO (13:42)
--- NOTE | 2017-04-18 14:16 | HHI.DCPOC ---
Discharge Care Plan Diagnosis: (1) Cellulitis of left lower extremity (2) Acute exacerbation of CHF (congestive heart failure) Goals to Promote Your Health * To prevent worsening of your condition and complications * To maintain your health at the optimal level Directions to Meet Your Goals Take your medications as prescribed Follow your dietary instruction Follow activity as directed Keep your appointments as scheduled Take your immunizations and boosters as scheduled If your symptoms worsen call your PCP, if no PCP go to Urgent Care Center or Emergency Room Smoking is Dangerous to Your Health. Avoid second hand smoke Call the 24-hour hour crisis hotline for domestic abuse at Maite Hung PA-C Apr 18, 2017 2:16 pm
--- NOTE | 2017-04-18 15:09 | HHI.FF ---
Face to Face Verification Diagnosis: (1) Cellulitis of left lower extremity (2) Acute exacerbation of CHF (congestive heart failure) (3) Venous hypertension, chronic, with ulcer and inflammation (4) Wound of lower extremity Home Health Nursing Order: Medical education Signs/symptoms of disease process Wound care and dressing changes (Nursing to apply Optifoam Gentle AG to the left foot and leg wounds. Cover with ABDs pads and Khloe roll. Change daily. Apply Sachin bandage from toes to knee left.) I have seen patient Jorge Mchugh on 04/18/17. My clinical findings support the need for the requested home health care services because: Ltd mobility - disease progression Limited ability to care for self Infection w/ risk of complications I certify that my clinical findings support that this patient is homebound because: Unsteady gait/balance Unable to use public transportation Maite Hung PA-C Apr 18, 2017 3:09 pm
[2017-04-18] MEDS ORDERED: PHARMACY ORDERED LAB ONE (15:45)
[2017-04-18] MEDS: ACETAMINOPHEN/HYDROcodone 325 MG/7.5 MG TAB PO PRN (21:08)
[2017-04-19 00:24] VITALS: BP 117/72; PULSE 85; RESP 20; TEMP 98.7; O2SAT 94
[2017-04-19] MEDS: PIPERACIL-TAZO 4.5 GM PREMIX 100 ML IV SCH ×2 (02:02→08:25)
[2017-04-19 03:24] VITALS: BP 123/74; PULSE 89; RESP 20; TEMP 98.4; O2SAT 98
[2017-04-19] MEDS: VANCOMYCIN INJ 1,750 MG in SODIUM CHLORID 0.9% 500 ML INJ 500 ML IV SCH (04:00)
[2017-04-19 04:28] VITALS: PULSE 97
[2017-04-19 07:54] VITALS: BP 132/76; PULSE 85; RESP 18; TEMP 98.7; O2SAT 94
--- NOTE | 2017-04-19 08:21 | HHI.DS ---
Discharge Summary Admission Date Apr 16, 2017 at 22:07 Discharge Date: Apr 19, 2017 Admitting Diagnosis left lower extremity cellulitis, infected wound (1) Cellulitis of left lower extremity ICD Code: L03.116 Diagnosis: Principal (2) Hypokalemia ICD Code: E87.6 Diagnosis: Secondary Procedures None Brief History - From Admission History from patient, ER physician to medication, and review of medical records. Patient reported that he came to the hospital because his left lower extremity ulcers have been getting worse and worse. He reports that this has been going on for the past 1 month. He denies being on antibiotics. He reports he was receiving wound care services up until about 2 years ago. After this, due to his insurance changes, he was lost to follow-up with the wound care service. He denies any fever. Denies any history of diabetes. But reports of history of CHF for which he was getting lower extremity swellings. Denies history of PAD. He reports he used to smoke for about 15 years, a pack a week, and quit about 10 years ago. Apart from the above, patient denies any recent fever/nausea/vomiting/diarrhea/ urinary burning or pain on urination. Denies any hematemesis/hematochezia/melena/hematuria. CBC/BMP: 04/17/17 0952 04/18/17 0809 Significant Findings Laboratory Tests Test 04/16/17 04/17/17 04/18/17 04/18/17 17:45 09:52 08:09 15:55 Mean Corpuscular Volume 76.2 FL 76.1 FL (80.0-100.0) (80.0-100.0) Mean Corpuscular Hemoglobin 24.8 PG 25.2 PG (27.0-34.0) (27.0-34.0) Red Cell Distribution Width 20.7 % 20.2 % (11.6-17.2) (11.6-17.2) Platelet Count 451 TH/MM3 (150-450) Monocytes (%) (Auto) 11.2 % 10.6 % (0.0-8.0) (0.0-8.0) Sodium Level 134 MEQ/L (136-145) Potassium Level 3.3 MEQ/L 3.2 MEQ/L 3.1 MEQ/L (3.5-5.1) (3.5-5.1) (3.5-5.1) Chloride Level 93 MEQ/L 96 MEQ/L 97 MEQ/L (98-107) (98-107) (98-107) Carbon Dioxide Level 35.7 MEQ/L 32.5 MEQ/L (21.0-32.0) (21.0-32.0) Blood Urea Nitrogen 19 MG/DL (7-18) Aspartate Amino Transf 44 U/L (15-37) (AST/SGOT) Alkaline Phosphatase 207 U/L (45-117) Total Protein 9.6 GM/DL (6.4-8.2) Albumin 2.8 GM/DL (3.4-5.0) Monocytes # (Auto) 1.0 TH/MM3 (0-0.9) Vancomycin Level Trough 20.5 MCG/ML (5.0-10.0) Imaging Last Impressions Aorta w/Runoff CTA 04/16/17 0000 Signed Impressions: Service Date/Time: Sunday, April 16, 2017 20:15 - CONCLUSION: 1. Atherosclerotic changes with areas of mild narrowing at the trifurcation of the distal legs but no significant stenosis or occlusion. 2. Cholelithiasis. 3. Diverticulosis without diverticulitis. Clyde Russell MD PE at Discharge GENERAL: Well-nourished, well-developed pleasant obese middle aged AA male patient in [facility]. SKIN: Warm and dry. No rash. HEENT: Normocephalic. Atraumatic.Pupils equal and round. Mucous membranes pink and moist. NECK: Supple. Trachea midline. CARDIOVASCULAR: Regular rate and rhythm. S1, S2 noted. No murmur appreciated. RESPIRATORY: No accessory muscle use. Clear to auscultation. Breath sounds equal bilaterally. GASTROINTESTINAL: Abdomen soft, non-tender, nondistended. Normoactive bowel sounds x4. MUSCULOSKELETAL: No obvious deformities. Bilateral lower extremity with 1+ edema. Left tate and ankle with Sachin wrap in place, CDI. NEUROLOGICAL: Awake and alert. No obvious cranial nerve deficits. Motor grossly within normal limits. Normal speech. Pt update on day of discharge Patient denies any acute overnight events. He feels like the pain and swelling in his left leg have continued to improve somewhat overnight. He's been ambulatory. He denies any fevers or chills. He verbalizes understanding of the plan to follow up outpatient with the wound Center next Saturday. Hospital Course 52-year-old male with history of CHF EF 25-30%, HTN, and chronic lower extremity edema/wounds, presents with worsening LLE wounds/edema, concern for infection. LLE Cellulitis with Non-healing Wounds: seen by PCP at [facility] in office, sent to ER for evaluation/treatment of cellulitis. Appears acute cellulitis on chronic wounds. Afebrile, no leukocytosis, lactic acid 0.9. -CTA Aorta w/Runoff showed atherosclerotic changes but no significant stenosis/occlusion -Given IV antibiotics with Zosyn and Vanco, wound culture growing group A strep and staph aureus, transition to oral Bactrim and Keflex at discharge -Consulted wound care physician Dr. Ramirez, appreciate recommendations, case management has arranged f/up with Dr. Ramirez in wound center after discharge Chronic Systolic CHF: Echo 01/25/17 with moderate LVH; severely reduced systolic function EF 25-30%. Patient evaluated by cardiology Dr. Castaneda on previous admission January 2017, not a candidate for AICD at that time secondary to noncompliance and needs at least 3months on optimal meds (initiated on that admission). -Continue home meds including aspirin, ACEi, BB, lasix, metolazone -Continue outpatient cardiology follow-up Pt Condition on Discharge: Stable Discharge Disposition: Discharge Home Discharge Time: > 30 minutes Discharge Instructions DIET: Follow Instructions for: Heart Healthy Diet Activities you can perform: Regular-No Restrictions Follow up Referrals: PCP Follow-up - 1 Week Wound Care Clinic - Next Day with [facility] New Medications: Cephalexin (Cephalexin) 500 Mg Cap 500 MG PO Q8H Infection #30 Ref 0 CAP Sulfamethoxazole-Trimethoprim (Sulfamethoxazole-Trimethoprim) 800-160 Mg Tab 1 TAB PO BID Infection #20 Ref 0 TAB Continued Medications: Aspirin (Aspirin Low Dose) 81 Mg Chew 81 MG CHEW DAILY antiplatelet #30 Ref 1 TAB Carvedilol (Carvedilol) 25 Mg Tab 25 MG PO BID #60 Ref 1 TAB Furosemide (Furosemide) 40 Mg Tab 40 MG PO BID diuretic #60 Ref 1 TAB Lisinopril (Lisinopril) 20 Mg Tab 20 MG PO DAILY hypertension #30 Ref 1 TAB Metolazone (Metolazone) 2.5 Mg Tab 2.5 MG PO DAILY #30 Ref 1 TAB Potassium Chloride Microencaps (Potassium Chloride Microencaps) 20 Meq Tab 20 MEQ PO BID electrolyte supplement. #60 Ref 1 TAB Maulik Garza Apr 19, 2017 08:21 Saskia Day DO Apr 20, 2017 22:37
[2017-04-19] MEDS: CARVEDILOL 12.5 MG TAB PO SCH (08:25)
[2017-04-19] MEDS: METOLAZONE 2.5 MG TAB PO SCH (08:25)
[2017-04-19] MEDS: POTASSIUM CHLORIDE 20 MEQ CONTROLLED RELEASE TAB PO SCH (08:26)
[2017-04-19] MEDS: FUROSEMIDE 40 MG TAB PO SCH (08:26)
[2017-04-19] MEDS: ASPIRIN 81 MG CHEW TAB CHEW SCH (08:26)
[2017-04-19] MEDS: ENOXAPARIN SODIUM 40 MG/0.4 ML SYRINGE SQ SCH (08:26)
[2017-04-19] MEDS: LISINOPRIL 20 MG TAB PO SCH (08:26)
[2017-04-19] MEDS: SODIUM CHLORIDE 0.9% FLUSH 10 ML FLUSH IV FLUSH SCH (08:26)
[2017-04-19] MEDS ORDERED: VANCOMYCIN INJ 1,250 MG in SODIUM CHLOR 0.9% 250 ML INJ 250 ML IV SCH (10:00)
[2017-04-20] MEDS ORDERED: PHARMACY ORDERED LAB ONE (21:45)
[2017-04-23] MEDS ORDERED: TRAM50TA PO (14:29)
== END 2017-04-19 13:52 | disposition home or self-care (01) ==
LOC: NEPC 13:05 → NEDA 22:07 → NEPGCP 23:46
PROVIDERS: ADMIT Hospitalist; ATTEND Hospitalist
DX: I87.8 Other specified disorders of veins (principal); I87.2 Venous insufficiency (chronic) (peripheral); L97.929 Non-pressure chronic ulcer of unspecified part of left lower leg with unspecified severity; L03.116 Cellulitis of left lower limb; M79.605 Pain in left leg; E87.3 Alkalosis; E87.6 Hypokalemia; T50.2X5A Adverse effect of carbonic-anhydrase inhibitors, benzothiadiazides and other diuretics, initial encounter; I11.0 Hypertensive heart disease with heart failure; I50.22 Chronic systolic (congestive) heart failure; K57.90 Diverticulosis of intestine, part unspecified, without perforation or abscess without bleeding; K80.20 Calculus of gallbladder without cholecystitis without obstruction; I70.0 Atherosclerosis of aorta; E66.9 Obesity, unspecified; E78.00 Pure hypercholesterolemia, unspecified; Z79.82 Long term (current) use of aspirin; Z79.899 Other long term (current) drug therapy; Z87.891 Personal history of nicotine dependence
CPT/HCPCS: 75635; 80048; 80053; 80202; 83605; 83735; 85025; 86403; 87040; 87070; 87147; 87186; 96365; 96375; 99285; G0378; J1650; J2270; J2405; J2543; J3370; J7040; J7050; Q9967; 87205